=== PATIENT | female | born 1950 | race Caucasian/White ===

== ENCOUNTER 2019-01-22 22:19 | Observation (INO) ==
--- NOTE | 2019-01-22 22:23 | Emergency Department Note ---
Disposition Clinical Impression: CVA (cerebral vascular accident) Qualifiers: CVA mechanism: other Qualified Code(s): I63.89 - Other cerebral infarction Disposition: Admitted As Inpatient Condition: Fair [facility]Primary Care Provider[facility] - Forms: ED Satisfaction Letter Time of Disposition: 23:17 Neuro HPI - General Stated Complaint: CVA Time Seen by Provider: 01/22/19 22:22 Source: patient Mode of arrival: EMS Limitations: no limitations Nursing Notes Reviewed: Yes Vital Signs Reviewed: Yes - History of Present Illness HPI Narrative: Patient is a 68-year-old female who is presenting via EMS from [facility] for abdominal concern and neurological changes. Patient with history of type 2 diabetes, COPD, TIA 1 year ago. Per [facility] as well as the patient, approximately one week ago, she had a headache with subsequent right hand numbness tingling and weakness, as well as some drooping to the right side of her face. She states this is gone unchanged for the past week. She denies any trauma or fall, she is on any anticoagulation medication. She denies any lower extremity weakness or sensation changes. She also states that she has been having difficulty with ambulation and feeling unsteady on her feet. She denies any falls. Patient denies any history of neurological deficits following her TIA. Per patient presently 2 months ago she had been admitted to the [facility], following this incident she had a scab to her right mid abdomen following heparin injections. About one month ago she noticed that there was a drainage from the site she described it is yellow, she states this is been very tender to touch is noticed some slight redness. She has not had any drainage for the past few weeks, she has had slight scant blood from the area. She denies any fevers or chills. - Related Data Home Medications: Home Medications Medication Instructions Recorded Confirmed Aspirin [Lo-Dose Aspirin EC] 81 mg PO DAILY 06/15/17 06/30/17 Cetirizine HCl [Zyrtec] 10 mg PO DAILY 06/15/17 06/30/17 Cholecalciferol (Vitamin D3) 2,000 unit PO DAILY 06/15/17 06/30/17 [Vitamin D3] Ferrous Sulfate [Slow Release Iron] 47.5 mg PO BID 06/15/17 06/30/17 Guaifenesin [Mucus Relief] 400 mg PO DAILY 06/15/17 06/30/17 Insulin Glargine [Lantus] 36 unit SQ BID 06/15/17 06/30/17 Insulin LISPRO [HumaLOG] 0 units SQ TIDWM 06/15/17 06/30/17 Losartan Potassium [Cozaar] 100 mg PO DAILY 06/15/17 06/30/17 Omeprazole [PriLOSEC] 20 mg PO DAILY 06/15/17 06/30/17 Potassium Chloride [Klor-Con 10] 10 meq PO DAILY 06/15/17 06/30/17 Pregabalin [Lyrica] 100 mg PO TID 06/15/17 06/30/17 Rosuvastatin Calcium [Crestor] 20 mg PO DAILY 06/15/17 06/30/17 Topiramate [Trokendi Xr] 50 mg PO DAILY 06/15/17 06/30/17 Calcium Carbonate [Calcium] 500 mg PO DAILY 06/30/17 06/30/17 Metoprolol [Lopressor] 5 mg PO DAILY 06/30/17 06/30/17 Multivitamin,Stress Formula 1 each PO DAILY 06/30/17 06/30/17 [Stress Formula] [place]-3 Fatty Acids/Fish Oil [[facility] 1 tab PO DAILY 06/30/17 06/30/17 Fish Oil 1,000 mg Softgel] Allergies/Adverse Reactions: Allergies Allergy/AdvReac Type Severity Reaction Status Date / Time atorvastatin Allergy Agitated Verified 06/30/17 15:20 All systems ED: reviewed and negative except as stated. Review of Systems: As Per HPI Constitutional: Denies: fever, chills ENT ED: Denies: congestion Cardiovascular: Denies: chest pain, palpitations, edema Respiratory: Denies: cough, dyspnea, wheezes, sputum production Gastrointestinal: Reports: abdominal pain. Denies: nausea, vomiting Genitourinary: Denies: urgency Musculoskeletal: Denies: back pain Integumentary: Denies: rash Neurological: Reports: weakness, numbness, paresthesias. 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 - Social History Smoking Status: Current every day smoker Smokeless Tobacco Status: No Alcohol use: Reports: none Drug use: Reports: none Physical Exam - General Limitations: no limitations General appearance: alert, in no apparent distress - Head Head exam: atraumatic, normocephalic, normal inspection - Eye Eye exam: Present: normal appearance, PERRL, EOMI - ENT ENT exam: normal exam, normal oropharynx, mucous membranes moist - Neck Neck exam: Present: normal inspection, full ROM, trachea midline - Chest Chest inspection: Present: normal inspection, symmetric chest wall rise - Respiratory Respiratory exam: Present: normal lung sounds bilaterally - Cardiovascular Cardiovascular exam: Present: regular rate, normal rhythm, normal heart sounds - Abdominal Exam Abdominal exam: Present: soft, Non-Tender, other (Patient with a 0.5 cm x 0.5 cm scab to the right mid abdomen, without fluctuance, induration or surrounding erythema. No cellulitic changes noted to the skin. No bleeding noted.). Absent: distention, guarding, rebound - Extremities Exam Extremities exam: Present: normal inspection, full ROM. Absent: tenderness, pedal edema - Neurological Exam Neurological exam: Present: alert, oriented X3 - Expanded Neurological Exam Patient oriented to: Present: person, place, time Speech: Present: fluid speech Cranial nerves: EOM function (II, III, IV, ): Normal, facial sensation (V): Normal, facial palsy (VII): Abnormal Right, gag reflex (IX): Normal, spinal accessory function (XI): Normal, tongue deviation (XII): Normal Cerebellar function: finger to nose: Normal Motor strength - LUE: 4/5 Motor strength - RUE: 5/5 Motor strength - LLE: 5/5 Motor strength - RLE: 5/5 Upper motor neuron exam: michelle neglect: Absent bilaterally, pronator drift: Absent bilaterally Sensory exam upper extremity: light touch: Normal Sensory exam lower extremity: light touch: Normal Coma Scale Eye Opening: Spontaneous Coma Scale Motor Response: Obeys Commands Coma Scale Verbal Response: Oriented Coma Scale Total: 15 - Psychiatric Psychiatric exam: Present: normal affect, normal mood - Skin Skin exam: Present: warm, dry, intact, normal color Course Vital Signs Temperature 98.4 F 01/22/19 22:35 Pulse Rate 86 01/22/19 22:35 Respiratory Rate 16 01/22/19 22:35 Blood Pressure 147/81 01/22/19 22:35 O2 Sat by Pulse Oximetry 97 01/22/19 22:35 Temperature 98.4 F 01/22/19 22:35 Pulse Rate 86 01/22/19 22:35 Respiratory Rate 16 01/22/19 22:35 Blood Pressure 147/81 01/22/19 22:35 O2 Sat by Pulse Oximetry 97 01/22/19 22:35 Oxygen Delivery Oxygen Delivery Room Air Neuro Symptoms/Deficit - MDM Narrative Medical decision making narrative: Patient is a 68-year-old female who is presenting with multiple complaints. Patient was sent [facility] the [facility] via [facility] for new neurological deficit. Patient states that approximate one week ago she began to have right-sided facial drooping as well as right hand weakness. This has been unchanged for the past week with no new neurological changes. On examination, patient is alert and oriented 3, GCS of 15, NIH of 1, patient is outside the TPA candidate window is been going on for 1 week. No new neuro neurological findings within the past 24 hours. Patient was sent from the [facility] with lab work performed, CBC is unremarkable, BMP shows normal electrolytes with a serum creatinine of 2.15. Patient also had a CT of the head performed which showed no acute intracranial changes. There is redemonstration of findings suggestive of age-related atrophy and minimal chronicle microvascular ischemic changes. Chronic lacunar infarct versus prominent perivascular space involving the right inferior putamen. This is similar to prior examination. At this point in time, patient will be admitted further neurological evalu ations. Do not feel as though acute management is necessary. Stroke alert was not called this is been ongoing for the past week and unchanged. No further imaging is needed at this point in time, as the [facility] has already performed this. Further blood work was artery performed by the [facility]. No further abdominal workup is necessary, this appears to be a cutaneous scab without fluctuance or induration. No further imaging is necessary. Patient admitted by Dr. Cuadra at 2340. - Medical Records Medical records reviewed: Yes I reviewed the patient's medical records. - Lab Data Lab results reviewed: Yes I reviewed the patient's lab results. - Radiology Data Radiology results reviewed: Yes I reviewed the patient's radiology results. NIH Stroke Scale - Level of Consciousness LOC: Alert - LOC Questions LOC Questions: Answers both correctly - LOC Commands LOC Commands: Performs both correctly - Best Gaze Best Gaze: Normal - Visual Visual: No visual loss - Facial Palsy Facial Palsy: Minor asymmetry on smiling, flattened nasolabial fold - Motor Arms Motor Arm-Left: No drift for 10 seconds Motor Arm-Right: No drift for 10 seconds - Motor Legs Motor Leg-Left: No drift for 5 seconds Motor Leg-Right: No drift for 5 seconds - Limb Ataxia Limb Ataxia: Absent of affected limb too weak to perform exam - Sensory Sensory: Normal - Best Language Best Language: No aphasia - Dysarthria Dysarthria: Normal - Extinction and Inattention Extinction and Inattention: Normal - NIHSS Total Score NIHSS Total Score: 1 TPA Checklist - LKW: 3-4.5 hrs Add. Warnings/Precautions Patient/family understanding: The patient/family members have been counseled and understood the risk, benefit, and alternatives of treatment.
--- NOTE | 2019-01-22 22:38 | Emergency Department Note ---
Disposition Clinical Impression: CVA (cerebral vascular accident) Qualifiers: CVA mechanism: unspecified Qualified Code(s): I63.9 - Cerebral infarction, unspecified Disposition: Admitted As Inpatient Condition: Good Time of Disposition: 23:17 General Adult HPI - General Stated complaint: CVA Time Seen by Provider: 01/22/19 22:22 - Related Data Home Medications Medication Instructions Recorded Confirmed Aspirin [Lo-Dose Aspirin EC] 81 mg PO DAILY 06/15/17 01/22/19 Cetirizine HCl [Zyrtec] 10 mg PO DAILY 06/15/17 01/22/19 Cholecalciferol (Vitamin D3) 2,000 unit PO DAILY 06/15/17 01/22/19 [Vitamin D3] Ferrous Sulfate [Slow Release Iron] 65 mg PO BID 06/15/17 01/22/19 Guaifenesin [Mucus Relief] 400 mg PO DAILY 06/15/17 01/22/19 Insulin Glargine [Lantus] 66 unit SQ BID 06/15/17 01/22/19 Insulin LISPRO [HumaLOG] 45 units SQ TIDWM 06/15/17 01/22/19 Losartan Potassium [Cozaar] 100 mg PO DAILY 06/15/17 01/22/19 Omeprazole [PriLOSEC] 20 mg PO DAILY 06/15/17 01/22/19 Potassium Chloride [Klor-Con 10] 10 meq PO DAILY 06/15/17 01/22/19 Pregabalin [Lyrica] 75 mg PO BID 06/15/17 01/22/19 Rosuvastatin Calcium [Crestor] 20 mg PO DAILY 06/15/17 01/22/19 Topiramate [Trokendi Xr] 50 mg PO DAILY 06/15/17 01/22/19 Calcium Carbonate [Calcium] 500 mg PO DAILY 06/30/17 01/22/19 Metoprolol [Lopressor] 5 mg PO DAILY 06/30/17 01/22/19 Multivitamin,Stress Formula 1 each PO DAILY 06/30/17 01/22/19 [Stress Formula] [place]-3 Fatty Acids/Fish Oil [[facility] 1 tab PO DAILY 06/30/17 01/22/19 Fish Oil 1,000 mg Softgel] Allergies Allergy/AdvReac Type Severity Reaction Status Date / Time atorvastatin Allergy Agitated Verified 01/11/18 15:20 metformin Allergy See Verified 01/23/19 01:36 Comments Past Medical History - Past Medical History Medical history: Reports: COPD, diabetes, hyperlipidemia, hypertension, liver disease, migraine, renal disease, other Psychiatric history: Reports: anxiety 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 - Social History Smoking Status: Current every day smoker Smokeless Tobacco Status: No Alcohol use: Reports: none Drug use: Reports: none Course Vital Signs Temperature 98.4 F 01/22/19 22:35 Pulse Rate 86 01/22/19 22:35 Respiratory Rate 16 01/22/19 22:35 Blood Pressure 147/81 01/22/19 22:35 O2 Sat by Pulse Oximetry 97 01/22/19 22:35 Temperature 98.1 F 01/23/19 11:57 Pulse Rate 72 01/23/19 11:57 Respiratory Rate 15 01/23/19 11:57 Blood Pressure 138/65 01/23/19 11:57 O2 Sat by Pulse Oximetry 96 01/23/19 11:57 Oxygen Delivery Oxygen Delivery Room Air Medical Decision Making - Lab Data Result diagrams: 01/23/19 04:34 01/23/19 04:34 Attestation Statement - Attestation Attestation: I examined this patient and my medical decision-making was reviewed with the Resident Physician. I agree with the documented findings, disposition and treatment plan as described except to the extent set forth below. Patient 68-year-old female that presents to emergency department with chief complaint of right-sided weakness. Patient states that for the last week she has noticed that she had a right-sided facial droop and no she has had decreased strength in her right upper extremity. Patient reports [facility] where she had a CT head and labs done and the patient was transferred to our facility for a neurological evaluation. Physical exam patient is awake alert and in no acute distress patient has a right-sided facial droop and decreased strength in her right upper extremity. Medical decision management the test for review from the [facility] and the case will be discussed with the hospitalist and the plan is to admit the patient for a CVA workup.
--- NOTE | 2019-01-22 23:00 | Emergency Department Note ---
Disposition Clinical Impression: CVA (cerebral vascular accident) Qualifiers: CVA mechanism: unspecified Qualified Code(s): I63.9 - Cerebral infarction, unspecified Disposition: Admitted As Inpatient Condition: Fair Time of Disposition: 23:30 General Adult HPI - General Chief complaint: ED Neuro Symptoms/Deficit Stated complaint: CVA Time Seen by Provider: 01/22/19 22:22 Source: patient - History of Present Illness HPI Narrative: 68 yo female with PMH of stroke, HTN, HLD, renal disease, migraines, diabetes, and COPD. Pt reports she had a headache that was abnormal from the regular migraines. Pt describes the acute onset of headache located in the temples and back of the head, describes the pain as a constant, throbbing/pressure-type. Going to sleep relieves the pain. Pt denies worsening factors. 3-4/10 in severity. Pt reports she experienced a right sided facial weakness, slurring of her speech, and numbness and tingling in her hands and fingers shortly after onset of headache. Pt reports no changes in vision or hearing, no changes in SOB, no N/V, no changes in urination. [facility] rec[facility]ved a work-up for stroke and was transferred to [facility] for admittance to the floor. [facility] the [facility] to [facility]o stroke. CT of head and blood work was taken. Pt reports having headaches. BALLESTEROS tightening around her head. Pain around the temples and back of head worse on the right. Acute onset. Constant pain. Throbbing / pressure-type pain. Going to sleep relieves. No worsening factors. 3-4/10 now. Usually gets headaches but this was abnormal. Nausea. Pain Scale: 5 - Related Data Home Medications Medication Instructions Recorded Confirmed Aspirin [Lo-Dose Aspirin EC] 81 mg PO DAILY 06/15/17 01/22/19 Cetirizine HCl [Zyrtec] 10 mg PO DAILY 06/15/17 01/22/19 Cholecalciferol (Vitamin D3) 2,000 unit PO DAILY 06/15/17 01/22/19 [Vitamin D3] Ferrous Sulfate [Slow Release Iron] 65 mg PO BID 06/15/17 01/22/19 Guaifenesin [Mucus Relief] 400 mg PO DAILY 06/15/17 01/22/19 Insulin Glargine [Lantus] 66 unit SQ BID 06/15/17 01/22/19 Insulin LISPRO [HumaLOG] 45 units SQ TIDWM 06/15/17 01/22/19 Losartan Potassium [Cozaar] 100 mg PO DAILY 06/15/17 01/22/19 Omeprazole [PriLOSEC] 20 mg PO DAILY 06/15/17 01/22/19 Potassium Chloride [Klor-Con 10] 10 meq PO DAILY 06/15/17 01/22/19 Pregabalin [Lyrica] 75 mg PO BID 06/15/17 01/22/19 Rosuvastatin Calcium [Crestor] 20 mg PO DAILY 06/15/17 01/22/19 Topiramate [Trokendi Xr] 50 mg PO DAILY 06/15/17 01/22/19 Calcium Carbonate [Calcium] 500 mg PO DAILY 06/30/17 01/22/19 Metoprolol [Lopressor] 5 mg PO DAILY 06/30/17 01/22/19 Multivitamin,Stress Formula 1 each PO DAILY 06/30/17 01/22/19 [Stress Formula] [place]-3 Fatty Acids/Fish Oil [[facility] 1 tab PO DAILY 06/30/17 01/22/19 Fish Oil 1,000 mg Softgel] Allergies Allergy/AdvReac Type Severity Reaction Status Date / Time atorvastatin Allergy Agitated Verified 06/30/17 15:20 metformin Allergy See Verified 01/23/19 01:36 Comments Constitutional: Reports: weakness (New onset ) Eyes: Denies: vision change Cardiovascular: Denies: chest pain, palpitations, dyspnea on exertion, edema, syncope Respiratory: Denies: cough, dyspnea, wheezes, hemoptysis, stridor Gastrointestinal: Reports: diarrhea. Denies: abdominal pain, vomiting Neurological: Reports: headache, numbness (hand and fingers more on the right ), paresthesias, other (Slurring of speech out of the normal ). 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 - Social History Smoking Status: Current every day smoker Smokeless Tobacco Status: No Alcohol use: Reports: none Drug use: Reports: none Physical Exam - General General appearance: alert Course Vital Signs Temperature 98.4 F 01/22/19 22:35 Pulse Rate 86 01/22/19 22:35 Respiratory Rate 16 01/22/19 22:35 Blood Pressure 147/81 01/22/19 22:35 O2 Sat by Pulse Oximetry 97 01/22/19 22:35 Temperature 98.0 F 01/23/19 01:15 Pulse Rate 81 01/23/19 01:15 Respiratory Rate 17 01/23/19 01:15 Blood Pressure 117/67 01/23/19 01:15 O2 Sat by Pulse Oximetry 94 01/23/19 01:15 Oxygen Delivery Oxygen Delivery Room Air
[2019-01-22] MEDS ORDERED: 0.9 % Sodium Chloride 1,000 ML IVC ONE (23:31)
[2019-01-23] MEDS ORDERED: *HR* Dextrose 50 % in Water (Syg) 50 ML SYRINGE IVP PRN (01:00)
[2019-01-23] MEDS ORDERED: Dextrose Gel 15 GM/37.5 ML TUBE PO PRN ×2 (01:00)
[2019-01-23] MEDS ORDERED: D5% in Water 1,000 ML IVC PRN (01:00)
[2019-01-23] MEDS ORDERED: Insulin DETEMIR 100 UNIT/ML X5UNITS SQ SCH (01:15)
[2019-01-23] MEDS: Insulin LISPRO 300 UNITS/3 ML VIAL SQ SCH ×3 (01:47→12:23)
[2019-01-23 05:53] LABS: Bilirubin,Urine Negative (Negative); Blood,Urine Negative (Negative); Clarity,Urine Cloudy (Clear); Color,Urine Yellow (Yellow); Glucose,Urine (UA) >=1000 mg/dL (Normal); Ketones,Urine Negative (Negative); Leukocyte Esterase,Urine Negative (Negative); Nitrite,Urine Negative (Negative); Protein,Urine Negative (Neg-Trace); Urobilinogen,Urine Normal (Normal)
[2019-01-23 05:55] LABS: Bacteria,Urine None Seen per hpf (None-Few); Hyaline Casts,Urine None Seen per lpf (None-Few); RBC,Urine 0-3 per hpf (0-3); Squamous Epithelial Cell,Urine Many per lpf (None-Few); WBC,Urine 0-3 per hpf (0-3)
--- NOTE | 2019-01-23 05:56 | Internal Med History&Physical ---
Date of Encounter: 01/23/19 Time of Encounter: 05:48 Internal Medicine - H&P: HPI Chief complaint: Right hand weakness History of present illness: Ms. Simeon is a 68 year old female with a past medical history of type 2 diabetes, diabetes gastroparesis, chronic low back pain, chronic kidney disease, anxiety disorder, hypertension who presented to the ED from the [place] due to concern for neurologic changes. [facility] as well as the patient, approximately one week ago, she had a headache with subsequent right hand numbness tingling and weakness, as well as some drooping to the right side of her face. She states this is unchanged for the past week. She denies any trauma or fall, she is on any anticoagulation medication. She denies any lower extremity weakness or sensation changes. She also states that she has been having difficulty with ambulation and feeling unsteady on her feet. Patient does have a history of diabetic neuropathy. Patient does report a previous history of a "mini stroke". Patient does currently smoke half pack a day and has a chronic smoking history. She reports difficult to control diabetes with a elevated hemoglobin A1c in the double digits. No family history of stroke. On initial assessment patient was afebrile, hemodynamically stable. Initial NIH of 1. [facility], CBC is unremarkable, BMP shows normal electrolytes with a serum creatinine of 2.15. Patient also had a CT of the head performed which showed no acute intracranial changes. There is redemonstration of findings suggestive of age-related atrophy and minimal chronicle microvascular ischemic changes. Chronic lacunar infarct versus prominent perivascular space involving the right inferior putamen. This is sim ilar to prior examination. Patient will be admitted for further CVA/TIA workup. Past Med Surg Social Fam HX - Past Medical History Medical history: COPD, diabetes, hyperlipidemia, hypertension, liver disease, migraine, renal disease, other Additional medical history: Enlarged nodes, neuropathy, vascular dementia, hernia, anemia Psychiatric history: anxiety - Past Surgical History Surgical History: appendectomy, cholecystectomy Additional surgical history: thyroid biopsy, hemicolectomy - Social History Smoking Status: Current every day smoker Packs per day: 0.5 Smokeless Tobacco Status: No Alcohol use: none Drug use: none - Family History Grandfather Hx Family Cancer: Yes (lung) Internal Medicine - H&P: Meds Aspirin [Lo-Dose Aspirin EC] 81 mg PO DAILY 06/15/17 [History] Cetirizine HCl [Zyrtec] 10 mg PO DAILY 06/15/17 [History] Cholecalciferol (Vitamin D3) [Vitamin D3] 2,000 unit PO DAILY 06/15/17 [History] Ferrous Sulfate [Slow Release Iron] 65 mg PO BID 06/15/17 [History] Guaifenesin [Mucus Relief] 400 mg PO DAILY 06/15/17 [History] Insulin Glargine [Lantus] 66 unit SQ BID 06/15/17 [History] Insulin LISPRO [HumaLOG] 45 units SQ TIDWM 06/15/17 [History] Losartan Potassium [Cozaar] 100 mg PO DAILY 06/15/17 [History] Omeprazole [PriLOSEC] 20 mg PO DAILY 06/15/17 [History] Potassium Chloride [Klor-Con 10] 10 meq PO DAILY 06/15/17 [History] Pregabalin [Lyrica] 75 mg PO BID 06/15/17 [History] Rosuvastatin Calcium [Crestor] 20 mg PO DAILY 06/15/17 [History] Topiramate [Trokendi Xr] 50 mg PO DAILY 06/15/17 [History] Calcium Carbonate [Calcium] 500 mg PO DAILY 06/30/17 [History] Metoprolol [Lopressor] 5 mg PO DAILY 06/30/17 [History] Multivitamin,Stress Formula [Stress Formula] 1 each PO DAILY 06/30/17 [History] [place]-3 Fatty Acids/Fish Oil [Cvs Fish Oil 1,000 mg Softgel] 1 tab PO DAILY 06/30/17 [History] Allergy/AdvReac Type Severity Reaction Status Date / Time atorvastatin Allergy Agitated Verified 06/30/17 15:20 metformin Allergy See Verified 01/23/19 01:36 Comments All Systems PM: A 10-system review of systems was performed and is negative for pertinent findings except as documented above in the HPI. - Constitutional Constitutional: no chills, no fever(s), no night sweats - EENT Eyes: no change in vision, no discharge, no pain, no photophobia Ears: no ear discharge, no ear pain, no tinnitus Nose, mouth and throat: no dysphagia, no nasal discharge, no neck pain, no sore throat - Cardiovascular Cardiovascular ROS IM: no chest pain, no diaphoresis, no dyspnea, no lightheadedness, no palpitations, no syncope - Respiratory Respiratory: no cough, no dyspnea, no wheezing, no excessive phlegm production - Gastrointestinal Gastrointestinal: no abdominal pain, no diarrhea, no hematemesis, no hematochezia, no melena, no nausea, no vomiting - Genitourinary Genitourinary: no change in urinary stream, no dysuria, no flank pain, no hematuria - Musculoskeletal Musculoskeletal ROS IM: no numbness, no tingling - Integumentary Integumentary IM: no rash, no unusual bruising - Neurological Neurological ROS: no confusion, no convulsions, no focal weakness, no numbness, no tingling, no tremor(s) - Hematologic/Lymphatic Hematologic/Lymphatic: no easy bruising - Constitutional Vitals: Temp Pulse Resp BP Pulse Ox 98.0 F 81 17 117/67 94 01/23/19 01:15 01/23/19 01:15 01/23/19 01:15 01/23/19 01:15 01/23/19 01:15 Exam: General: Alert and oriented 3 Skin:Normal color, no rash, no lesions. HEENT:EOM, pupils equal, round and reactive. Cardiovascular:Normal S1 & S2, no rubs, murmurs or gallops. No JVD. Pulse regular. Lungs:Normal breath sounds, no wheezes or crackles. Abdomen:Soft, non-tender, no rigidity. Extremities:No deformity, no edema or tenderness, no joint swelling or clubbing. Neurological:Normal cognition ; cranial nerves II through XII intact; no evidence of pronator drift; sensation intact; no dysmetria; muscle strength in the upper and lower extremities 5 out of 5 bilaterally Pulses:Carotid and radial pulses normal +2. Rest of the physical exam is non contributory Internal Med - H&P Results - Labs CBC & Chem 7: 01/23/19 04:34 01/23/19 04:34 - Assessment and Plan (1) Stroke-like symptoms Current Visit: Yes Status: Acute Assessment and plan: Patient presenting with 1 week history of reported right-sided facial droop, numbness and tingling and right hand weakness. Given duration of symptoms stroke alert was not called. CT of the head performed at the [facility] reportedly was unremarkable. Patient has a past medical history significant for hypertension, smoking history and poorly controlled diabetes. Reports episode of a TIA in the past. On my assessment there was no evidence of any facial droop. Sensation was intact. I did not note any diminished strength in the right extremity. Otherwise neurologically intact. -Telemetry -Neurochecks -Lipid panel; A1c -Echocardiogram; bilateral carotid Doppler -MRI in the morning (2) [id number] kidney injury Current Visit: Yes Status: Acute Assessment and plan: Patient has a history of chronic kidney disease likely secondary to poorly controlled diabetes. Initial creatinine of 2.15. Previous creatinine in October of this year was 1.28. Previous to that patient appeared to have a baseline creatinine around 1. -Patient received fluid bolus in the ED -Reassess kidney function in the morning Qualifiers: Acute renal failure type: unspecified Chronic kidney disease stage: unspecified stage Qualified Code(s): N17.9 - Acute kidney failure, unspecified; N18.9 - Chronic kidney disease, unspecified (3) Type 2 diabetes mellitus Current Visit: Yes Status: Acute Assessment and plan: Patient reports history of poorly controlled diabetes. Has a history of diabetic gastroparesis and neuropathy. On arrival patient was hyperglycemic with a serum glucose over 300. -We will start patient on sliding scale plus basal insulin -ADA diet Qualifiers: Diabetes mellitus residential insulin use: unspecified residential insulin use status Diabetes mellitus complication detail: with chronic kidney disease Chronic kidney disease stage: unspecified stage Qualified Code(s): E11.22 - Type 2 diabetes mellitus with diabetic chronic kidney disease (4) Hypertension Current Visit: Yes Status: Acute Assessment and plan: History of hypertension. Resume home antihypertensives. Qualifiers: Hypertension type: essential hypertension Qualified Code(s): I10 - Essential (primary) hypertension (5) DVT prophylaxis Current Visit: Yes Status: Acute Assessment and plan: Subcutaneous heparin - Time Spent With Patient Total time spent is greater than 50% in coordination of care (as documented) at patient's floor/unit and/or counseling patient:
[2019-01-23 06:01] LABS: Amphetamine Screen,Urine Negative ng/mL (Cutoff=1000); Barbiturate Screen,Urine Negative ng/mL (Cutoff=200)
[2019-01-23 06:02] LABS: Benzodiazepines Screen,Urine Negative ng/mL (Cutoff=300); Cannabinoid Screen,Urine Negative ng/mL (Cutoff = 50); Cocaine Screen,Urine Negative ng/mL (Cutoff= 300); Opiate Screen,Urine Negative ng/mL (Cutoff=300); Phencyclidine Screen,Urine Negative ng/mL (Cutoff=25)
[2019-01-23 06:19] LABS: INR 1.1; Prothrombin Time 12.1 Seconds (9.4-12.1)
[2019-01-23 06:21] LABS: Basophils % 0.7 %; Eosinophils # 0.2 K/mcL (0.0-0.6); Eosinophils % 2.9 %; Hematocrit 35.1 % (35.3-44.9); Hemoglobin 10.8 g/dL (11.5-15.4); Immature Granulocytes % 0.5 % (0-4); Lymphocytes # 2.1 K/mcL (0.6-4.6); Mean Corpuscular HGB Conc 30.8 g/dL (31.6-35.5); Mean Corpuscular Hemoglobin 29.5 pg (28.0-33.3); Mean Corpuscular Volume 95.9 fL (83.0-100.0); Mean Platelet Volume 12.6 fL (9.4-12.4); Monocytes # 0.4 K/mcL (0.0-1.3); Monocytes % 6.7 %; Neutrophils # 3.2 K/mcL (1.6-8.9); Platelet Count 123 K/mcL (140-400); Red Blood Count 3.66 M/mcL (3.82-4.97); Red Cell Distribution Width 13.1 % (11.5-14.5); Segmented Neutrophils % 53.2 %; White Blood Count 5.9 K/mcL (4.3-11.1)
[2019-01-23 06:22] LABS: Activated Partial Thrombo Time 32.7 Seconds (26.0-36.0)
[2019-01-23] MEDS: *HR* Heparin 5,000 UNIT/ML VIAL SQ SCH ×2 (06:32→14:26)
[2019-01-23 06:36] LABS: Alanine Aminotransferase 41 Units/L (7-52); Albumin 3.4 g/dL (3.5-5.7); Albumin/Globulin Ratio 1.1 (1.1-2.2); Alkaline Phosphatase 61 Units/L (34-104); Aspartate Amino Transferase 25 Units/L (13-39); BUN/Creatinine Ratio 19 (6-26); Bilirubin,Total 0.2 mg/dL (0.3-1.0); Blood Urea Nitrogen 32 mg/dL (8-23); Calcium 8.7 mg/dL (8.6-10.3); Carbon Dioxide 21 mEq/L (23-29); Chloride 106 mEq/L (98-107); Chol/HDL Ratio 7.9 (0-4.9); Cholesterol 174 mg/dL (< 200); Glucose 303 mg/dL (70-105); HDL Cholesterol 22 mg/dL (40-59); LDL Cholesterol,Direct 66 mg/dL (75-193); Osmolality,Calculated 298 (280-300); Potassium 3.9 mEq/L (3.5-5.1); Sodium 135 mEq/L (136-145); Total Protein 6.4 g/dL (6.4-8.9); Triglycerides 622 mg/dL (< 150); Troponin I 0.05 ng/mL (< 0.04); eGFR For African Americans 38 (> 60); eGFR For Non-African Americans 31 (> 60)
[2019-01-23] MEDS ORDERED: CVS FISH OIL PO SCH (09:00)
[2019-01-23] MEDS ORDERED: Loratadine 10 MG TABLET PO SCH (09:00)
[2019-01-23] MEDS ORDERED: GuaiFENesin Liq 200 MG/10 ML UDC PO SCH (09:00)
[2019-01-23] MEDS ORDERED: Metoprolol XL (24 HR) Succ 25 MG TAB.ER.24H PO SCH (09:00)
[2019-01-23] MEDS ORDERED: Pregabalin 75 MG CAPSULE PO SCH (09:00)
[2019-01-23] MEDS ORDERED: Topiramate 25 MG TABLET PO SCH (09:00)
[2019-01-23] MEDS ORDERED: Vitamin B Complex/Vit C/Vit E 1 EACH TABLET PO SCH (09:00)
[2019-01-23 10:22] LABS: Estimated Average Glucose 252 mg/dl
[2019-01-23] MEDS ORDERED: Cholecalciferol (D-3) 1,000 UNIT (25MCG) TABLET PO SCH (12:00)
[2019-01-23 12:08] VITALS: BP 138/65
--- NOTE | 2019-01-23 14:24 | Electrocardiograph Report ---
[place] [id number] Test Date: 2019-01-23 Pat Name: Casie Simeon Department: 113 Room: 3B Gender: F [employer]: : [id number] Requested By: Donald Cuadra Order Number: [id number] Reading MD: Karla Gracia Measurements Intervals [place] Rate: 81 P: 64 HI: 155 QRS: -4 QRSD: 95 T: 63 QT: 404 QTc: 441 Interpretive Statements SINUS RHYTHM Electronically Signed On 01-23-2019 14:22:49 EDT by Karla Gracia
--- NOTE | 2019-01-23 15:11 | Discharge Summary ---
- NOTES TO OUTPATIENT PROVIDER Notes to Outpatient Provider: f/u with PCP in one week. Please take your inuslin as directed by your PCP.. Your blood sugars are so uncontrolled with your HbA1C @ 10.4. Please quit smoking. Date of Encounter: 01/23/19 Time of Encounter: 15:08 - Discharge Diagnosis (1) Right upper extremity numbness Priority: Primary Status: Acute (2) Bhpqy-[id number]-[id number] kidney injury Priority: Secondary Status: Acute Qualifiers: Acute renal failure type: unspecified Chronic kidney disease stage: unspecified stage Qualified Code(s): N17.9 - Acute kidney failure, unspecified; N18.9 - Chronic kidney disease, unspecified (3) Elevated troponin Priority: Primary Status: Acute (4) Type 2 diabetes mellitus Priority: Secondary Status: Chronic Qualifiers: Diabetes mellitus rn cardiology insulin use: unspecified fci insulin use status Diabetes mellitus complication detail: with chronic kidney disease Chronic kidney disease stage: unspecified stage Qualified Code(s): E11.22 - Ty pe 2 diabetes mellitus with diabetic chronic kidney disease (5) Hypertension Priority: Secondary Status: Acute Qualifiers: Hypertension type: essential hypertension Qualified Code(s): I10 - Essential (primary) hypertension (6) DVT prophylaxis Priority: Secondary Status: Acute Hospital course: Ms. Simeon is a 68 year old female with a past medical history of uncontrolled type 2 diabetes, diabetes gastroparesis, chronic low back pain, chronic kidney disease, anxiety disorder, hypertension who presented to the ED from the [place] due to concern for neurologic changes. [facility] as well as the patient, approximately one week ago, she had a headache with subsequent right hand numbness tingling and weakness, as well as some drooping to the right side of her face. Patient does have a history of diabetic neuropathy. Patient does currently smoke half pack a day and has a chronic smoking history. She reports difficult to control diabetes with a elevated hemoglobin A1c in the double digits. At the [place] hospital patient also had a CT of the head performed which showed no acute intracranial changes. There is redemonstration of findings suggestive of age-related atrophy and minimal chronicle microvascular ischemic changes. She was admitted in the hospital and placed on threat monitoring analyst. She does have slightly elevated troponin @ 0.05, adynamic and flat. Her elevated troponin most likely due to CKD. She denied any CP. Her EKG showed NSR, No acute ST T changes noticed. Her 2 D Echo showed preserved LVEF and mild left ventricular diastolic dysfunction. She did have MRI of Brain does which did not show any acute infarction. Her Rt arm numbness seems to be due to hyperglycemia and peripheral neuro bran.. I did recommend her to f/u with Neuro as an out pt. - Time Spent with Patient Total time spent providing and/or coordinating discharge services: - Discharge Medications Prescriptions: Continued Omeprazole [PriLOSEC] 20 mg PO DAILY Insulin LISPRO [HumaLOG] 45 units SQ TIDWM Losartan Potassium [Cozaar] 100 mg PO DAILY Topiramate [Trokendi Xr] 50 mg PO DAILY Rosuvastatin Calcium [Crestor] 20 mg PO DAILY Pregabalin [Lyrica] 75 mg PO BID Potassium Chloride [Klor-Con 10] 10 meq PO DAILY Insulin Glargine [Lantus] 66 unit SQ BID Guaifenesin [Mucus Relief] 400 mg PO DAILY Ferrous Sulfate [Slow Release Iron] 65 mg PO BID Cholecalciferol (Vitamin D3) [Vitamin D3] 2,000 unit PO DAILY Cetirizine HCl [Zyrtec] 10 mg PO DAILY Aspirin [Lo-Dose Aspirin EC] 81 mg PO DAILY Metoprolol [Lopressor] 5 mg PO DAILY [place]-3 Fatty Acids/Fish Oil [Cvs Fish Oil 1,000 mg Softgel] 1 tab PO DAILY Multivitamin,Stress Formula [Stress Formula] 1 each PO DAILY Calcium Carbonate [Calcium] 500 mg PO DAILY Home Medications: Aspirin [Lo-Dose Aspirin EC] 81 mg PO DAILY 06/15/17 [History] Cetirizine HCl [Zyrtec] 10 mg PO DAILY 06/15/17 [History] Cholecalciferol (Vitamin D3) [Vitamin D3] 2,000 unit PO DAILY 06/15/17 [History] Ferrous Sulfate [Slow Release Iron] 65 mg PO BID 06/15/17 [History] Guaifenesin [Mucus Relief] 400 mg PO DAILY 06/15/17 [History] Insulin Glargine [Lantus] 66 unit SQ BID 06/15/17 [History] Insulin LISPRO [HumaLOG] 45 units SQ TIDWM 06/15/17 [History] Losartan Potassium [Cozaar] 100 mg PO DAILY 12/27/17 [History] Omeprazole [PriLOSEC] 20 mg PO DAILY 06/15/17 [History] Potassium Chloride [Klor-Con 10] 10 meq PO DAILY 06/15/17 [History] Pregabalin [Lyrica] 75 mg PO BID 06/15/17 [History] Rosuvastatin Calcium [Crestor] 20 mg PO DAILY 06/15/17 [History] Topiramate [Trokendi Xr] 50 mg PO DAILY 06/15/17 [History] Calcium Carbonate [Calcium] 500 mg PO DAILY 06/30/17 [History] Metoprolol [Lopressor] 5 mg PO DAILY 06/30/17 [History] Multivitamin,Stress Formula [Stress Formula] 1 each PO DAILY 06/30/17 [History] [place]-3 Fatty Acids/Fish Oil [Cvs Fish Oil 1,000 mg Softgel] 1 tab PO DAILY 06/30/17 [History] Allergies/Adverse Reactions: Allergy/AdvReac Type Severity Reaction Status Date / Time atorvastatin Allergy Agitated Verified 06/30/17 15:20 metformin Allergy See Verified 01/23/19 01:36 Comments Date of admission: 01/23/19 00:09 Primary care physician: PCP [place] - Constitutional Vitals: Temp Pulse Resp BP Pulse Ox 98.1 F 72 15 138/65 96 01/23/19 11:57 01/23/19 11:57 01/23/19 11:57 01/23/19 11:57 01/23/19 11:57 General appearance: Present: cooperative, A&O X 3, no acute distress, answers questions appropriately Exam: Gen: Alert, awake, Oriented to time,place and person Chest: Diminished breath sounds B/L, No wheezing, No crackles, No rales Heart: S1S2+ RRR No murmurs Abd: Soft, NT, BS +, No organomegaly Ext: No edema, pulses are palpable, No calf tenderness Neuro : Rt Arm numbness..Normal motor strength in both upper and lower extremities Skin: No rash. - Patient Status Disposition: Home, Self-Care Condition: Good Overall status at discharge: patient is back to baseline - Discharge Instructions [facility]: [facility] Care Provider[facility] - Fredy Crump [Non-Partnered Physician] - - Diet and Activity Activity: increase activity as tolerated Diet: low salt diet
[2019-01-23] MEDS ORDERED: Aspirin Enteric Coated 81 MG Tablet PO SCH (21:00)
== END 2019-01-23 15:50 | disposition home or self-care (01) ==
LOC: 3BNU 22:19 → EMEROOARM 22:19 → 3BNU 01-23 00:41
PROVIDERS: ADMIT Internal Medicine; ATTEND Internal Medicine

== ENCOUNTER 2020-04-20 21:19 | Inpatient (IN) ==
[2020-04-20] MEDS ORDERED: Famotidine 20 MG/2 ML VIAL IVP ONE (21:51)
[2020-04-20] MEDS ORDERED: Ondansetron 4 MG/2 ML VIAL IVP ONE (21:52)
[2020-04-20] MEDS ORDERED: 0.9 % Sodium Chloride 1,000 ML IVC ONE (21:52)
[2020-04-20] MEDS ORDERED: Isovue-370 500 ML BOTTLE PO ONE (22:22)
[2020-04-20 22:37] LABS: Basophils % 0.9 %; Eosinophils # 0.1 K/mcL (0.0-0.6); Eosinophils % 2.4 %; Hematocrit 29.6 % (35.3-44.9); Hemoglobin 8.8 g/dL (11.5-15.4); Immature Granulocytes % 0.4 % (0-4); Immature Platelets 2.9 % (1.1-6.1); Lymphocytes # 1.2 K/mcL (0.6-4.6); Lymphocytes % 26.4 %; Mean Corpuscular HGB Conc 29.7 g/dL (31.6-35.5); Mean Corpuscular Hemoglobin 31.8 pg (28.0-33.3); Mean Corpuscular Volume 106.9 fL (83.0-100.0); Mean Platelet Volume 11.2 fL (9.4-12.4); Monocytes # 0.4 K/mcL (0.0-1.3); Monocytes % 7.7 %; Neutrophils # 2.8 K/mcL (1.6-8.9); Platelet Count 104 K/mcL (140-400); Red Blood Count 2.77 M/mcL (3.82-4.97); Red Cell Distribution Width 16.5 % (11.5-14.5); Segmented Neutrophils % 62.2 %; White Blood Count 4.5 K/mcL (4.3-11.1)
[2020-04-20 22:43] LABS: INR 1.2; Prothrombin Time 13.9 Seconds (9.4-12.1)
[2020-04-20 22:58] LABS: Albumin 3.7 g/dL (3.5-5.7); Albumin/Globulin Ratio 1.1 (1.1-2.2); Bilirubin,Direct 0.1 mg/dL (0.0-0.2); Bilirubin,Indirect 0.2 mg/dL (0.0-1.0); Bilirubin,Total 0.3 mg/dL (0.3-1.0); Calcium 8.4 mg/dL (8.6-10.3); Globulin 3.4 g/dL (2.4-3.5); Potassium 3.5 mEq/L (3.5-5.1); Total Protein 7.1 g/dL (6.4-8.9)
[2020-04-20 23:04] LABS: Bilirubin,Urine Negative (Negative); Blood,Urine Negative (Negative); Clarity,Urine Clear (Clear); Color,Urine Light-Yellow (Yellow); Glucose,Urine (UA) 500 mg/dL (Normal); Ketones,Urine Negative (Negative); Leukocyte Esterase,Urine Negative (Negative); Mucus,Urine Few per lpf (None-Few); Nitrite,Urine Negative (Negative); Protein,Urine Trace mg/dL (Neg-Trace); RBC,Urine 0-3 per hpf (0-3); Specific Gravity,Urine 1.018 (1.010-1.025); Squamous Epithelial Cell,Urine Few per hpf (None-Few); Urobilinogen,Urine Normal (Normal); WBC,Urine 0-3 per hpf (0-3)
[2020-04-21] MEDS ORDERED: cefTRIAXone 1,000 MG in 0.9 % Sodium Chloride Mini Bag 100 ML IVPB ONE (03:30)
[2020-04-21] MEDS ORDERED: Aspirin 81 MG TAB.CHEW PO ONE (03:31)
[2020-04-21 03:48] LABS: Potassium 3.6 mEq/L (3.5-5.1)
[2020-04-21] MEDS ORDERED: Simethicone 80 MG TAB.CHEW PO PRN (04:43)
[2020-04-21] MEDS ORDERED: *HR* Dextrose 50 % in Water (Vial) 50 ML VIAL IVP PRN (04:49)
[2020-04-21] MEDS ORDERED: Ondansetron ODT 4 MG TAB.RAPDIS SL PRN (04:49)
[2020-04-21] MEDS ORDERED: D5% in Water 1,000 ML IVC PRN (04:49)
[2020-04-21] MEDS ORDERED: Dextrose Gel 15 GM/37.5 ML TUBE PO PRN ×2 (04:49)
[2020-04-21] MEDS: *HR* Heparin 5,000 UNIT/ML VIAL SQ SCH ×3 (05:55→21:50)
[2020-04-21] MEDS: Insulin LISPRO 300 UNITS/3 ML VIAL SQ SCH ×4 (08:17→21:39)
[2020-04-21] MEDS: Sodium Bicarbonate 75 MEQ in 0.45 % Sodium Chloride 1,000 ML IVC SCH (10:36)
[2020-04-21] MEDS: Nicotine 14 MG PATCH.TD24 TD SCH (10:40)
[2020-04-21] MEDS: Insulin DETEMIR 100 UNIT/ML X5UNITS SQ SCH ×2 (10:42→21:39)
[2020-04-21] MEDS: Metoprolol XL (24 HR) Succ 25 MG TAB.ER.24H PO SCH (10:45)
[2020-04-21] MEDS: Loratadine 10 MG TABLET PO SCH (10:45)
[2020-04-21] MEDS: Pregabalin 75 MG CAPSULE PO SCH ×2 (10:45→21:39)
[2020-04-21] MEDS: TOPIRAMATE 100 MG PO SCH (10:54)
[2020-04-21] MEDS: *HR* OxyCODONE Immed Rel 5 MG TABLET PO PRN (17:04)
[2020-04-21] MEDS: cefTRIAXone 2,000 MG in Water for inj. (sterile) 20 ML IVP SCH (17:05)
[2020-04-22 00:48] LABS: Hematocrit 27.8 % (35.3-44.9); Hemoglobin 8.5 g/dL (11.5-15.4); Mean Corpuscular HGB Conc 30.6 g/dL (31.6-35.5); Mean Corpuscular Hemoglobin 31.3 pg (28.0-33.3); Mean Corpuscular Volume 102.2 fL (83.0-100.0); Mean Platelet Volume 11.1 fL (9.4-12.4); Platelet Count 103 K/mcL (140-400); Red Blood Count 2.72 M/mcL (3.82-4.97); White Blood Count 4.5 K/mcL (4.3-11.1)
[2020-04-22 01:07] LABS: Calcium 8.1 mg/dL (8.6-10.3); Magnesium 1.6 mg/dL (1.6-2.6); Phosphorous 1.6 mg/dL (2.7-4.5); Potassium 3.9 mEq/L (3.5-5.1)
[2020-04-22] MEDS: Sodium Bicarbonate 75 MEQ in 0.45 % Sodium Chloride 1,000 ML IVC SCH (01:16)
[2020-04-22] MEDS: *HR* OxyCODONE Immed Rel 5 MG TABLET PO PRN (01:21)
[2020-04-22 04:33] LABS: Acinetobacter baumannii by PCR Not Detected (Not Detect); Candida albicans by PCR Not Detected (Not Detect); Candida glabrata by PCR Not Detected (Not Detect); Candida krusei by PCR Not Detected (Not Detect); Candida parapsilosis by PCR Not Detected (Not Detect); Candida tropicalis by PCR Not Detected (Not Detect); Enterobacter cloacae Cmplx PCR Not Detected (Not Detect); Enterobacteriaceae by PCR Not Detected (Not Detect); Enterococcus by PCR Not Detected (Not Detect); Escherichia coli by PCR Not Detected (Not Detect); Klebsiella oxytoca by PCR Not Detected (Not Detect); Klebsiella pneumoniae by PCR Not Detected (Not Detect); Proteus by PCR Not Detected (Not Detect); Pseudomonas aeruginosa by PCR Not Detected (Not Detect); Serratia marcescens by PCR Not Detected (Not Detect); Staphylococcus aureus by PCR Not Detected (Not Detect); Staphylococcus by PCR DETECTED (Not Detect); Streptococcus agalactiae(B)PCR Not Detected (Not Detect); Streptococcus by PCR Not Detected (Not Detect); Streptococcus pneumoniae PCR Not Detected (Not Detect); Streptococcus pyogenes (A) PCR Not Detected (Not Detect); mecA Methicillin-Resist Gene Not Detected (Not Detect)
[2020-04-22] MEDS: *HR* Heparin 5,000 UNIT/ML VIAL SQ SCH ×3 (06:32→18:59)
[2020-04-22] MEDS ORDERED: *HR* Insulin Regular U-500 500 UNIT/ML SQ SCH (09:00)
[2020-04-22] MEDS: Nicotine 14 MG PATCH.TD24 TD SCH (09:03)
[2020-04-22] MEDS: Insulin LISPRO 300 UNITS/3 ML VIAL SQ SCH ×4 (09:04→20:22)
[2020-04-22] MEDS: Metoprolol XL (24 HR) Succ 25 MG TAB.ER.24H PO SCH (09:05)
[2020-04-22] MEDS: Pregabalin 75 MG CAPSULE PO SCH ×2 (09:05→20:23)
[2020-04-22] MEDS: Aspirin Enteric Coated 81 MG Tablet PO SCH (09:05)
[2020-04-22] MEDS: Loratadine 10 MG TABLET PO SCH (09:05)
[2020-04-22] MEDS: Insulin DETEMIR 100 UNIT/ML X5UNITS SQ SCH ×2 (09:13→20:22)
[2020-04-22] MEDS: TOPIRAMATE 100 MG PO SCH (09:14)
[2020-04-22] MEDS ORDERED: Vancomycin 1,250 MG/262.5 ML IV.SOLN IVPB SCH (11:00)
[2020-04-22] MEDS: Tiotropium 18 MCG inhalation IH SCH (11:20)
[2020-04-22] MEDS: Magnesium Oxide 400 MG TABLET PO SCH (11:29)
[2020-04-22] MEDS: *HR* Insulin Regular U-500 500 UNIT/ML SQ SCH ×3 (11:30→20:22)
[2020-04-22] MEDS: Topiramate 25 MG TABLET PO SCH ×2 (11:30→20:23)
[2020-04-22] MEDS: Fluticasone Propionate Nasal 50 MCG/SPRAY BOTTLE NS SCH ×2 (11:31→20:22)
[2020-04-22] MEDS: Artificial Tears SOLN 15 ML BOTTLE BOTH EYES SCH ×3 (11:31→20:22)
[2020-04-22] MEDS: cefTRIAXone 2,000 MG in Water for inj. (sterile) 20 ML IVP SCH (18:09)
[2020-04-22] MEDS ORDERED: PROGESTERONE MICRONIZED 200 MG PO SCH (21:00)
[2020-04-23 03:43] LABS: Basophils # 0.1 K/mcL (0.0-0.2); Basophils % 0.8 %; Eosinophils # 0.1 K/mcL (0.0-0.6); Eosinophils % 2.1 %; Hematocrit 28.1 % (35.3-44.9); Hemoglobin 8.6 g/dL (11.5-15.4); Immature Granulocytes % 0.3 % (0-4); Lymphocytes % 33.3 %; Mean Corpuscular HGB Conc 30.6 g/dL (31.6-35.5); Mean Corpuscular Volume 101.4 fL (83.0-100.0); Mean Platelet Volume 11.6 fL (9.4-12.4); Monocytes # 0.4 K/mcL (0.0-1.3); Neutrophils # 3.5 K/mcL (1.6-8.9); Platelet Count 120 K/mcL (140-400); Red Blood Count 2.77 M/mcL (3.82-4.97); Red Cell Distribution Width 15.9 % (11.5-14.5); Segmented Neutrophils % 56.5 %; White Blood Count 6.1 K/mcL (4.3-11.1)
[2020-04-23 04:02] LABS: Calcium 8.5 mg/dL (8.6-10.3); Potassium 3.6 mEq/L (3.5-5.1)
[2020-04-23] MEDS: *HR* Heparin 5,000 UNIT/ML VIAL SQ SCH (05:09)
[2020-04-23 07:25] VITALS: BP 121/64
[2020-04-23] MEDS: Tiotropium 18 MCG inhalation IH SCH (08:06)
[2020-04-23] MEDS: Fluticasone Propionate Nasal 50 MCG/SPRAY BOTTLE NS SCH (08:24)
[2020-04-23] MEDS: Loratadine 10 MG TABLET PO SCH (08:25)
[2020-04-23] MEDS: Aspirin Enteric Coated 81 MG Tablet PO SCH (08:25)
[2020-04-23] MEDS: Metoprolol XL (24 HR) Succ 25 MG TAB.ER.24H PO SCH (08:25)
[2020-04-23] MEDS: Pregabalin 75 MG CAPSULE PO SCH (08:25)
[2020-04-23] MEDS: Topiramate 25 MG TABLET PO SCH (08:25)
[2020-04-23] MEDS: Insulin LISPRO 300 UNITS/3 ML VIAL SQ SCH (08:26)
[2020-04-23] MEDS: Magnesium Oxide 400 MG TABLET PO SCH (08:26)
[2020-04-23] MEDS: Insulin DETEMIR 100 UNIT/ML X5UNITS SQ SCH (08:26)
[2020-04-23] MEDS: TOPIRAMATE 100 MG PO SCH (08:28)
[2020-04-23] MEDS: Artificial Tears SOLN 15 ML BOTTLE BOTH EYES SCH (08:28)
[2020-04-23] MEDS: Nicotine 14 MG PATCH.TD24 TD SCH (08:29)
[2020-04-23] MEDS: *HR* Insulin Regular U-500 500 UNIT/ML SQ SCH (08:39)
[2020-04-23] MEDS ORDERED: Vancomycin 1,250 MG/262.5 ML IV.SOLN IVPB ONE (10:00)
== END 2020-04-23 12:45 | disposition home or self-care (01) | DRG 391 ==
LOC: 3BNU 21:19 → EMEROOARM 21:19 → SUATTDRO 04-21 04:28 → 3BNU 04-21 04:54
PROVIDERS: ADMIT Family Medicine; ATTEND Internal Medicine

== ENCOUNTER 2020-10-09 17:37 | Inpatient (IN) ==
[2020-10-09 18:41] LABS: Basophils % 0.5 %; Immature Granulocytes % 0.8 % (0-4); Mean Corpuscular Hemoglobin 24.7 pg (28.0-33.3); Mean Platelet Volume 11.5 fL (9.4-12.4); Red Blood Count 1.86 M/mcL (3.82-4.97)
[2020-10-09 18:42] LABS: Eosinophils # 0.1 K/mcL (0.0-0.6); Hematocrit 15.8 % (35.3-44.9); Lymphocytes # 1.2 K/mcL (0.6-4.6); Lymphocytes % 18.7 %; Mean Corpuscular HGB Conc 29.1 g/dL (31.6-35.5); Mean Corpuscular Volume 84.9 fL (83.0-100.0); Monocytes # 0.4 K/mcL (0.0-1.3); Platelet Count 118 K/mcL (140-400); Red Cell Distribution Width 18.9 % (11.5-14.5); White Blood Count 6.2 K/mcL (4.3-11.1)
[2020-10-09 19:10] LABS: Neutrophils # 4.5 K/mcL (1.6-8.9)
[2020-10-09 19:11] LABS: Alanine Aminotransferase 23 Units/L (7-52); Albumin 3.3 g/dL (3.5-5.7); Albumin/Globulin Ratio 1.1 (1.1-2.2); Alkaline Phosphatase 107 Units/L (34-104); Aspartate Amino Transferase 24 Units/L (13-39); BUN/Creatinine Ratio 13 (6-26); Bilirubin,Indirect 0.3 mg/dL (0.0-1.0); Bilirubin,Total 0.3 mg/dL (0.3-1.0); Blood Urea Nitrogen 19 mg/dL (8-23); Calcium 8.3 mg/dL (8.6-10.3); Carbon Dioxide 19 mEq/L (23-29); Chloride 108 mEq/L (98-107); Globulin 3.1 g/dL (2.4-3.5); Glucose 295 mg/dL (70-105); Hemoglobin 4.6 g/dL (11.5-15.4); Osmolality,Calculated 293 (280-300); Sodium 135 mEq/L (136-145); Total Protein 6.4 g/dL (6.4-8.9); Troponin I 0.05 ng/mL (< 0.04); eGFR For African Americans 44 (> 60); eGFR For Non-African Americans 36 (> 60)
[2020-10-09] MEDS ORDERED: 0.9 % Sodium Chloride 250 ML ONE ×2 (19:28→21:42)
[2020-10-09 19:30] LABS: Anisocytosis 1+ (Not Present); Hypochromasia Present (Not Present); Microcytosis Present (Not Present); Platelet Estimate Decreased (Normal)
[2020-10-09] MEDS ORDERED: Naloxone 0.4 MG/ML INJ IVP PRN (19:46)
[2020-10-09] MEDS ORDERED: Ondansetron 4 MG/2 ML VIAL IVP PRN (19:46)
[2020-10-09 20:21] LABS: Retculocyte # 0.12 M/mcL (0.05-0.10); Reticulocyte % 6.6 % (1.6-2.8)
[2020-10-09 20:46] LABS: % Iron Saturation 6 % (15-50); Iron 27 mcg/dL (50-170); Transferrin 333 mg/dL (203-362)
[2020-10-09 20:55] LABS: Ferritin < 8 ng/mL (10-120)
[2020-10-09 21:02] LABS: Folate 5.9 ng/mL (3.0-16.0)
[2020-10-10] MEDS ORDERED: D5% in Water 1,000 ML IVC PRN (01:09)
[2020-10-10] MEDS ORDERED: *HR* Dextrose 50 % in Water (Vial) 50 ML VIAL IVP PRN (01:09)
[2020-10-10] MEDS ORDERED: Dextrose Gel 15 GM/37.5 ML TUBE PO PRN ×2 (01:09)
[2020-10-10] MEDS ORDERED: Perflutren Lipid Microsphere 1.3 ML in 0.9 % Sodium Chloride 8.7 ML IVP PRN (01:20)
[2020-10-10] MEDS ORDERED: 0.9 % Sodium Chloride 250 ML ONE ×2 (02:07→05:50)
[2020-10-10 02:14] LABS: Hematocrit 20.5 % (35.3-44.9)
[2020-10-10 02:16] LABS: Basophils % 0.5 %; Eosinophils # 0.1 K/mcL (0.0-0.6); Eosinophils % 2.3 %; Immature Granulocytes % 0.9 % (0-4); Immature Platelets 5.7 % (1.1-6.1); Lymphocytes # 1.3 K/mcL (0.6-4.6); Lymphocytes % 22.5 %; Mean Corpuscular HGB Conc 28.8 g/dL (31.6-35.5); Mean Corpuscular Volume 86.9 fL (83.0-100.0); Mean Platelet Volume 11.8 fL (9.4-12.4); Monocytes # 0.4 K/mcL (0.0-1.3); Monocytes % 6.7 %; Nucleated Red Blood Cells 1.6 /100 WBC (0); Red Blood Count 2.36 M/mcL (3.82-4.97); Red Cell Distribution Width 18.3 % (11.5-14.5); Segmented Neutrophils % 67.1 %; White Blood Count 5.6 K/mcL (4.3-11.1)
[2020-10-10 02:20] LABS: Neutrophils # 3.8 K/mcL (1.6-8.9); Platelet Count 98 K/mcL (140-400)
[2020-10-10 02:23] LABS: Anisocytosis 1+ (Not Present); Hemoglobin 5.9 g/dL (11.5-15.4); Hypochromasia Present (Not Present); Platelet Estimate Decreased (Normal)
[2020-10-10 02:32] LABS: Calcium 7.9 mg/dL (8.6-10.3); Potassium 4.2 mEq/L (3.5-5.1)
[2020-10-10] MEDS: Pantoprazole 40 MG VIAL IVP SCH ×2 (05:35→18:27)
[2020-10-10] MEDS ORDERED: Insulin LISPRO 300 UNITS/3 ML VIAL SUBQ SCH ×2 (06:00→12:00)
[2020-10-10] MEDS ORDERED: Iron Sucrose Complex 400 MG in 0.9 % Sodium Chloride 250 ML IVPB ONE (13:37)
[2020-10-10 15:00] LABS: INR 1.2; Prothrombin Time 14.2 Seconds (9.4-12.1)
[2020-10-10] MEDS ORDERED: SODIUM CHLORIDE/NAHCO3/KCL/PEG 4,000 ML SOLN.RECON PO ONE (17:00)
[2020-10-10 18:10] LABS: Hematocrit 28.8 % (35.3-44.9); Hemoglobin 8.8 g/dL (11.5-15.4)
[2020-10-10] MEDS: Pregabalin 75 MG CAPSULE PO SCH (20:47)
[2020-10-10] MEDS: Insulin LISPRO 300 UNITS/3 ML VIAL SUBQ SCH (20:49)
[2020-10-10] MEDS: Fluticasone Propionate Nasal 50 MCG/SPRAY BOTTLE NS SCH (20:55)
[2020-10-11] MEDS: Pantoprazole 40 MG VIAL IVP SCH ×2 (05:02→17:16)
[2020-10-11 07:48] LABS: Hematocrit 33.9 % (35.3-44.9); Hemoglobin 10.1 g/dL (11.5-15.4); Mean Corpuscular HGB Conc 29.8 g/dL (31.6-35.5); Mean Corpuscular Hemoglobin 26.7 pg (28.0-33.3); Mean Corpuscular Volume 89.7 fL (83.0-100.0); Mean Platelet Volume 12.5 fL (9.4-12.4); Platelet Count 126 K/mcL (140-400); Red Blood Count 3.78 M/mcL (3.82-4.97); Red Cell Distribution Width 17.7 % (11.5-14.5); White Blood Count 6.8 K/mcL (4.3-11.1)
[2020-10-11 08:08] LABS: Calcium 8.7 mg/dL (8.6-10.3); Magnesium 1.8 mg/dL (1.6-2.6); Potassium 3.5 mEq/L (3.5-5.1)
[2020-10-11] MEDS: Pregabalin 75 MG CAPSULE PO SCH ×2 (08:38→20:59)
[2020-10-11] MEDS: Loratadine 10 MG TABLET PO SCH (08:39)
[2020-10-11] MEDS: Insulin LISPRO 300 UNITS/3 ML VIAL SUBQ SCH ×6 (08:39→17:15)
[2020-10-11] MEDS: Fluticasone Propionate Nasal 50 MCG/SPRAY BOTTLE NS SCH ×2 (08:40→21:00)
[2020-10-11] MEDS ORDERED: Lidocaine -MPF 2% 2 ML VIAL ONE (08:46)
[2020-10-11] MEDS ORDERED: *HR* Propofol 200 MG/20 ML VIAL IVP ONE ×2 (12:08→12:29)
[2020-10-11] MEDS ORDERED: Lidocaine -MPF 2% 5 ML VIAL SQ ONE (12:29)
[2020-10-12] MEDS: Insulin LISPRO 300 UNITS/3 ML VIAL SUBQ SCH ×3 (00:56→08:15)
[2020-10-12 03:11] LABS: Mean Corpuscular Volume 88.4 fL (83.0-100.0)
[2020-10-12 03:12] LABS: Hematocrit 26.7 % (35.3-44.9); Immature Platelets 6.2 % (1.1-6.1); Mean Corpuscular Hemoglobin 26.5 pg (28.0-33.3); Mean Platelet Volume 11.9 fL (9.4-12.4); Red Blood Count 3.02 M/mcL (3.82-4.97); Red Cell Distribution Width 18.3 % (11.5-14.5); White Blood Count 6.8 K/mcL (4.3-11.1)
[2020-10-12 03:26] LABS: Calcium 7.9 mg/dL (8.6-10.3); Magnesium 1.7 mg/dL (1.6-2.6); Potassium 3.8 mEq/L (3.5-5.1)
[2020-10-12] MEDS: Pantoprazole 40 MG VIAL IVP SCH (05:35)
[2020-10-12 07:04] VITALS: BP 163/82
[2020-10-12] MEDS ORDERED: Iron Sucrose Complex 200 MG in 0.9 % Sodium Chloride 100 ML IVPB ONE (07:40)
[2020-10-12] MEDS: Fluticasone Propionate Nasal 50 MCG/SPRAY BOTTLE NS SCH (08:13)
[2020-10-12] MEDS: Pregabalin 75 MG CAPSULE PO SCH (08:17)
[2020-10-12] MEDS: Loratadine 10 MG TABLET PO SCH (08:18)
[2020-10-12 09:34] LABS: Hematocrit 28.6 % (35.3-44.9); Hemoglobin 8.5 g/dL (11.5-15.4)
== END 2020-10-12 12:30 | disposition home or self-care (01) | DRG 811 ==
LOC: EMEROOARM 17:37 → 2ANU 17:37 → SUATTDRO 20:02 → 2ANU 20:43
PROVIDERS: ADMIT Student in an Organized Health Care Education/Training Program; ATTEND Internal Medicine

== ENCOUNTER 2021-04-20 21:00 | Inpatient (IN) ==
[2021-04-20 21:54] LABS: Immature Granulocytes % 0.4 % (0-4); Mean Platelet Volume 11.3 fL (9.4-12.4)
[2021-04-20 21:55] LABS: Basophils # 0.1 K/mcL (0.0-0.2); Eosinophils # 0.2 K/mcL (0.0-0.6); Hematocrit 21.3 % (35.3-44.9); Lymphocytes # 1.1 K/mcL (0.6-4.6); Lymphocytes % 21.6 %; Mean Corpuscular HGB Conc 27.7 g/dL (31.6-35.5); Mean Corpuscular Hemoglobin 26.9 pg (28.0-33.3); Mean Corpuscular Volume 97.3 fL (83.0-100.0); Monocytes # 0.4 K/mcL (0.0-1.3); Monocytes % 7.5 %; Neutrophils # 3.4 K/mcL (1.6-8.9); Platelet Count 112 K/mcL (140-400); Red Blood Count 2.19 M/mcL (3.82-4.97); Red Cell Distribution Width 17.2 % (11.5-14.5); Segmented Neutrophils % 66.5 %; White Blood Count 5.1 K/mcL (4.3-11.1)
[2021-04-20 21:57] LABS: INR 1.2; Prothrombin Time 12.9 Seconds (9.4-12.1)
[2021-04-20 21:59] LABS: Activated Partial Thrombo Time 31.3 Seconds (26.0-36.0); Hemoglobin 5.9 g/dL (11.5-15.4)
[2021-04-20 22:30] LABS: Anisocytosis 1+ (Not Present); Hypochromasia Present (Not Present); Microcytosis Present (Not Present); Polychromasia 1+ (Not Present)
[2021-04-20 22:31] LABS: Platelet Estimate Slight Decrease (Normal)
[2021-04-20 22:34] LABS: Alanine Aminotransferase 26 Units/L (7-52); Albumin 3.4 g/dL (3.5-5.7); Albumin/Globulin Ratio 1.2 (1.1-2.2); Alkaline Phosphatase 141 Units/L (34-104); Aspartate Amino Transferase 21 Units/L (13-39); BUN/Creatinine Ratio 19 (6-26); Bilirubin,Indirect 0.3 mg/dL (0.0-1.0); Bilirubin,Total 0.3 mg/dL (0.3-1.0); Blood Urea Nitrogen 31 mg/dL (8-23); Calcium 8.2 mg/dL (8.6-10.3); Carbon Dioxide 21 mEq/L (23-29); Chloride 108 mEq/L (98-107); Globulin 2.9 g/dL (2.4-3.5); Glucose 331 mg/dL (70-105); Magnesium 1.9 mg/dL (1.6-2.6); Osmolality,Calculated 297 (280-300); Sodium 134 mEq/L (136-145); Total Protein 6.3 g/dL (6.4-8.9); Troponin I < 0.03 ng/mL (< 0.04); eGFR For African Americans 38 (> 60); eGFR For Non-African Americans 32 (> 60)
[2021-04-20] MEDS ORDERED: 0.9 % Sodium Chloride 1,000 ML IVC ONE (22:37)
[2021-04-20] MEDS ORDERED: cefTRIAXone 1,000 MG in Water for inj. (sterile) 10 ML IVP ONE (22:40)
[2021-04-20] MEDS ORDERED: Pantoprazole 40 MG VIAL IVP STA (22:40)
[2021-04-20] MEDS ORDERED: Octreotide 50 MCG/ML INJ IVP ONE (22:40)
[2021-04-20] MEDS: Octreotide 400 MCG in 0.9 % Sodium Chloride 100 ML IVC SCH (23:23)
[2021-04-20] MEDS ORDERED: 0.9 % Sodium Chloride 250 ML ONE (23:27)
[2021-04-21] MEDS ORDERED: Naloxone 0.4 MG/ML INJ IVP PRN (02:02)
[2021-04-21] MEDS ORDERED: Ondansetron 4 MG/2 ML VIAL IVP PRN (02:02)
[2021-04-21] MEDS ORDERED: Dextrose Gel 15 GM/37.5 ML TUBE PO PRN ×3 (02:09→18:17)
[2021-04-21] MEDS ORDERED: D5% in Water 1,000 ML IVC PRN ×2 (02:09→18:17)
[2021-04-21] MEDS ORDERED: *HR* Dextrose 50 % in Water (Syg) 50 ML SYRINGE IVP PRN ×2 (02:09→18:17)
[2021-04-21] MEDS: Pantoprazole 40 MG VIAL IVP SCH ×2 (05:37→18:45)
[2021-04-21 05:51] LABS: Hemoglobin 7.2 g/dL (11.5-15.4); Mean Corpuscular Hemoglobin 28.2 pg (28.0-33.3); Mean Corpuscular Volume 94.1 fL (83.0-100.0); Mean Platelet Volume 11.4 fL (9.4-12.4); Platelet Count 101 K/mcL (140-400); Red Blood Count 2.55 M/mcL (3.82-4.97); Red Cell Distribution Width 16.3 % (11.5-14.5); White Blood Count 4.3 K/mcL (4.3-11.1)
[2021-04-21 05:56] LABS: INR 1.2; Prothrombin Time 13.1 Seconds (9.4-12.1)
[2021-04-21 06:15] LABS: % Iron Saturation 6 % (15-50); Alanine Aminotransferase 24 Units/L (7-52); Albumin 3.3 g/dL (3.5-5.7); Albumin/Globulin Ratio 1.1 (1.1-2.2); Alkaline Phosphatase 139 Units/L (34-104); Aspartate Amino Transferase 20 Units/L (13-39); BUN/Creatinine Ratio 20 (6-26); Bilirubin,Total 0.4 mg/dL (0.3-1.0); Blood Urea Nitrogen 27 mg/dL (8-23); Calcium 8.2 mg/dL (8.6-10.3); Carbon Dioxide 19 mEq/L (23-29); Chloride 113 mEq/L (98-107); Globulin 2.9 g/dL (2.4-3.5); Glucose 74 mg/dL (70-105); Iron 26 mcg/dL (50-170); Osmolality,Calculated 292 (280-300); Phosphorous 2.6 mg/dL (2.7-4.5); Potassium 4.1 mEq/L (3.5-5.1); Sodium 139 mEq/L (136-145); Total Protein 6.2 g/dL (6.4-8.9); Transferrin 297 mg/dL (203-362); Troponin I < 0.03 ng/mL (< 0.04); eGFR For African Americans 46 (> 60); eGFR For Non-African Americans 38 (> 60)
[2021-04-21] MEDS: Insulin LISPRO 300 UNITS/3 ML VIAL SUBQ SCH ×4 (06:19→18:58)
[2021-04-21 06:22] LABS: Ferritin 24 ng/mL (10-120)
[2021-04-21] MEDS: Octreotide 400 MCG in 0.9 % Sodium Chloride 100 ML IVC SCH ×2 (08:07→18:46)
[2021-04-21 12:05] LABS: Hematocrit 24.4 % (35.3-44.9); Hemoglobin 7.1 g/dL (11.5-15.4); Mean Corpuscular HGB Conc 29.1 g/dL (31.6-35.5); Mean Corpuscular Hemoglobin 27.7 pg (28.0-33.3); Mean Corpuscular Volume 95.3 fL (83.0-100.0); Red Blood Count 2.56 M/mcL (3.82-4.97)
[2021-04-21 12:06] LABS: Immature Platelets 4.3 % (1.1-6.1); Mean Platelet Volume 11.8 fL (9.4-12.4); Red Cell Distribution Width 16.5 % (11.5-14.5); White Blood Count 4.4 K/mcL (4.3-11.1)
[2021-04-21] MEDS ORDERED: Cyanocobalamin (B-12) 1,000 MCG/ML VIAL SQ SCH (13:00)
[2021-04-21] MEDS ORDERED: Insulin LISPRO 300 UNITS/3 ML VIAL SUBQ SCH (18:30)
[2021-04-21 18:32] LABS: Hematocrit 28.8 % (35.3-44.9); Mean Corpuscular HGB Conc 27.8 g/dL (31.6-35.5); Mean Corpuscular Hemoglobin 27.7 pg (28.0-33.3); Mean Corpuscular Volume 99.7 fL (83.0-100.0); Mean Platelet Volume 12.1 fL (9.4-12.4); Red Blood Count 2.89 M/mcL (3.82-4.97); Red Cell Distribution Width 16.8 % (11.5-14.5); White Blood Count 4.5 K/mcL (4.3-11.1)
[2021-04-21 18:33] LABS: Platelet Count 99 K/mcL (140-400)
[2021-04-22] MEDS: Octreotide 400 MCG in 0.9 % Sodium Chloride 100 ML IVC SCH ×2 (03:01→14:12)
[2021-04-22 05:06] LABS: Hematocrit 25.7 % (35.3-44.9); Hemoglobin 7.6 g/dL (11.5-15.4); Mean Corpuscular HGB Conc 29.6 g/dL (31.6-35.5); Mean Corpuscular Hemoglobin 27.3 pg (28.0-33.3); Platelet Count 101 K/mcL (140-400); Red Blood Count 2.78 M/mcL (3.82-4.97); Red Cell Distribution Width 16.4 % (11.5-14.5); White Blood Count 3.7 K/mcL (4.3-11.1)
[2021-04-22 05:09] LABS: Mean Corpuscular Volume 92.4 fL (83.0-100.0)
[2021-04-22] MEDS: Pantoprazole 40 MG VIAL IVP SCH ×2 (05:27→18:13)
[2021-04-22] MEDS ORDERED: Lactulose Oral Soln 20 GM/30 ML UDC PO PRN (09:07)
[2021-04-22] MEDS: Insulin LISPRO 300 UNITS/3 ML VIAL SUBQ SCH ×3 (09:27→18:12)
[2021-04-22] MEDS ORDERED: Albuterol 2.5 MG/3 ML NEBULIZER IH PRN (09:27)
[2021-04-22] MEDS ORDERED: Lidocaine -MPF 2% 5 ML VIAL ONE (09:52)
[2021-04-22] MEDS ORDERED: *HR* Propofol 200 MG/20 ML VIAL IVP ONE (10:32)
[2021-04-22] MEDS: Tiotropium 10 INH DOSE IH SCH (11:32)
[2021-04-22] MEDS: Pregabalin 75 MG CAPSULE PO SCH (20:21)
[2021-04-22] MEDS: Topiramate 25 MG TABLET PO SCH (20:21)
[2021-04-22] MEDS ORDERED: Insulin DETEMIR 100 UNIT/ML X5UNITS SUBQ SCH (21:00)
[2021-04-23 05:12] LABS: Basophils % 0.8 %; Eosinophils # 0.1 K/mcL (0.0-0.6); Eosinophils % 3.7 %; Hemoglobin 7.3 g/dL (11.5-15.4); Immature Granulocytes % 0.5 % (0-4); Lymphocytes % 27.7 %; Mean Corpuscular HGB Conc 29.2 g/dL (31.6-35.5); Mean Corpuscular Hemoglobin 27.1 pg (28.0-33.3); Mean Corpuscular Volume 92.9 fL (83.0-100.0); Mean Platelet Volume 11.1 fL (9.4-12.4); Monocytes # 0.3 K/mcL (0.0-1.3); Monocytes % 7.4 %; Neutrophils # 2.3 K/mcL (1.6-8.9); Platelet Count 101 K/mcL (140-400); Red Blood Count 2.69 M/mcL (3.82-4.97); Red Cell Distribution Width 16.7 % (11.5-14.5); Segmented Neutrophils % 59.9 %; White Blood Count 3.8 K/mcL (4.3-11.1)
[2021-04-23] MEDS: Pantoprazole 40 MG VIAL IVP SCH (05:32)
[2021-04-23 05:33] LABS: Calcium 8.2 mg/dL (8.6-10.3); Magnesium 1.7 mg/dL (1.6-2.6); Phosphorous 1.7 mg/dL (2.7-4.5); Potassium 3.9 mEq/L (3.5-5.1)
[2021-04-23 06:54] VITALS: BP 134/61; PULSE 76; TEMP 98; O2SAT 98
[2021-04-23] MEDS: Tiotropium 10 INH DOSE IH SCH (08:08)
[2021-04-23] MEDS: Insulin LISPRO 300 UNITS/3 ML VIAL SUBQ SCH (08:50)
[2021-04-23] MEDS: Topiramate 25 MG TABLET PO SCH (08:51)
[2021-04-23] MEDS: Pregabalin 75 MG CAPSULE PO SCH (08:51)
[2021-04-23] MEDS ORDERED: Cyanocobalamin (B-12) 1,000 MCG TABLET PO SCH (09:00)
[2021-04-23] MEDS ORDERED: Cholecalciferol (D-3) 1,000 UNIT (25MCG) TABLET PO SCH (09:00)
[2021-04-23] MEDS ORDERED: NON-FORMULARY MEDICATION 1 EACH EACH (Biotin 1 MG Tablet) PO SCH (09:00)
[2021-04-23] MEDS ORDERED: Metoprolol XL (24 HR) Succ 25 MG TAB.ER.24H PO SCH (09:00)
[2021-04-23] MEDS ORDERED: Folic Acid 1 MG TABLET PO SCH (09:00)
[2021-04-23] MEDS ORDERED: GuaiFENesin Liq 200 MG/10 ML UDC PO SCH (09:00)
== END 2021-04-23 11:55 | disposition home health service (06) | DRG 812 ==
LOC: EMEROOARM 21:00 → 3ANU 21:00
PROVIDERS: ADMIT Internal Medicine; ATTEND Internal Medicine

== ENCOUNTER 2021-04-28 18:00 | Observation (INO) ==
[2021-04-28] MEDS ORDERED: 0.9 % Sodium Chloride 1,000 ML ONE (18:23)
[2021-04-28 19:03] LABS: Mean Corpuscular HGB Conc 29.8 g/dL (31.6-35.5)
[2021-04-28 19:09] LABS: Basophils % 0.5 %; Hematocrit 28.9 % (35.3-44.9); Hemoglobin 8.6 g/dL (11.5-15.4); Immature Granulocytes % 0.5 % (0-4); Immature Platelets 6.3 % (1.1-6.1); Lymphocytes # 1.2 K/mcL (0.6-4.6); Lymphocytes % 15.8 %; Mean Corpuscular Hemoglobin 28.6 pg (28.0-33.3); Mean Platelet Volume 12.9 fL (9.4-12.4); Monocytes # 0.7 K/mcL (0.0-1.3); Monocytes % 9.5 %; Neutrophils # 5.4 K/mcL (1.6-8.9); Nucleated Red Blood Cells 0.4 /100 WBC (0); Red Blood Count 3.01 M/mcL (3.82-4.97); Segmented Neutrophils % 73.7 %; White Blood Count 7.3 K/mcL (4.3-11.1)
[2021-04-28 19:10] LABS: Platelet Count 97 K/mcL (140-400)
[2021-04-28 19:22] LABS: Alanine Aminotransferase 52 Units/L (7-52); Albumin 2.9 g/dL (3.5-5.7); Alkaline Phosphatase 126 Units/L (34-104); Aspartate Amino Transferase 34 Units/L (13-39); BUN/Creatinine Ratio 14 (6-26); Bilirubin,Total 0.4 mg/dL (0.3-1.0); Blood Urea Nitrogen 26 mg/dL (8-23); Calcium 7.2 mg/dL (8.6-10.3); Carbon Dioxide 15 mEq/L (23-29); Chloride 109 mEq/L (98-107); Globulin 2.8 g/dL (2.4-3.5); Glucose 377 mg/dL (70-105); Osmolality,Calculated 292 (280-300); Potassium 4.8 mEq/L (3.5-5.1); Sodium 131 mEq/L (136-145); Total Protein 5.7 g/dL (6.4-8.9); eGFR For African Americans 33 (> 60); eGFR For Non-African Americans 27 (> 60)
[2021-04-28 19:23] LABS: Troponin I < 0.03 ng/mL (< 0.04)
[2021-04-28] MEDS ORDERED: 0.9 % Sodium Chloride 1,000 ML IV ONE ×2 (20:30→20:32)
[2021-04-28 21:00] LABS: VBG HCO3 15 mEq/L (21-27); VBG PCO2 24 mmHg (41-51); VBG PH 7.39 pH Units (7.32-7.42); VBG PO2 163 mmHg (25-50)
[2021-04-28 21:40] LABS: Bacteria,Urine Few per hpf (None-Few); Bilirubin,Urine Negative (Negative); Blood,Urine Negative (Negative); Clarity,Urine Clear (Clear); Color,Urine Yellow (Yellow); Glucose,Urine (UA) >=1000 mg/dL (Normal); Hyaline Casts,Urine Moderate per lpf (None Seen); Ketones,Urine Negative (Negative); Leukocyte Esterase,Urine Negative (Negative); Mucus,Urine Few per lpf (None-Few); Nitrite,Urine Negative (Negative); PH,Urine 5.5 pH Units (5.0-8.0); Protein,Urine 30 mg/dL (Neg-Trace); RBC,Urine 0-3 per hpf (0-3); Specific Gravity,Urine 1.022 (1.010-1.025); Squamous Epithelial Cell,Urine Few per hpf (None-Few); WBC,Urine 0-3 per hpf (0-3)
[2021-04-28 21:46] LABS: Amphetamine Screen,Urine Negative ng/mL (Cutoff=1000); Barbiturate Screen,Urine Negative ng/mL (Cutoff=200); Benzodiazepines Screen,Urine Negative ng/mL (Cutoff=200); Cannabinoid Screen,Urine Negative ng/mL (Cutoff = 50); Cocaine Screen,Urine Negative ng/mL (Cutoff= 300); Opiate Screen,Urine Positive ng/mL (Cutoff=300); Phencyclidine Screen,Urine Negative ng/mL (Cutoff=25)
[2021-04-28] MEDS ORDERED: Naloxone 0.4 MG/ML INJ IVP ONE (21:54)
[2021-04-28] MEDS ORDERED: NALOXONE IVC SCH (23:00)
[2021-04-28] MEDS ORDERED: SODIUM CHLORIDE 0.9% IVC SCH (23:00)
[2021-04-28] MEDS ORDERED: Albumin Human 5% 12.5 GM/250 ML IV.SOLN IVPB ONE (23:10)
[2021-04-29 00:24] LABS: Acetaminophen < 10 mcg/mL (10-20); Ethanol < 10 mg/dL (Less than 10); Salicylate < 2.5 mg/dL (15.0-30.0)
[2021-04-29] MEDS ORDERED: Melatonin 3 MG TABLET PO PRN (01:21)
[2021-04-29] MEDS ORDERED: Acetaminophen 325 MG TABLET PO PRN (01:21)
[2021-04-29] MEDS ORDERED: Naloxone 0.4 MG/ML INJ IVP PRN (01:21)
[2021-04-29] MEDS ORDERED: Ondansetron 4 MG/2 ML VIAL IVP PRN (01:21)
[2021-04-29] MEDS ORDERED: D5% in Water 1,000 ML IVC PRN (02:35)
[2021-04-29] MEDS ORDERED: *HR* Dextrose 50 % in Water (Syg) 50 ML SYRINGE IVP PRN (02:35)
[2021-04-29] MEDS ORDERED: Dextrose Gel 15 GM/37.5 ML TUBE PO PRN ×2 (02:35)
[2021-04-29] MEDS ORDERED: Fluticasone Propionate Nasal 50 MCG/SPRAY BOTTLE NS PRN (03:41)
[2021-04-29 03:42] LABS: Calcium 6.9 mg/dL (8.6-10.3); Potassium 4.2 mEq/L (3.5-5.1)
[2021-04-29 03:49] LABS: Immature Granulocytes % 0.6 % (0-4); Nucleated Red Blood Cells 0.4 /100 WBC (0); Red Cell Distribution Width 18.1 % (11.5-14.5)
[2021-04-29 03:51] LABS: Basophils % 0.4 %; Eosinophils # 0.1 K/mcL (0.0-0.6); Eosinophils % 0.9 %; Hematocrit 27.8 % (35.3-44.9); Hemoglobin 7.8 g/dL (11.5-15.4); Immature Platelets 6.2 % (1.1-6.1); Lymphocytes # 1.1 K/mcL (0.6-4.6); Lymphocytes % 21.2 %; Mean Corpuscular HGB Conc 28.1 g/dL (31.6-35.5); Mean Corpuscular Volume 99.6 fL (83.0-100.0); Mean Platelet Volume 12.8 fL (9.4-12.4); Monocytes # 0.5 K/mcL (0.0-1.3); Monocytes % 9.7 %; Neutrophils # 3.6 K/mcL (1.6-8.9); Red Blood Count 2.79 M/mcL (3.82-4.97); Segmented Neutrophils % 67.2 %; White Blood Count 5.3 K/mcL (4.3-11.1)
[2021-04-29] MEDS: Insulin LISPRO 300 UNITS/3 ML VIAL SUBQ SCH ×5 (05:11→16:46)
[2021-04-29] MEDS: *HR* Enoxaparin 40 MG/0.4 ML SYRINGE SQ SCH (05:12)
[2021-04-29] MEDS ORDERED: 0.9 % Sodium Chloride 1,000 ML IVC SCH (05:15)
[2021-04-29 05:46] LABS: Platelet Count 72 K/mcL (140-400)
[2021-04-29 05:47] LABS: Hypochromasia Present (Not Present); Platelet Estimate Decreased (Normal)
[2021-04-29] MEDS ORDERED: Sodium Bicarbonate 75 MEQ in D5% in Water 1,000 ML IVC SCH ×2 (06:30→10:30)
[2021-04-29 06:38] LABS: Thyroid Stimulating Hormone 0.35 mcIU/mL (0.340-5.600)
[2021-04-29] MEDS ORDERED: Calcium Gluconate 1gm/50mL 1 GM/50 ML BAG IVPB ONE (06:44)
[2021-04-29] MEDS: Pregabalin 75 MG CAPSULE PO SCH ×2 (08:56→20:58)
[2021-04-29] MEDS: Cholecalciferol (D-3) 1,000 UNIT (25MCG) TABLET PO SCH (08:56)
[2021-04-29] MEDS: Topiramate 25 MG TABLET PO SCH ×2 (08:56→20:59)
[2021-04-29] MEDS: Loratadine 10 MG TABLET PO SCH (08:57)
[2021-04-29] MEDS: Aspirin Enteric Coated 81 MG Tablet PO SCH (08:57)
[2021-04-29] MEDS: Folic Acid 1 MG TABLET PO SCH (08:57)
[2021-04-29] MEDS: Cyanocobalamin (B-12) 1,000 MCG TABLET PO SCH (08:57)
[2021-04-29] MEDS: GuaiFENesin Liq 200 MG/10 ML UDC PO SCH ×2 (08:58→09:15)
[2021-04-29] MEDS: BIOTIN 1 MG PO SCH (08:58)
[2021-04-29] MEDS ORDERED: Insulin DETEMIR 100 UNIT/ML X5UNITS SUBQ SCH (21:00)
[2021-04-30] MEDS: *HR* Enoxaparin 40 MG/0.4 ML SYRINGE SQ SCH (05:23)
[2021-04-30 07:59] VITALS: O2SAT 96
[2021-04-30] MEDS: Pregabalin 75 MG CAPSULE PO SCH (08:15)
[2021-04-30] MEDS: Loratadine 10 MG TABLET PO SCH (08:16)
[2021-04-30] MEDS: Cholecalciferol (D-3) 1,000 UNIT (25MCG) TABLET PO SCH (08:16)
[2021-04-30] MEDS: Topiramate 25 MG TABLET PO SCH (08:16)
[2021-04-30] MEDS: Aspirin Enteric Coated 81 MG Tablet PO SCH (08:16)
[2021-04-30] MEDS: Cyanocobalamin (B-12) 1,000 MCG TABLET PO SCH (08:16)
[2021-04-30] MEDS: Insulin LISPRO 300 UNITS/3 ML VIAL SUBQ SCH ×4 (08:16→12:40)
[2021-04-30] MEDS: Folic Acid 1 MG TABLET PO SCH (08:16)
[2021-04-30] MEDS: BIOTIN 1 MG PO SCH (08:17)
[2021-04-30] MEDS: GuaiFENesin Liq 200 MG/10 ML UDC PO SCH (08:17)
[2021-04-30 08:45] LABS: Hematocrit 32.1 % (35.3-44.9); Hemoglobin 9.3 g/dL (11.5-15.4)
[2021-04-30] MEDS ORDERED: Insulin DETEMIR 100 UNIT/ML X5UNITS SUBQ SCH (09:00)
[2021-04-30] MEDS ORDERED: levoFLOXacin 750 MG TABLET PO SCH (09:00)
[2021-04-30] MEDS ORDERED: Metoprolol XL (24 HR) Succ 25 MG TAB.ER.24H PO SCH (09:00)
[2021-04-30 12:03] VITALS: BP 144/66; PULSE 106; TEMP 99.3
[2021-05-02] MEDS ORDERED: levoFLOXacin 750 MG TABLET PO SCH (09:00)
== END 2021-04-30 16:57 | disposition home health service (06) ==
LOC: 3NENU 18:00 → EMEROOARM 18:00 → SUATTDRO 23:31 → 3NENU 04-29 01:10
PROVIDERS: ADMIT Internal Medicine; ATTEND Internal Medicine

== ENCOUNTER 2021-05-11 15:57 | Inpatient (IN) ==
[2021-05-11] MEDS ORDERED: Furosemide 40 MG/4 ML VIAL IVP ONE (16:26)
[2021-05-11] MEDS ORDERED: 0.9 % Sodium Chloride 1,000 ML IVC ONE ×2 (16:26→19:00)
[2021-05-11] MEDS ORDERED: Azithromycin 250 MG TABLET PO ONE (16:26)
[2021-05-11] MEDS ORDERED: Albuterol 2.5 MG/3 ML NEBULIZER IH ONE (16:26)
[2021-05-11] MEDS ORDERED: cefTRIAXone 1,000 MG in Water for inj. (sterile) 10 ML IVP ONE (16:26)
[2021-05-11] MEDS ORDERED: *HR* LORazepam 2 MG/ML VIAL IVP ONE (16:31)
[2021-05-11 16:42] LABS: Basophils % 0.2 %; Monocytes % 8.1 %; Nucleated Red Blood Cells 0.2 /100 WBC (0); Red Cell Distribution Width 18.4 % (11.5-14.5)
[2021-05-11 16:44] LABS: Basophils # 0.1 K/mcL (0.0-0.2); Hematocrit 33.1 % (35.3-44.9); Immature Granulocytes % 1.6 % (0-4); Lymphocytes # 0.4 K/mcL (0.6-4.6); Lymphocytes % 1.6 %; Mean Corpuscular HGB Conc 27.2 g/dL (31.6-35.5); Mean Corpuscular Volume 99.4 fL (83.0-100.0); Mean Platelet Volume 11.5 fL (9.4-12.4); Monocytes # 1.8 K/mcL (0.0-1.3); Platelet Count 453 K/mcL (140-400); Red Blood Count 3.33 M/mcL (3.82-4.97); Segmented Neutrophils % 88.5 %; White Blood Count 22.6 K/mcL (4.3-11.1)
[2021-05-11 16:57] LABS: INR 1.4; Prothrombin Time 15.9 Seconds (9.4-12.1)
[2021-05-11 17:13] LABS: Calcium 9.1 mg/dL (8.6-10.3); Potassium 6.1 mEq/L (3.5-5.1); Troponin I 0.05 ng/mL (< 0.04)
[2021-05-11] MEDS ORDERED: Albuterol 2.5 MG/3 ML NEBULIZER ONE (17:19)
[2021-05-11 17:27] LABS: Platelet Clumps Few (Not Present); Platelet Estimate Increased (Normal); Toxic Granulation Present (Not Present)
[2021-05-11] MEDS ORDERED: Dexmedetomidine HCl 400 MCG/100 ML MLS IVC ONE (17:29)
[2021-05-11] MEDS: Dexmedetomidine HCl 400 MCG/100 ML MLS IVC SCH (17:35)
[2021-05-11] MEDS: Aspirin 81 MG TAB.CHEW PO SCH (17:38)
[2021-05-11 18:34] LABS: VBG HCO3 5 mEq/L (21-27); VBG PCO2 29 mmHg (41-51); VBG PH 6.84 pH Units (7.32-7.42); VBG PO2 92 mmHg (25-50)
[2021-05-11] MEDS ORDERED: Insulin Human Regular 10 UNIT in 0.9 % Sodium Chloride 10 ML IV ONE (18:37)
[2021-05-11 18:43] LABS: Bilirubin,Urine Negative (Negative); Blood,Urine Moderate (Negative); Budding Yeast,Urine Many per hpf (None Seen); Clarity,Urine Turbid (Clear); Color,Urine Light-Yellow (Yellow); Glucose,Urine (UA) >=1000 mg/dL (Normal); Ketones,Urine 80 mg/dL (Negative); Leukocyte Esterase,Urine Negative (Negative); Mucus,Urine Few per lpf (None-Few); Nitrite,Urine Negative (Negative); PH,Urine 5.5 pH Units (5.0-8.0); Protein,Urine 100 mg/dL (Neg-Trace); RBC,Urine 15-30 per hpf (0-3); Urobilinogen,Urine Normal (Normal)
[2021-05-11] MEDS ORDERED: Azithromycin 500 MG in 0.9 % Sodium Chloride 250 ML IVPB ONE (19:22)
[2021-05-11] MEDS ORDERED: Ondansetron 4 MG/2 ML VIAL IVP PRN (20:19)
[2021-05-11] MEDS ORDERED: Naloxone 0.4 MG/ML INJ IVP PRN (20:19)
[2021-05-11] MEDS ORDERED: Insulin Regular, Human 100 UNIT/ML IV PRN (20:20)
[2021-05-11] MEDS ORDERED: *HR* Dextrose 50 % in Water (Syg) 50 ML SYRINGE IVP PRN (20:20)
[2021-05-11] MEDS ORDERED: D5% in 0.45% NACL 1,000 ML IVC PRN (20:20)
[2021-05-11 20:54] LABS: Calcium 8.2 mg/dL (8.6-10.3)
[2021-05-11] MEDS ORDERED: 0.9 % Sodium Chloride 1,000 ML IVC SCH (21:00)
[2021-05-11 21:13] LABS: ABG Base Excess -14 mEq/L (-2 to 3); ABG HCO3 12 mEq/L (21-27); ABG Oxygen Saturation 97 % (95-98); ABG PCO2 26 mmHg (35-45); ABG PH 7.26 pH Units (7.32-7.45); ABG PO2 105 mmHg (85-104); ABG TCO2 13 mEq/L (20-26)
[2021-05-11] MEDS ORDERED: Vancomycin 1,250 MG/262.5 ML IV.SOLN IVPB ONE (22:00)
[2021-05-11 22:01] LABS: Adenovirus Not Detected (Not Detect); Bordetella Pertussis Not Detected (Not Detect); Chlamydophila pneumoniae Not Detected (Not Detect); Coronavirus 229E Not Detected (Not Detect); Coronavirus HKU1 Not Detected (Not Detect); Coronavirus NL63 Not Detected (Not Detect); Coronavirus OC43 Not Detected (Not Detect); Human Metapneumovirus Not Detected (Not Detect); Human Rhinovirus/Enterovirus Not Detected (Not Detect); Influenza A Subtype 2009 H1 Not Detected (Not Detect); Influenza B Not Detected (Not Detect); Mycoplasma pneumoniae Not Detected (Not Detect); Parainfluenza Virus 1 Not Detected (Not Detect); Parainfluenza Virus 2 Not Detected (Not Detect); Parainfluenza Virus 3 Not Detected (Not Detect); Parainfluenza Virus 4 Not Detected (Not Detect); Respiratory Syncytial Virus Not Detected (Not Detect); SARS-CoV-2 Not Detected (Not Detect)
[2021-05-11] MEDS ORDERED: Calcium Gluconate 1gm/50mL 1 GM/50 ML BAG IVPB ONE (23:13)
[2021-05-11 23:21] LABS: VBG HCO3 11 mEq/L (21-27); VBG PCO2 25 mmHg (41-51); VBG PH 7.25 pH Units (7.32-7.42); VBG PO2 134 mmHg (25-50)
[2021-05-11] MEDS: Ipratropium 1 PUFF INHALER IH SCH (23:29)
[2021-05-11 23:30] LABS: Troponin I 0.06 ng/mL (< 0.04)
[2021-05-12] MEDS: Piperacillin/Tazobactam 3.375 GM in 0.9 % Sodium Chloride Mini Bag 100 ML IVPB SCH ×3 (00:07→15:12)
[2021-05-12 01:43] LABS: Calcium 7.4 mg/dL (8.6-10.3); Potassium 3.8 mEq/L (3.5-5.1)
[2021-05-12] MEDS: D5% in 0.45% NACL w KCl 20 MEQ/1,000 ML MLS IVC PRN ×5 (02:02→20:05)
[2021-05-12] MEDS: *HR* Enoxaparin 80 MG/0.8 ML SYRINGE SQ SCH (02:02)
[2021-05-12] MEDS: Dexmedetomidine HCl 400 MCG/100 ML MLS IVC SCH ×2 (03:00→20:50)
[2021-05-12] MEDS: Ipratropium 1 PUFF INHALER IH SCH ×6 (03:14→23:50)
[2021-05-12 03:53] LABS: Red Cell Distribution Width 17.8 % (11.5-14.5)
[2021-05-12 03:55] LABS: Hemoglobin 7.6 g/dL (11.5-15.4); Mean Corpuscular HGB Conc 28.1 g/dL (31.6-35.5); Mean Corpuscular Hemoglobin 26.6 pg (28.0-33.3); Mean Corpuscular Volume 94.4 fL (83.0-100.0); Mean Platelet Volume 10.8 fL (9.4-12.4); Platelet Count 167 K/mcL (140-400); Red Blood Count 2.86 M/mcL (3.82-4.97); White Blood Count 8.2 K/mcL (4.3-11.1)
[2021-05-12 04:05] LABS: VBG HCO3 16 mEq/L (21-27); VBG PCO2 29 mmHg (41-51); VBG PH 7.34 pH Units (7.32-7.42); VBG PO2 116 mmHg (25-50)
[2021-05-12 04:12] LABS: C-Reactive Protein 89 mg/L (Less than 10); Lactate Dehydrogenase 257 Units/L (140-271)
[2021-05-12 04:13] LABS: Calcium 8.2 mg/dL (8.6-10.3); Potassium 3.2 mEq/L (3.5-5.1)
[2021-05-12 06:09] LABS: VBG HCO3 17 mEq/L (21-27); VBG PCO2 31 mmHg (41-51); VBG PH 7.34 pH Units (7.32-7.42); VBG PO2 173 mmHg (25-50)
[2021-05-12 06:30] LABS: BUN/Creatinine Ratio 43 (6-26); Blood Urea Nitrogen 44 mg/dL (8-23); Calcium 7.8 mg/dL (8.6-10.3); Carbon Dioxide 16 mEq/L (23-29); Chloride 123 mEq/L (98-107); Glucose 120 mg/dL (70-105); Osmolality,Calculated 316 (280-300); Potassium 3.2 mEq/L (3.5-5.1); Sodium 147 mEq/L (136-145); eGFR For African Americans > 60 (> 60); eGFR For Non-African Americans 53 (> 60)
[2021-05-12] MEDS ORDERED: Azithromycin 500 MG in 0.9 % Sodium Chloride 250 ML IVPB SCH (09:00)
[2021-05-12] MEDS: Aspirin 81 MG TAB.CHEW PO SCH (09:01)
[2021-05-12 12:05] LABS: BUN/Creatinine Ratio 40 (6-26); Blood Urea Nitrogen 36 mg/dL (8-23); Calcium 7.8 mg/dL (8.6-10.3); Carbon Dioxide 16 mEq/L (23-29); Chloride 123 mEq/L (98-107); Glucose 119 mg/dL (70-105); Osmolality,Calculated 311 (280-300); Potassium 3.4 mEq/L (3.5-5.1); Sodium 146 mEq/L (136-145); eGFR For African Americans > 60 (> 60); eGFR For Non-African Americans > 60 (> 60)
[2021-05-12] MEDS: MethylPREDNISolone 40 MG/ML VIAL IVP SCH (15:12)
[2021-05-12 17:04] LABS: BUN/Creatinine Ratio 41 (6-26); Blood Urea Nitrogen 31 mg/dL (8-23); Calcium 7.7 mg/dL (8.6-10.3); Carbon Dioxide 17 mEq/L (23-29); Chloride 123 mEq/L (98-107); Glucose 147 mg/dL (70-105); Osmolality,Calculated 309 (280-300); Potassium 3.2 mEq/L (3.5-5.1); Sodium 145 mEq/L (136-145); eGFR For African Americans > 60 (> 60); eGFR For Non-African Americans > 60 (> 60)
[2021-05-12] MEDS ORDERED: *HR* Dextrose 50 % in Water (Syg) 50 ML SYRINGE IVP PRN (17:50)
[2021-05-12] MEDS ORDERED: Insulin Regular, Human 100 UNIT/ML IV PRN (17:50)
[2021-05-12 20:00] LABS: ABG Base Excess -6 mEq/L (-2 to 3); ABG HCO3 17 mEq/L (21-27); ABG Oxygen Saturation 93 % (95-98); ABG PCO2 24 mmHg (35-45); ABG PH 7.46 pH Units (7.32-7.45); ABG PO2 60 mmHg (85-104); ABG TCO2 18 mEq/L (20-26)
[2021-05-12 20:48] LABS: BUN/Creatinine Ratio 30 (6-26); Blood Urea Nitrogen 24 mg/dL (8-23); Calcium 7.8 mg/dL (8.6-10.3); Carbon Dioxide 17 mEq/L (23-29); Chloride 119 mEq/L (98-107); Glucose 130 mg/dL (70-105); Osmolality,Calculated 302 (280-300); Potassium 3.6 mEq/L (3.5-5.1); Sodium 143 mEq/L (136-145); eGFR For African Americans > 60 (> 60); eGFR For Non-African Americans > 60 (> 60)
[2021-05-13 02:09] LABS: Hematocrit 21.8 % (35.3-44.9); Hemoglobin 6.5 g/dL (11.5-15.4); Immature Granulocytes % 0.4 % (0-4); Lymphocytes # 0.3 K/mcL (0.6-4.6); Lymphocytes % 6.2 %; Mean Corpuscular HGB Conc 29.8 g/dL (31.6-35.5); Mean Corpuscular Hemoglobin 27.2 pg (28.0-33.3); Mean Corpuscular Volume 91.2 fL (83.0-100.0); Mean Platelet Volume 10.8 fL (9.4-12.4); Monocytes # 0.4 K/mcL (0.0-1.3); Monocytes % 6.7 %; Neutrophils # 4.6 K/mcL (1.6-8.9); Nucleated Red Blood Cells 0.6 /100 WBC (0); Platelet Count 142 K/mcL (140-400); Red Blood Count 2.39 M/mcL (3.82-4.97); Red Cell Distribution Width 17.7 % (11.5-14.5); Segmented Neutrophils % 86.7 %; White Blood Count 5.4 K/mcL (4.3-11.1)
[2021-05-13 02:31] LABS: Alanine Aminotransferase 38 Units/L (7-52); Albumin 2.4 g/dL (3.5-5.7); Albumin/Globulin Ratio 0.8 (1.1-2.2); Alkaline Phosphatase 78 Units/L (34-104); Aspartate Amino Transferase 57 Units/L (13-39); BUN/Creatinine Ratio 27 (6-26); Bilirubin,Total 0.3 mg/dL (0.3-1.0); Blood Urea Nitrogen 19 mg/dL (8-23); Calcium 7.5 mg/dL (8.6-10.3); Carbon Dioxide 16 mEq/L (23-29); Chloride 119 mEq/L (98-107); Globulin 3.2 g/dL (2.4-3.5); Glucose 133 mg/dL (70-105); Magnesium 1.5 mg/dL (1.6-2.6); Osmolality,Calculated 298 (280-300); Potassium 3.5 mEq/L (3.5-5.1); Sodium 142 mEq/L (136-145); Total Protein 5.6 g/dL (6.4-8.9); eGFR For African Americans > 60 (> 60); eGFR For Non-African Americans > 60 (> 60)
[2021-05-13] MEDS: Ipratropium 1 PUFF INHALER IH SCH ×5 (03:56→21:07)
[2021-05-13] MEDS ORDERED: Magnesium Sulfate 1 GM/102 ML PIGGYBACK IVPB ONE (07:59)
[2021-05-13] MEDS: Piperacillin/Tazobactam 3.375 GM in 0.9 % Sodium Chloride Mini Bag 100 ML IVPB SCH ×3 (07:59→17:10)
[2021-05-13] MEDS: MethylPREDNISolone 40 MG/ML VIAL IVP SCH (08:12)
[2021-05-13] MEDS: Aspirin Enteric Coated 81 MG Tablet PO SCH (08:22)
[2021-05-13] MEDS: Metoprolol XL (24 HR) Succ 25 MG TAB.ER.24H PO SCH (08:22)
[2021-05-13] MEDS ORDERED: 0.9 % Sodium Chloride 250 ML ONE (09:34)
[2021-05-13] MEDS: *HR* HYDROcodone/Acet 5/325 mg TABLET PO PRN ×2 (10:34→15:07)
[2021-05-13] MEDS: D5% in 0.45% NACL w KCl 20 MEQ/1,000 ML MLS IVC PRN (10:41)
[2021-05-13] MEDS: Insulin DETEMIR 100 UNIT/ML X5UNITS SUBQ SCH ×2 (12:57→21:43)
[2021-05-13] MEDS: Insulin LISPRO 300 UNITS/3 ML VIAL SUBQ SCH (17:18)
[2021-05-13 20:34] LABS: BUN/Creatinine Ratio 22 (6-26); Blood Urea Nitrogen 16 mg/dL (8-23); Calcium 7.8 mg/dL (8.6-10.3); Carbon Dioxide 17 mEq/L (23-29); Chloride 110 mEq/L (98-107); Glucose 293 mg/dL (70-105); Osmolality,Calculated 292 (280-300); Potassium 3.9 mEq/L (3.5-5.1); Sodium 135 mEq/L (136-145); eGFR For African Americans > 60 (> 60); eGFR For Non-African Americans > 60 (> 60)
[2021-05-14] MEDS: Ipratropium 1 PUFF INHALER IH SCH ×6 (00:42→20:07)
[2021-05-14] MEDS: Piperacillin/Tazobactam 3.375 GM in 0.9 % Sodium Chloride Mini Bag 100 ML IVPB SCH ×3 (00:46→16:04)
[2021-05-14] MEDS: *HR* HYDROcodone/Acet 5/325 mg TABLET PO PRN (00:51)
[2021-05-14 05:46] LABS: Basophils % 0.1 %; Hematocrit 29.3 % (35.3-44.9); Hemoglobin 8.5 g/dL (11.5-15.4); Immature Granulocytes % 0.6 % (0-4); Lymphocytes # 0.5 K/mcL (0.6-4.6); Lymphocytes % 6.9 %; Mean Corpuscular Hemoglobin 26.1 pg (28.0-33.3); Mean Corpuscular Volume 89.9 fL (83.0-100.0); Mean Platelet Volume 10.8 fL (9.4-12.4); Monocytes # 0.5 K/mcL (0.0-1.3); Monocytes % 7.2 %; Neutrophils # 5.9 K/mcL (1.6-8.9); Nucleated Red Blood Cells 0.3 /100 WBC (0); Platelet Count 149 K/mcL (140-400); Red Blood Count 3.26 M/mcL (3.82-4.97); Red Cell Distribution Width 17.8 % (11.5-14.5); Segmented Neutrophils % 85.2 %
[2021-05-14] MEDS ORDERED: hydrALAZINE 10 MG TABLET PO PRN (07:24)
[2021-05-14] MEDS: Insulin LISPRO 300 UNITS/3 ML VIAL SUBQ SCH ×3 (07:59→16:32)
[2021-05-14] MEDS: MethylPREDNISolone 40 MG/ML VIAL IVP SCH (07:59)
[2021-05-14] MEDS: Aspirin Enteric Coated 81 MG Tablet PO SCH (08:00)
[2021-05-14] MEDS: Insulin DETEMIR 100 UNIT/ML X5UNITS SUBQ SCH ×2 (08:00→20:00)
[2021-05-14] MEDS: Metoprolol XL (24 HR) Succ 25 MG TAB.ER.24H PO SCH (08:00)
[2021-05-14 09:56] LABS: BUN/Creatinine Ratio 21 (6-26); Blood Urea Nitrogen 15 mg/dL (8-23); Calcium 7.9 mg/dL (8.6-10.3); Carbon Dioxide 19 mEq/L (23-29); Chloride 109 mEq/L (98-107); Glucose 361 mg/dL (70-105); Osmolality,Calculated 299 (280-300); Potassium 3.5 mEq/L (3.5-5.1); Sodium 137 mEq/L (136-145); eGFR For African Americans > 60 (> 60); eGFR For Non-African Americans > 60 (> 60)
[2021-05-14] MEDS ORDERED: *HR* Labetalol 20 MG/4 ML SYRINGE IVP PRN (10:09)
[2021-05-14] MEDS: *HR* Enoxaparin 80 MG/0.8 ML SYRINGE SQ SCH (19:26)
[2021-05-14 20:02] LABS: BUN/Creatinine Ratio 21 (6-26); Blood Urea Nitrogen 15 mg/dL (8-23); Calcium 7.8 mg/dL (8.6-10.3); Carbon Dioxide 20 mEq/L (23-29); Chloride 110 mEq/L (98-107); Glucose 285 mg/dL (70-105); Osmolality,Calculated 293 (280-300); Potassium 3.7 mEq/L (3.5-5.1); Sodium 136 mEq/L (136-145); eGFR For African Americans > 60 (> 60); eGFR For Non-African Americans > 60 (> 60)
[2021-05-15] MEDS: Piperacillin/Tazobactam 3.375 GM in 0.9 % Sodium Chloride Mini Bag 100 ML IVPB SCH ×3 (01:03→15:04)
[2021-05-15 03:26] LABS: Basophils % 0.1 %; Hemoglobin 8.8 g/dL (11.5-15.4); Immature Granulocytes % 0.5 % (0-4); Lymphocytes # 0.5 K/mcL (0.6-4.6); Lymphocytes % 6.1 %; Mean Corpuscular HGB Conc 30.3 g/dL (31.6-35.5); Mean Corpuscular Hemoglobin 26.8 pg (28.0-33.3); Mean Corpuscular Volume 88.4 fL (83.0-100.0); Mean Platelet Volume 10.9 fL (9.4-12.4); Monocytes # 0.6 K/mcL (0.0-1.3); Monocytes % 8.2 %; Neutrophils # 6.4 K/mcL (1.6-8.9); Nucleated Red Blood Cells 0.4 /100 WBC (0); Platelet Count 150 K/mcL (140-400); Red Blood Count 3.28 M/mcL (3.82-4.97); Red Cell Distribution Width 17.7 % (11.5-14.5); Segmented Neutrophils % 85.1 %; White Blood Count 7.5 K/mcL (4.3-11.1)
[2021-05-15 03:42] LABS: BUN/Creatinine Ratio 23 (6-26); Blood Urea Nitrogen 16 mg/dL (8-23); Calcium 7.8 mg/dL (8.6-10.3); Carbon Dioxide 20 mEq/L (23-29); Chloride 108 mEq/L (98-107); Glucose 252 mg/dL (70-105); Osmolality,Calculated 292 (280-300); Potassium 3.3 mEq/L (3.5-5.1); Sodium 136 mEq/L (136-145); eGFR For African Americans > 60 (> 60); eGFR For Non-African Americans > 60 (> 60)
[2021-05-15] MEDS: Tiotropium 10 INH DOSE IH SCH (07:53)
[2021-05-15] MEDS: Aspirin Enteric Coated 81 MG Tablet PO SCH (08:00)
[2021-05-15] MEDS: MethylPREDNISolone 40 MG/ML VIAL IVP SCH (08:02)
[2021-05-15] MEDS: Metoprolol XL (24 HR) Succ 25 MG TAB.ER.24H PO SCH (08:03)
[2021-05-15] MEDS: Insulin LISPRO 300 UNITS/3 ML VIAL SUBQ SCH ×3 (08:13→16:50)
[2021-05-15] MEDS: Insulin DETEMIR 100 UNIT/ML X5UNITS SUBQ SCH ×2 (10:18→22:48)
[2021-05-15] MEDS ORDERED: D5% in Water 1,000 ML IVC PRN (13:12)
[2021-05-15] MEDS ORDERED: *HR* Dextrose 50 % in Water (Syg) 50 ML SYRINGE IVP PRN (13:12)
[2021-05-15] MEDS ORDERED: Dextrose Gel 15 GM/37.5 ML TUBE PO PRN ×2 (13:12)
[2021-05-15 14:38] LABS: Adenovirus F 40/41 PCR Not detected (Not detect); Astrovirus PCR Not detected (Not detect); C.difficile Toxin A/B Gene PCR Not detected (Not detect); Campylobacter by PCR Not detected (Not detect); Cryptosporidium by PCR Not detected (Not detect); Cyclospora cayetanensis PCR Not detected (Not detect); E. coli O157 by PCR Not detected (Not detect); Entamoeba histolytica PCR Not detected (Not detect); Enteroaggregative E.coli(EAEC) Not detected (Not detect); Enteropathogenic E.coli(EPEC) Not detected (Not detect); Enterotoxigenic E.coli (ETEC) Not detected (Not detect); Giardia lamblia PCR Not detected (Not detect); Norovirus GI/GII PCR Not detected (Not detect); Plesiomonas shigelloides PCR Not detected (Not detect); Rotavirus A PCR Not detected (Not detect); Salmonella PCR Not detected (Not detect); Sapovirus PCR Not detected (Not detect); Shig/EnteroinvasiveE coli EIEC Not detected (Not detect); Shigalike tox-prod E coli STEC Not detected (Not detect); Vibrio PCR Not detected (Not detect); Vibrio cholerae PCR Not detected (Not detect); Yersinia enterocolitica PCR Not detected (Not detect)
[2021-05-15] MEDS ORDERED: Insulin Human Regular 10 UNIT in 0.9 % Sodium Chloride 10 ML IV ONE (22:26)
[2021-05-16] MEDS: Piperacillin/Tazobactam 3.375 GM in 0.9 % Sodium Chloride Mini Bag 100 ML IVPB SCH ×2 (00:18→07:48)
[2021-05-16] MEDS: Tiotropium 10 INH DOSE IH SCH (07:45)
[2021-05-16] MEDS: Aspirin Enteric Coated 81 MG Tablet PO SCH (07:46)
[2021-05-16] MEDS: Metoprolol XL (24 HR) Succ 25 MG TAB.ER.24H PO SCH (07:46)
[2021-05-16] MEDS: Insulin LISPRO 300 UNITS/3 ML VIAL SUBQ SCH ×3 (07:47→16:29)
[2021-05-16] MEDS: Insulin DETEMIR 100 UNIT/ML X5UNITS SUBQ SCH ×2 (07:47→19:54)
[2021-05-16] MEDS: Cefdinir 300 MG CAPSULE PO SCH (19:54)
[2021-05-17 05:08] LABS: BUN/Creatinine Ratio 23 (6-26); Blood Urea Nitrogen 15 mg/dL (8-23); Calcium 7.7 mg/dL (8.6-10.3); Carbon Dioxide 23 mEq/L (23-29); Chloride 106 mEq/L (98-107); Glucose 211 mg/dL (70-105); Osmolality,Calculated 291 (280-300); Potassium 3.3 mEq/L (3.5-5.1); Sodium 137 mEq/L (136-145); eGFR For African Americans > 60 (> 60); eGFR For Non-African Americans > 60 (> 60)
[2021-05-17] MEDS: Tiotropium 10 INH DOSE IH SCH (07:18)
[2021-05-17] MEDS: Metoprolol XL (24 HR) Succ 25 MG TAB.ER.24H PO SCH (07:23)
[2021-05-17] MEDS: Aspirin Enteric Coated 81 MG Tablet PO SCH (07:23)
[2021-05-17] MEDS: Cefdinir 300 MG CAPSULE PO SCH ×2 (07:23→20:20)
[2021-05-17] MEDS: Insulin LISPRO 300 UNITS/3 ML VIAL SUBQ SCH ×3 (07:24→16:52)
[2021-05-17] MEDS: Insulin DETEMIR 100 UNIT/ML X5UNITS SUBQ SCH ×2 (07:26→20:20)
[2021-05-17] MEDS: Lactobacillus 1 EACH CAP.SPRINK PO SCH ×2 (11:39→20:20)
[2021-05-17] MEDS ORDERED: Metoprolol XL (24 HR) Succ 25 MG TAB.ER.24H PO ONE (12:45)
[2021-05-17] MEDS: Pregabalin 75 MG CAPSULE PO SCH (20:20)
[2021-05-17] MEDS: Topiramate 25 MG TABLET PO SCH (20:20)
[2021-05-17] MEDS ORDERED: Insulin LISPRO 300 UNITS/3 ML VIAL SUBQ SCH (21:00)
[2021-05-18 04:42] LABS: BUN/Creatinine Ratio 21 (6-26); Blood Urea Nitrogen 14 mg/dL (8-23); Calcium 7.7 mg/dL (8.6-10.3); Carbon Dioxide 23 mEq/L (23-29); Chloride 107 mEq/L (98-107); Glucose 226 mg/dL (70-105); Osmolality,Calculated 296 (280-300); Potassium 3.7 mEq/L (3.5-5.1); Sodium 139 mEq/L (136-145); eGFR For African Americans > 60 (> 60); eGFR For Non-African Americans > 60 (> 60)
[2021-05-18] MEDS ORDERED: *HR* Enoxaparin 40 MG/0.4 ML SYRINGE SQ SCH (06:00)
[2021-05-18] MEDS: Tiotropium 10 INH DOSE IH SCH (07:25)
[2021-05-18] MEDS: Pregabalin 75 MG CAPSULE PO SCH (07:44)
[2021-05-18] MEDS: Cefdinir 300 MG CAPSULE PO SCH (07:44)
[2021-05-18] MEDS: Topiramate 25 MG TABLET PO SCH (07:44)
[2021-05-18] MEDS: Lactobacillus 1 EACH CAP.SPRINK PO SCH (07:44)
[2021-05-18] MEDS: Insulin LISPRO 300 UNITS/3 ML VIAL SUBQ SCH ×2 (07:44→11:44)
[2021-05-18] MEDS: Aspirin Enteric Coated 81 MG Tablet PO SCH (07:45)
[2021-05-18] MEDS: Insulin DETEMIR 100 UNIT/ML X5UNITS SUBQ SCH (07:47)
[2021-05-18] MEDS ORDERED: Metoprolol XL (24 HR) Succ 50 MG TAB.ER.24H PO SCH (09:00)
[2021-05-18 15:33] VITALS: BP 125/65; PULSE 92; TEMP 98; O2SAT 97
== END 2021-05-18 17:24 | disposition home health service (06) | DRG 871 ==
LOC: ICNU 15:57 → EMEROOARM 15:57 → OBSVTOIN 20:05 → SUATTDRO 20:05 → 2NNU 20:34 → 2ANU 05-14 13:21
PROVIDERS: ADMIT Internal Medicine; ATTEND Internal Medicine

== ENCOUNTER 2021-06-01 00:21 | Inpatient (IN) ==
[2021-06-01] MEDS ORDERED: 0.9 % Sodium Chloride 1,000 ML IV ONE (00:44)
[2021-06-01] MEDS ORDERED: *HR* Adenosine 6 MG/2 ML SYRINGE IVP ONE (00:49)
[2021-06-01] MEDS ORDERED: *HR* Adenosine 6 MG/2 ML VIAL IVP ONE (00:51)
[2021-06-01] MEDS ORDERED: 0.9 % Sodium Chloride 1,000 ML ONE (00:58)
[2021-06-01] MEDS ORDERED: Piperacillin/Tazobactam 3.375 GM in 0.9 % Sodium Chloride Mini Bag 100 ML IVPB ONE (01:34)
[2021-06-01] MEDS ORDERED: Isovue-370 500 ML BOTTLE IVP ONE ×2 (01:36→02:20)
[2021-06-01 01:53] LABS: Eosinophils % 0.2 %; Hemoglobin 6.6 g/dL (11.5-15.4); Nucleated Red Blood Cells 0.2 /100 WBC (0)
[2021-06-01 01:54] LABS: Basophils # 0.1 K/mcL (0.0-0.2); Basophils % 0.3 %; Immature Granulocytes % 0.6 % (0-4); Mean Corpuscular HGB Conc 27.5 g/dL (31.6-35.5); Mean Corpuscular Hemoglobin 25.9 pg (28.0-33.3); Mean Corpuscular Volume 94.1 fL (83.0-100.0); Mean Platelet Volume 12.2 fL (9.4-12.4); Monocytes # 0.7 K/mcL (0.0-1.3); Monocytes % 4.4 %; Neutrophils # 14.3 K/mcL (1.6-8.9); Platelet Count 253 K/mcL (140-400); Red Blood Count 2.55 M/mcL (3.82-4.97); Segmented Neutrophils % 88.5 %; White Blood Count 16.2 K/mcL (4.3-11.1)
[2021-06-01 01:55] LABS: Bilirubin,Urine Negative (Negative); Blood,Urine Small (Negative); Clarity,Urine Clear (Clear); Color,Urine Yellow (Yellow); Glucose,Urine (UA) >=1000 mg/dL (Normal); Ketones,Urine 15 mg/dL (Negative); Leukocyte Esterase,Urine Negative (Negative); Nitrite,Urine Negative (Negative); PH,Urine 5.5 pH Units (5.0-8.0); Protein,Urine 30 mg/dL (Neg-Trace); Specific Gravity,Urine 1.025 (1.010-1.025); Urobilinogen,Urine Normal (Normal)
[2021-06-01 01:59] LABS: Budding Yeast,Urine Many per hpf (None Seen); Mucus,Urine Few per lpf (None-Few); RBC,Urine 50-100 per hpf (0-3); Squamous Epithelial Cell,Urine Few per hpf (None-Few); WBC,Urine 30-50 per hpf (0-3)
[2021-06-01 02:00] LABS: INR 1.4; Prothrombin Time 15.5 Seconds (9.4-12.1)
[2021-06-01] MEDS: 0.9 % Sodium Chloride 1,000 ML IVC SCH ×2 (02:00→22:09)
[2021-06-01] MEDS ORDERED: Vancomycin 1,250 MG/262.5 ML IV.SOLN IVPB ONE (02:00)
[2021-06-01 02:02] LABS: Activated Partial Thrombo Time 36.3 Seconds (26.0-36.0)
[2021-06-01] MEDS ORDERED: Pantoprazole 40 MG VIAL IVP ONE (02:03)
[2021-06-01 02:09] LABS: Albumin 2.9 g/dL (3.5-5.7); Albumin/Globulin Ratio 0.7 (1.1-2.2); Bilirubin,Direct 0.2 mg/dL (0.0-0.2); Bilirubin,Indirect 0.5 mg/dL (0.0-1.0); Bilirubin,Total 0.7 mg/dL (0.3-1.0); Globulin 4.2 g/dL (2.4-3.5); Magnesium 1.8 mg/dL (1.6-2.6); Phosphorous 2.7 mg/dL (2.7-4.5); Potassium 4.4 mEq/L (3.5-5.1); Total Protein 7.1 g/dL (6.4-8.9); Troponin I 0.22 ng/mL (< 0.04)
[2021-06-01] MEDS ORDERED: Insulin Regular, Human 100 UNIT/ML IV ONE (02:34)
[2021-06-01] MEDS ORDERED: D5% in Lactated Ringers 1,000 ML IVC SCH (02:45)
[2021-06-01 02:48] LABS: ABG Base Excess -12 mEq/L (-2 to 3); ABG HCO3 17 mEq/L (21-27); ABG Oxygen Saturation 99 % (95-98); ABG PCO2 52 mmHg (35-45); ABG PH 7.13 pH Units (7.32-7.45); ABG PO2 154 mmHg (85-104); ABG TCO2 19 mEq/L (20-26); Blood Gas Modality ASSIST CONTROL; Blood Gas VT 400 cc
[2021-06-01 03:11] LABS: Adenovirus Not Detected (Not Detect); Bordetella Pertussis Not Detected (Not Detect); Coronavirus 229E Not Detected (Not Detect); Coronavirus HKU1 Not Detected (Not Detect); Coronavirus NL63 Not Detected (Not Detect); Coronavirus OC43 Not Detected (Not Detect); Human Metapneumovirus Not Detected (Not Detect); Human Rhinovirus/Enterovirus Not Detected (Not Detect); Influenza A Subtype 2009 H1 Not Detected (Not Detect); Influenza B Not Detected (Not Detect); Parainfluenza Virus 1 Not Detected (Not Detect); Parainfluenza Virus 2 Not Detected (Not Detect); Parainfluenza Virus 3 Not Detected (Not Detect); Parainfluenza Virus 4 Not Detected (Not Detect); Respiratory Syncytial Virus Not Detected (Not Detect); SARS-CoV-2 Not Detected (Not Detect)
[2021-06-01 03:12] LABS: Chlamydophila pneumoniae Not Detected (Not Detect); Mycoplasma pneumoniae Not Detected (Not Detect)
[2021-06-01] MEDS ORDERED: *HR* Midazolam HCl 2 MG/2 ML VIAL IVP ONE ×2 (03:19→15:15)
[2021-06-01 03:30] LABS: Basophils # 0.1 K/mcL (0.0-0.2); Basophils % 0.3 %; Eosinophils % 0.2 %; Hematocrit 22.9 % (35.3-44.9); Hemoglobin 6.2 g/dL (11.5-15.4); Immature Granulocytes % 1.2 % (0-4); Lymphocytes # 1.3 K/mcL (0.6-4.6); Lymphocytes % 5.7 %; Mean Corpuscular HGB Conc 27.1 g/dL (31.6-35.5); Mean Corpuscular Hemoglobin 25.3 pg (28.0-33.3); Mean Corpuscular Volume 93.5 fL (83.0-100.0); Monocytes # 1.3 K/mcL (0.0-1.3); Monocytes % 5.7 %; Neutrophils # 19.2 K/mcL (1.6-8.9); Nucleated Red Blood Cells 0.5 /100 WBC (0); Platelet Count 242 K/mcL (140-400); Red Blood Count 2.45 M/mcL (3.82-4.97); Segmented Neutrophils % 86.9 %; White Blood Count 22.1 K/mcL (4.3-11.1)
[2021-06-01 03:33] LABS: VBG HCO3 15 mEq/L (21-27); VBG PCO2 39 mmHg (41-51); VBG PH 7.18 pH Units (7.32-7.42); VBG PO2 172 mmHg (25-50)
[2021-06-01] MEDS ORDERED: 0.9 % Sodium Chloride 250 ML ONE ×3 (05:04→20:31)
[2021-06-01 06:29] LABS: VBG HCO3 18 mEq/L (21-27); VBG PCO2 55 mmHg (41-51); VBG PH 7.13 pH Units (7.32-7.42); VBG PO2 98 mmHg (25-50)
[2021-06-01] MEDS ORDERED: Ringers Solution, Lactated 1,000 ML IVC SCH (06:45)
[2021-06-01 06:47] LABS: Calcium 7.4 mg/dL (8.6-10.3); Potassium 4.7 mEq/L (3.5-5.1); Troponin I 1.44 ng/mL (< 0.04)
[2021-06-01] MEDS ORDERED: Sodium Bicarbonate 150 MEQ in D5% in Water 1,000 ML IVC SCH (07:00)
[2021-06-01] MEDS ORDERED: Ringers Solution, Lactated 1,000 ML ONE (07:49)
[2021-06-01] MEDS: D5% in Lactated Ringers 1,000 ML IVC SCH ×2 (08:13→22:08)
[2021-06-01 08:15] LABS: Estimated Average Glucose 171 mg/dl; Hemoglobin A1C 7.6 %
[2021-06-01 08:18] LABS: ABG Base Excess -6 mEq/L (-2 to 3); ABG HCO3 22 mEq/L (21-27); ABG Oxygen Saturation 99 % (95-98); ABG PCO2 57 mmHg (35-45); ABG PH 7.19 pH Units (7.32-7.45); ABG PO2 193 mmHg (85-104); ABG TCO2 24 mEq/L (20-26); Blood Gas Modality VC; Blood Gas VT 400 cc
[2021-06-01 08:49] LABS: Calcium 7.5 mg/dL (8.6-10.3); Potassium 4.8 mEq/L (3.5-5.1)
[2021-06-01] MEDS: Piperacillin/Tazobactam 3.375 GM in 0.9 % Sodium Chloride Mini Bag 100 ML IVPB SCH ×2 (09:20→16:58)
[2021-06-01 09:36] LABS: Amphetamine Screen,Urine Negative ng/mL (Cutoff=1000); Barbiturate Screen,Urine Negative ng/mL (Cutoff=200); Benzodiazepines Screen,Urine Positive ng/mL (Cutoff=200); Cannabinoid Screen,Urine Negative ng/mL (Cutoff = 50); Cocaine Screen,Urine Negative ng/mL (Cutoff= 300); Opiate Screen,Urine Negative ng/mL (Cutoff=300); Phencyclidine Screen,Urine Negative ng/mL (Cutoff=25)
[2021-06-01 09:37] LABS: Calcium 7.5 mg/dL (8.6-10.3); Potassium 4.6 mEq/L (3.5-5.1)
[2021-06-01] MEDS: Dexmedetomidine HCl 400 MCG/100 ML MLS IVC SCH ×4 (09:53→22:18)
[2021-06-01 10:59] LABS: ABG Base Excess -5 mEq/L (-2 to 3); ABG HCO3 20 mEq/L (21-27); ABG Oxygen Saturation 93 % (95-98); ABG PCO2 32 mmHg (35-45); ABG PO2 66 mmHg (85-104); ABG TCO2 21 mEq/L (20-26); Blood Gas Modality ASSIST CONTROL; Blood Gas VT 450 cc
[2021-06-01] MEDS ORDERED: Artificial Tears SOLN 15 ML BOTTLE BOTH EYES PRN (11:16)
[2021-06-01] MEDS ORDERED: *HR* Dextrose 50 % in Water (Syg) 50 ML SYRINGE IVP PRN (11:16)
[2021-06-01] MEDS ORDERED: D5% in Water 1,000 ML IVC PRN (11:16)
[2021-06-01] MEDS ORDERED: Naloxone 0.4 MG/ML INJ IVP PRN (11:16)
[2021-06-01] MEDS ORDERED: Dextrose Gel 15 GM/37.5 ML TUBE PO PRN ×2 (11:16)
[2021-06-01] MEDS ORDERED: Vancomycin (wt based) 1,000 MG VIAL IVPB SCH (12:00)
[2021-06-01] MEDS: Albumin Human 5% 12.5 GM/250 ML IV.SOLN IVC SCH ×2 (12:07→12:27)
[2021-06-01 12:25] LABS: Hematocrit 24.6 % (35.3-44.9)
[2021-06-01 12:34] LABS: ABG Base Excess -3 mEq/L (-2 to 3); ABG HCO3 19 mEq/L (21-27); ABG Oxygen Saturation 99 % (95-98); ABG PCO2 23 mmHg (35-45); ABG PH 7.53 pH Units (7.32-7.45); ABG PO2 117 mmHg (85-104); ABG TCO2 20 mEq/L (20-26); Blood Gas Modality ASSIST CONTROL; Blood Gas VT 450 cc
[2021-06-01 12:34] LABS: Calcium 7.5 mg/dL (8.6-10.3); Potassium 4.9 mEq/L (3.5-5.1)
[2021-06-01] MEDS: FentaNYL (PF) 1,000 MCG/100 ML IV.SOLN IVC SCH ×2 (12:47→21:53)
[2021-06-01] MEDS: Azithromycin 500 MG in 0.9 % Sodium Chloride 250 ML IVPB SCH (12:51)
[2021-06-01] MEDS ORDERED: *HR* Norepinephrine 4 MG/4 ML VIAL IVC ONE ×2 (14:08→20:31)
[2021-06-01] MEDS: Norepinephrine 4 MG/254 ML IV.SOLN IVC SCH ×2 (14:11→20:41)
[2021-06-01 15:21] LABS: ABG Base Excess -5 mEq/L (-2 to 3); ABG HCO3 20 mEq/L (21-27); ABG Oxygen Saturation 96 % (95-98); ABG PCO2 30 mmHg (35-45); ABG PH 7.42 pH Units (7.32-7.45); ABG PO2 76 mmHg (85-104); ABG TCO2 20 mEq/L (20-26); Blood Gas Modality ASSIST CONTROL; Blood Gas VT 450 cc
[2021-06-01] MEDS: Ipratropium/Albuterol Neb 3 ML IH SCH ×3 (16:16→21:12)
[2021-06-01] MEDS: Insulin LISPRO 300 UNITS/3 ML VIAL SUBQ SCH ×3 (16:46→22:08)
[2021-06-01] MEDS: Artificial Tears SOLN 15 ML BOTTLE BOTH EYES SCH ×3 (18:10→22:08)
[2021-06-01] MEDS: Pantoprazole 40 MG VIAL IVP SCH (19:01)
[2021-06-01] MEDS: Aspirin 81 MG TAB.CHEW GTUBE SCH (19:01)
[2021-06-01] MEDS: Budesonide/Formoterol 160/4.5 1 PUFF INH IH SCH (21:12)
[2021-06-01 21:38] LABS: Hematocrit 22.9 % (35.3-44.9); Hemoglobin 6.5 g/dL (11.5-15.4)
[2021-06-01] MEDS: Chlorhexidine Rinse 15 ML MOUTHWASH MM SCH (22:04)
[2021-06-02] MEDS: D5% in Lactated Ringers 1,000 ML IVC SCH ×3 (01:00→16:07)
[2021-06-02] MEDS ORDERED: Vancomycin 1,250 MG/262.5 ML IV.SOLN IVPB SCH (02:00)
[2021-06-02] MEDS: Insulin LISPRO 300 UNITS/3 ML VIAL SUBQ SCH ×6 (02:15→19:56)
[2021-06-02] MEDS: Piperacillin/Tazobactam 3.375 GM in 0.9 % Sodium Chloride Mini Bag 100 ML IVPB SCH ×3 (02:19→16:16)
[2021-06-02] MEDS: Ipratropium/Albuterol Neb 3 ML IH SCH ×4 (03:16→21:23)
[2021-06-02 03:54] LABS: ABG Base Excess -4 mEq/L (-2 to 3); ABG HCO3 21 mEq/L (21-27); ABG Oxygen Saturation 93 % (95-98); ABG PCO2 35 mmHg (35-45); ABG PH 7.37 pH Units (7.32-7.45); ABG PO2 67 mmHg (85-104); ABG TCO2 22 mEq/L (20-26); Blood Gas VT 400 cc
[2021-06-02] MEDS: Artificial Tears SOLN 15 ML BOTTLE BOTH EYES SCH ×6 (05:22→19:37)
[2021-06-02] MEDS: Pantoprazole 40 MG VIAL IVP SCH ×2 (05:28→17:00)
[2021-06-02 05:51] LABS: Basophils % 0.4 %; Eosinophils # 0.2 K/mcL (0.0-0.6); Eosinophils % 1.7 %; Hematocrit 25.9 % (35.3-44.9); Hemoglobin 7.5 g/dL (11.5-15.4); Immature Granulocytes % 0.3 % (0-4); Lymphocytes % 11.6 %; Mean Corpuscular Hemoglobin 26.3 pg (28.0-33.3); Mean Corpuscular Volume 90.9 fL (83.0-100.0); Mean Platelet Volume 11.3 fL (9.4-12.4); Monocytes # 0.8 K/mcL (0.0-1.3); Monocytes % 8.8 %; Nucleated Red Blood Cells 0.2 /100 WBC (0); Platelet Count 158 K/mcL (140-400); Red Blood Count 2.85 M/mcL (3.82-4.97); Red Cell Distribution Width 17.6 % (11.5-14.5); Segmented Neutrophils % 77.2 %
[2021-06-02] MEDS: Norepinephrine 4 MG/254 ML IV.SOLN IVC SCH ×3 (05:51→16:36)
[2021-06-02] MEDS: Dexmedetomidine HCl 400 MCG/100 ML MLS IVC SCH ×3 (05:54→19:37)
[2021-06-02 06:09] LABS: BUN/Creatinine Ratio 12 (6-26); Blood Urea Nitrogen 12 mg/dL (8-23); Calcium 7.3 mg/dL (8.6-10.3); Carbon Dioxide 22 mEq/L (23-29); Chloride 111 mEq/L (98-107); Glucose 247 mg/dL (70-105); Magnesium 1.8 mg/dL (1.6-2.6); Osmolality,Calculated 294 (280-300); Phosphorous 1.9 mg/dL (2.7-4.5); Potassium 4.1 mEq/L (3.5-5.1); Sodium 138 mEq/L (136-145); eGFR For African Americans > 60 (> 60); eGFR For Non-African Americans 54 (> 60)
[2021-06-02] MEDS ORDERED: Potassium Phosphate 44 MEQ in 0.9 % Sodium Chloride 250 ML IVPB ONE (06:43)
[2021-06-02] MEDS ORDERED: Perflutren Lipid Microsphere 1.3 ML in 0.9 % Sodium Chloride 8.7 ML IVP PRN (07:20)
[2021-06-02] MEDS: Budesonide/Formoterol 160/4.5 1 PUFF INH IH SCH ×2 (07:24→21:23)
[2021-06-02] MEDS: Chlorhexidine Rinse 15 ML MOUTHWASH MM SCH ×2 (08:03→19:37)
[2021-06-02] MEDS: Aspirin 81 MG TAB.CHEW GTUBE SCH (08:03)
[2021-06-02] MEDS: FentaNYL (PF) 1,000 MCG/100 ML IV.SOLN IVC SCH ×2 (09:33→19:37)
[2021-06-02] MEDS: Azithromycin 500 MG in 0.9 % Sodium Chloride 250 ML IVPB SCH (12:26)
[2021-06-02] MEDS ORDERED: *HR* EPINEPHrine 1 MG/10 ML SYRINGE INTRATRACH PRN (14:24)
[2021-06-02] MEDS ORDERED: *HR* EPINEPHrine 1 MG/10 ML SYRINGE ONE (14:27)
[2021-06-02 14:35] LABS: Hematocrit 24.2 % (35.3-44.9); Hemoglobin 6.9 g/dL (11.5-15.4)
[2021-06-02 17:37] LABS: Hematocrit 26.1 % (35.3-44.9); Hemoglobin 7.5 g/dL (11.5-15.4)
[2021-06-02 18:45] LABS: BUN/Creatinine Ratio 13 (6-26); Blood Urea Nitrogen 12 mg/dL (8-23); Calcium 7.3 mg/dL (8.6-10.3); Carbon Dioxide 21 mEq/L (23-29); Chloride 112 mEq/L (98-107); Glucose 143 mg/dL (70-105); Osmolality,Calculated 290 (280-300); Potassium 3.9 mEq/L (3.5-5.1); Sodium 139 mEq/L (136-145); eGFR For African Americans > 60 (> 60); eGFR For Non-African Americans 60 (> 60)
[2021-06-02 18:48] LABS: Magnesium 1.7 mg/dL (1.6-2.6); Phosphorous 2.2 mg/dL (2.7-4.5); Troponin I 1.33 ng/mL (< 0.04)
[2021-06-03] MEDS: Artificial Tears SOLN 15 ML BOTTLE BOTH EYES SCH ×7 (00:19→23:18)
[2021-06-03] MEDS: Insulin LISPRO 300 UNITS/3 ML VIAL SUBQ SCH ×7 (00:19→23:18)
[2021-06-03] MEDS: Piperacillin/Tazobactam 3.375 GM in 0.9 % Sodium Chloride Mini Bag 100 ML IVPB SCH ×4 (02:04→23:21)
[2021-06-03] MEDS: Ipratropium/Albuterol Neb 3 ML IH SCH ×4 (03:20→21:29)
[2021-06-03] MEDS: FentaNYL (PF) 1,000 MCG/100 ML IV.SOLN IVC SCH ×3 (04:09→19:44)
[2021-06-03 04:17] LABS: ABG Base Excess -6 mEq/L (-2 to 3); ABG HCO3 17 mEq/L (21-27); ABG Oxygen Saturation 99 % (95-98); ABG PCO2 22 mmHg (35-45); ABG PH 7.51 pH Units (7.32-7.45); ABG PO2 136 mmHg (85-104); ABG TCO2 18 mEq/L (20-26); Blood Gas Modality ASSIST CONTROL; Blood Gas VT 400 cc
[2021-06-03 04:18] LABS: Basophils % 0.5 %; Eosinophils # 0.2 K/mcL (0.0-0.6); Hematocrit 26.6 % (35.3-44.9); Hemoglobin 7.9 g/dL (11.5-15.4); Immature Granulocytes % 0.4 % (0-4); Lymphocytes # 0.6 K/mcL (0.6-4.6); Lymphocytes % 6.8 %; Mean Corpuscular HGB Conc 29.7 g/dL (31.6-35.5); Mean Corpuscular Hemoglobin 27.1 pg (28.0-33.3); Mean Corpuscular Volume 91.1 fL (83.0-100.0); Mean Platelet Volume 11.9 fL (9.4-12.4); Monocytes # 0.6 K/mcL (0.0-1.3); Monocytes % 6.4 %; Neutrophils # 7.2 K/mcL (1.6-8.9); Nucleated Red Blood Cells 0.2 /100 WBC (0); Platelet Count 164 K/mcL (140-400); Red Blood Count 2.92 M/mcL (3.82-4.97); Red Cell Distribution Width 17.9 % (11.5-14.5); Segmented Neutrophils % 83.9 %; White Blood Count 8.6 K/mcL (4.3-11.1)
[2021-06-03 04:24] LABS: BUN/Creatinine Ratio 13 (6-26); Blood Urea Nitrogen 12 mg/dL (8-23); Calcium 7.6 mg/dL (8.6-10.3); Carbon Dioxide 20 mEq/L (23-29); Chloride 111 mEq/L (98-107); Glucose 220 mg/dL (70-105); Magnesium 1.7 mg/dL (1.6-2.6); Osmolality,Calculated 295 (280-300); Phosphorous 2.2 mg/dL (2.7-4.5); Potassium 4.3 mEq/L (3.5-5.1); Sodium 139 mEq/L (136-145); eGFR For African Americans > 60 (> 60); eGFR For Non-African Americans 58 (> 60)
[2021-06-03] MEDS: Pantoprazole 40 MG VIAL IVP SCH ×2 (05:42→18:16)
[2021-06-03] MEDS ORDERED: Potassium Phosphate 44 MEQ in 0.9 % Sodium Chloride 250 ML IVPB ONE (06:53)
[2021-06-03] MEDS: Budesonide/Formoterol 160/4.5 1 PUFF INH IH SCH ×2 (07:55→21:29)
[2021-06-03] MEDS: Aspirin 81 MG TAB.CHEW GTUBE SCH (09:28)
[2021-06-03] MEDS: Chlorhexidine Rinse 15 ML MOUTHWASH MM SCH ×2 (09:28→19:48)
[2021-06-03] MEDS: Dexmedetomidine HCl 400 MCG/100 ML MLS IVC SCH ×2 (09:29→22:13)
[2021-06-03] MEDS: D5% in Lactated Ringers 1,000 ML IVC SCH ×3 (09:35→15:25)
[2021-06-03] MEDS: Norepinephrine 4 MG/254 ML IV.SOLN IVC SCH ×2 (09:36→09:40)
[2021-06-03] MEDS: Azithromycin 500 MG in 0.9 % Sodium Chloride 250 ML IVPB SCH (11:35)
[2021-06-03] MEDS: Topiramate 25 MG CAP.SPRINK PO SCH ×2 (11:35→19:48)
[2021-06-03] MEDS: Pregabalin 75 MG CAPSULE PO SCH ×2 (11:35→19:48)
[2021-06-03 16:11] LABS: Hematocrit 24.4 % (35.3-44.9)
[2021-06-03 17:13] LABS: Appearance of Body Fluid Cloudy (Clear); Volume of Body Fluid 14 mL
[2021-06-03 17:13] LABS: Appearance of Body Fluid Cloudy (Clear); Volume of Body Fluid 12 mL
[2021-06-03 17:13] LABS: Appearance of Body Fluid Hazy (Clear); Volume of Body Fluid 21 mL
[2021-06-04 00:35] LABS: Hemoglobin 6.6 g/dL (11.5-15.4)
[2021-06-04] MEDS ORDERED: 0.9 % Sodium Chloride 250 ML IVC SCH (02:00)
[2021-06-04] MEDS: Ipratropium/Albuterol Neb 3 ML IH SCH ×4 (03:07→21:24)
[2021-06-04] MEDS: Artificial Tears SOLN 15 ML BOTTLE BOTH EYES SCH ×6 (03:26→23:38)
[2021-06-04] MEDS: Insulin LISPRO 300 UNITS/3 ML VIAL SUBQ SCH ×5 (03:26→19:48)
[2021-06-04 05:16] LABS: ABG Base Excess -5 mEq/L (-2 to 3); ABG HCO3 20 mEq/L (21-27); ABG Oxygen Saturation 87 % (95-98); ABG PCO2 35 mmHg (35-45); ABG PH 7.37 pH Units (7.32-7.45); ABG PO2 55 mmHg (85-104); ABG TCO2 21 mEq/L (20-26); Blood Gas Modality CPAP/PS; Blood Gas Pressure Support 10 cm H2O
[2021-06-04 06:06] LABS: Basophils % 0.5 %; Eosinophils # 0.1 K/mcL (0.0-0.6); Eosinophils % 1.6 %; Hematocrit 32.8 % (35.3-44.9); Immature Granulocytes % 0.5 % (0-4); Lymphocytes % 13.3 %; Mean Corpuscular HGB Conc 29.3 g/dL (31.6-35.5); Mean Corpuscular Hemoglobin 27.2 pg (28.0-33.3); Mean Corpuscular Volume 92.9 fL (83.0-100.0); Mean Platelet Volume 11.1 fL (9.4-12.4); Monocytes # 0.6 K/mcL (0.0-1.3); Monocytes % 7.7 %; Neutrophils # 5.7 K/mcL (1.6-8.9); Platelet Count 172 K/mcL (140-400); Red Blood Count 3.53 M/mcL (3.82-4.97); Red Cell Distribution Width 17.1 % (11.5-14.5); Segmented Neutrophils % 76.4 %; White Blood Count 7.5 K/mcL (4.3-11.1)
[2021-06-04 06:10] LABS: Hemoglobin 9.6 g/dL (11.5-15.4)
[2021-06-04] MEDS: Pantoprazole 40 MG VIAL IVP SCH ×2 (06:24→17:00)
[2021-06-04 06:48] LABS: BUN/Creatinine Ratio 13 (6-26); Blood Urea Nitrogen 14 mg/dL (8-23); Calcium 7.6 mg/dL (8.6-10.3); Carbon Dioxide 21 mEq/L (23-29); Chloride 113 mEq/L (98-107); Glucose 153 mg/dL (70-105); Magnesium 1.8 mg/dL (1.6-2.6); Osmolality,Calculated 296 (280-300); Phosphorous 2.7 mg/dL (2.7-4.5); Potassium 4.2 mEq/L (3.5-5.1); Sodium 141 mEq/L (136-145); eGFR For African Americans > 60 (> 60); eGFR For Non-African Americans 51 (> 60)
[2021-06-04] MEDS: Budesonide/Formoterol 160/4.5 1 PUFF INH IH SCH ×2 (07:35→21:24)
[2021-06-04] MEDS: Pregabalin 75 MG CAPSULE PO SCH ×2 (09:26→19:52)
[2021-06-04] MEDS: Aspirin 81 MG TAB.CHEW GTUBE SCH (09:26)
[2021-06-04] MEDS: Topiramate 25 MG CAP.SPRINK PO SCH ×2 (09:26→19:52)
[2021-06-04] MEDS: Piperacillin/Tazobactam 3.375 GM in 0.9 % Sodium Chloride Mini Bag 100 ML IVPB SCH ×2 (09:26→16:02)
[2021-06-04] MEDS: Chlorhexidine Rinse 15 ML MOUTHWASH MM SCH ×2 (09:26→19:36)
[2021-06-04] MEDS: D5% in Lactated Ringers 1,000 ML IVC SCH (09:27)
[2021-06-04] MEDS: Norepinephrine 4 MG/254 ML IV.SOLN IVC SCH ×2 (09:28→18:22)
[2021-06-04] MEDS: Dexmedetomidine HCl 400 MCG/100 ML MLS IVC SCH (11:21)
[2021-06-04] MEDS: Furosemide 40 MG/4 ML VIAL IVP SCH (11:24)
[2021-06-04] MEDS: Azithromycin 500 MG in 0.9 % Sodium Chloride 250 ML IVPB SCH (11:24)
[2021-06-04] MEDS: FentaNYL (PF) 1,000 MCG/100 ML IV.SOLN IVC SCH (11:49)
[2021-06-04] MEDS ORDERED: *HR* Midazolam HCl 5 MG/5 ML VIAL IVP ONE (12:36)
[2021-06-04] MEDS ORDERED: *HR* Midazolam HCl 2 MG/2 ML VIAL IVP ONE (12:42)
[2021-06-04 13:21] LABS: Hematocrit 30.8 % (35.3-44.9); Hemoglobin 9.1 g/dL (11.5-15.4); Mean Corpuscular HGB Conc 29.5 g/dL (31.6-35.5); Mean Corpuscular Hemoglobin 27.1 pg (28.0-33.3); Mean Corpuscular Volume 91.7 fL (83.0-100.0); Platelet Count 163 K/mcL (140-400); Red Blood Count 3.36 M/mcL (3.82-4.97); Red Cell Distribution Width 16.9 % (11.5-14.5); White Blood Count 9.8 K/mcL (4.3-11.1)
[2021-06-04] MEDS ORDERED: *HR* Rocuronium Bromide 50 MG/5 ML VIAL IVP ONE (17:08)
[2021-06-04] MEDS ORDERED: *HR* Etomidate 20 MG/10 ML AMPUL IVP ONE (17:08)
[2021-06-04] MEDS ORDERED: Morphine Sulfate 2 MG/ML SYRINGE IVP ONE (23:15)
[2021-06-04 23:24] LABS: ABG Base Excess -2 mEq/L (-2 to 3); ABG HCO3 22 mEq/L (21-27); ABG Oxygen Saturation 83 % (95-98); ABG PCO2 33 mmHg (35-45); ABG PH 7.42 pH Units (7.32-7.45); ABG PO2 45 mmHg (85-104); ABG TCO2 23 mEq/L (20-26); Blood Gas Modality NIV
[2021-06-05] MEDS: Insulin LISPRO 300 UNITS/3 ML VIAL SUBQ SCH ×7 (00:21→23:46)
[2021-06-05] MEDS: Piperacillin/Tazobactam 3.375 GM in 0.9 % Sodium Chloride Mini Bag 100 ML IVPB SCH ×4 (00:22→23:44)
[2021-06-05] MEDS ORDERED: Furosemide 40 MG/4 ML VIAL IVP ONE (00:32)
[2021-06-05] MEDS ORDERED: Morphine Sulfate 2 MG/ML SYRINGE IVP ONE (00:52)
[2021-06-05] MEDS ORDERED: *HR* Midazolam HCl 2 MG/2 ML VIAL IVP ONE (01:45)
[2021-06-05] MEDS ORDERED: *HR* Midazolam HCl 5 MG/5 ML VIAL IVP ONE (01:45)
[2021-06-05] MEDS ORDERED: *HR* Etomidate 20 MG/10 ML AMPUL IVP ONE (01:45)
[2021-06-05] MEDS: FentaNYL (PF) 1,000 MCG/100 ML IV.SOLN IVC SCH ×4 (02:44→23:50)
[2021-06-05] MEDS: Norepinephrine 4 MG/254 ML IV.SOLN IVC SCH ×2 (02:45→16:58)
[2021-06-05] MEDS: Artificial Tears SOLN 15 ML BOTTLE BOTH EYES SCH ×6 (02:46→23:39)
[2021-06-05] MEDS: Ipratropium/Albuterol Neb 3 ML IH SCH ×4 (03:10→19:56)
[2021-06-05 03:57] LABS: Basophils % 0.3 %; Eosinophils % 0.2 %; Hematocrit 29.5 % (35.3-44.9); Hemoglobin 8.7 g/dL (11.5-15.4); Immature Granulocytes % 0.5 % (0-4); Lymphocytes % 3.7 %; Mean Corpuscular HGB Conc 29.5 g/dL (31.6-35.5); Mean Corpuscular Hemoglobin 26.9 pg (28.0-33.3); Mean Corpuscular Volume 91.3 fL (83.0-100.0); Mean Platelet Volume 10.9 fL (9.4-12.4); Monocytes % 5.5 %; Platelet Count 157 K/mcL (140-400); Red Blood Count 3.23 M/mcL (3.82-4.97); Red Cell Distribution Width 17.1 % (11.5-14.5); Segmented Neutrophils % 89.8 %; White Blood Count 11.9 K/mcL (4.3-11.1)
[2021-06-05 03:58] LABS: Lymphocytes # 0.4 K/mcL (0.6-4.6); Monocytes # 0.7 K/mcL (0.0-1.3); Neutrophils # 10.7 K/mcL (1.6-8.9); Nucleated Red Blood Cells 0.2 /100 WBC (0)
[2021-06-05 04:04] LABS: BUN/Creatinine Ratio 11 (6-26); Blood Urea Nitrogen 12 mg/dL (8-23); Calcium 7.5 mg/dL (8.6-10.3); Carbon Dioxide 24 mEq/L (23-29); Chloride 111 mEq/L (98-107); Glucose 157 mg/dL (70-105); Magnesium 1.6 mg/dL (1.6-2.6); Osmolality,Calculated 295 (280-300); Phosphorous 2.8 mg/dL (2.7-4.5); Potassium 3.9 mEq/L (3.5-5.1); Sodium 141 mEq/L (136-145); eGFR For African Americans > 60 (> 60); eGFR For Non-African Americans 51 (> 60)
[2021-06-05 04:55] LABS: ABG Base Excess -2 mEq/L (-2 to 3); ABG HCO3 25 mEq/L (21-27); ABG Oxygen Saturation 95 % (95-98); ABG PCO2 53 mmHg (35-45); ABG PH 7.28 pH Units (7.32-7.45); ABG PO2 87 mmHg (85-104); ABG TCO2 27 mEq/L (20-26); Blood Gas Modality ASSIST CONTROL; Blood Gas VT 380 cc
[2021-06-05] MEDS: Pantoprazole 40 MG VIAL IVP SCH ×2 (05:18→16:58)
[2021-06-05] MEDS: Chlorhexidine Rinse 15 ML MOUTHWASH MM SCH ×2 (07:57→20:38)
[2021-06-05] MEDS: Aspirin 81 MG TAB.CHEW GTUBE SCH (07:57)
[2021-06-05] MEDS: Furosemide 40 MG/4 ML VIAL IVP SCH (07:58)
[2021-06-05] MEDS: Topiramate 25 MG CAP.SPRINK PO SCH ×2 (07:58→20:39)
[2021-06-05] MEDS: Pregabalin 75 MG CAPSULE PO SCH ×2 (07:58→20:40)
[2021-06-05] MEDS: Budesonide/Formoterol 160/4.5 1 PUFF INH IH SCH ×2 (08:04→19:56)
[2021-06-05] MEDS: Azithromycin 500 MG in 0.9 % Sodium Chloride 250 ML IVPB SCH (11:35)
[2021-06-05] MEDS: MethylPREDNISolone 40 MG/ML VIAL IVP SCH ×2 (16:21→23:45)
[2021-06-05] MEDS: Docusate Oral Soln 100 MG/10 ML UDC GTUBE SCH (20:38)
[2021-06-05 23:26] LABS: Appearance of Body Fluid Hazy (Clear); Volume of Body Fluid 20 mL
[2021-06-05 23:32] LABS: Appearance of Body Fluid Hazy (Clear); Volume of Body Fluid 20 mL
[2021-06-06] MEDS: Artificial Tears SOLN 15 ML BOTTLE BOTH EYES SCH ×6 (03:13→23:06)
[2021-06-06] MEDS: Insulin LISPRO 300 UNITS/3 ML VIAL SUBQ SCH ×6 (03:14→23:08)
[2021-06-06] MEDS: Ipratropium/Albuterol Neb 3 ML IH SCH ×4 (03:30→20:26)
[2021-06-06 03:45] LABS: Mean Corpuscular Volume 94.4 fL (83.0-100.0)
[2021-06-06 03:46] LABS: Basophils % 0.1 %; Hematocrit 32.2 % (35.3-44.9); Immature Granulocytes % 0.8 % (0-4); Lymphocytes % 2.1 %; Mean Corpuscular Hemoglobin 26.4 pg (28.0-33.3); Mean Platelet Volume 11.4 fL (9.4-12.4); Monocytes # 0.3 K/mcL (0.0-1.3); Neutrophils # 15.6 K/mcL (1.6-8.9); Platelet Count 170 K/mcL (140-400); Red Blood Count 3.41 M/mcL (3.82-4.97); Red Cell Distribution Width 17.2 % (11.5-14.5); White Blood Count 16.4 K/mcL (4.3-11.1)
[2021-06-06 04:02] LABS: Lymphocytes # 0.3 K/mcL (0.6-4.6)
[2021-06-06 04:15] LABS: Calcium 7.8 mg/dL (8.6-10.3); Magnesium 1.8 mg/dL (1.6-2.6); Phosphorous 3.2 mg/dL (2.7-4.5); Potassium 4.3 mEq/L (3.5-5.1)
[2021-06-06 04:18] LABS: Anisocytosis 1+ (Not Present); Hypochromasia Present (Not Present)
[2021-06-06 04:19] LABS: Platelet Estimate Normal (Normal)
[2021-06-06] MEDS: Pantoprazole 40 MG VIAL IVP SCH ×2 (04:35→16:37)
[2021-06-06] MEDS ORDERED: *HR* Midazolam HCl 5 MG/5 ML VIAL IVP ONE (05:07)
[2021-06-06 05:26] LABS: ABG Base Excess -4 mEq/L (-2 to 3); ABG HCO3 28 mEq/L (21-27); ABG Oxygen Saturation 80 % (95-98); ABG PCO2 91 mmHg (35-45); ABG PH 7.09 pH Units (7.32-7.45); ABG PO2 63 mmHg (85-104); ABG TCO2 30 mEq/L (20-26); Blood Gas Modality ASSIST CONTROL; Blood Gas VT 380 cc
[2021-06-06] MEDS: FentaNYL (PF) 1,000 MCG/100 ML IV.SOLN IVC SCH ×4 (05:58→21:19)
[2021-06-06] MEDS: Midazolam HCl 50 MG/100 ML IV.SOLN IVC SCH (06:12)
[2021-06-06] MEDS ORDERED: *HR* Rocuronium Bromide 50 MG/5 ML VIAL IVP ONE (06:40)
[2021-06-06] MEDS: Budesonide/Formoterol 160/4.5 1 PUFF INH IH SCH ×2 (07:53→20:26)
[2021-06-06 08:03] LABS: ABG Base Excess -3 mEq/L (-2 to 3); ABG HCO3 28 mEq/L (21-27); ABG Oxygen Saturation 91 % (95-98); ABG PCO2 81 mmHg (35-45); ABG PH 7.14 pH Units (7.32-7.45); ABG PO2 82 mmHg (85-104); ABG TCO2 30 mEq/L (20-26); Blood Gas Modality AF; Blood Gas VT 380 cc
[2021-06-06] MEDS: Norepinephrine 4 MG/254 ML IV.SOLN IVC SCH ×2 (08:37→19:38)
[2021-06-06] MEDS: MethylPREDNISolone 40 MG/ML VIAL IVP SCH ×3 (08:40→23:06)
[2021-06-06] MEDS: Piperacillin/Tazobactam 3.375 GM in 0.9 % Sodium Chloride Mini Bag 100 ML IVPB SCH ×3 (08:40→23:07)
[2021-06-06] MEDS: Docusate Oral Soln 100 MG/10 ML UDC GTUBE SCH ×2 (08:41→20:00)
[2021-06-06] MEDS: Topiramate 25 MG CAP.SPRINK PO SCH ×2 (08:41→19:50)
[2021-06-06] MEDS: Chlorhexidine Rinse 15 ML MOUTHWASH MM SCH ×2 (08:41→19:59)
[2021-06-06] MEDS: Pregabalin 75 MG CAPSULE PO SCH ×2 (08:41→20:00)
[2021-06-06] MEDS: Aspirin 81 MG TAB.CHEW GTUBE SCH (08:41)
[2021-06-06] MEDS ORDERED: Furosemide 40 MG/4 ML VIAL IVP SCH (09:00)
[2021-06-06] MEDS: Cisatracurium 200 MG in 0.9 % Sodium Chloride 180 ML IVC SCH (09:24)
[2021-06-06] MEDS: Furosemide 40 MG/4 ML VIAL IVP SCH ×3 (09:36→20:02)
[2021-06-06] MEDS: Dexmedetomidine HCl 400 MCG/100 ML MLS IVC SCH ×2 (09:46→19:38)
[2021-06-06 11:40] LABS: Albumin 2.5 g/dL (3.5-5.7); Albumin/Globulin Ratio 0.6 (1.1-2.2); Bilirubin,Direct 0.5 mg/dL (0.0-0.2); Bilirubin,Indirect 0.3 mg/dL (0.0-1.0); Bilirubin,Total 0.8 mg/dL (0.3-1.0); Globulin 3.9 g/dL (2.4-3.5); Total Protein 6.4 g/dL (6.4-8.9)
[2021-06-06] MEDS ORDERED: Micafungin 100 MG in 0.9 % Sodium Chloride Mini Bag 100 ML IVPB SCH (15:30)
[2021-06-06 19:22] LABS: Calcium 8.1 mg/dL (8.6-10.3); Potassium 3.9 mEq/L (3.5-5.1)
[2021-06-06] MEDS: Micafungin 100 MG in 0.9 % Sodium Chloride Mini Bag 100 ML IVPB SCH (19:26)
[2021-06-06] MEDS: Albuterol 2.5 MG/3 ML NEBULIZER IH PRN (20:24)
[2021-06-07 00:31] LABS: ABG Base Excess -4 mEq/L (-2 to 3); ABG HCO3 25 mEq/L (21-27); ABG Oxygen Saturation 96 % (95-98); ABG PCO2 61 mmHg (35-45); ABG PH 7.22 pH Units (7.32-7.45); ABG PO2 102 mmHg (85-104); ABG TCO2 27 mEq/L (20-26); Blood Gas Modality ASSIST CONTROL; Blood Gas VT 380 cc
[2021-06-07] MEDS: FentaNYL (PF) 1,000 MCG/100 ML IV.SOLN IVC SCH ×3 (01:45→23:16)
[2021-06-07] MEDS: Dexmedetomidine HCl 400 MCG/100 ML MLS IVC SCH ×2 (03:10→07:37)
[2021-06-07] MEDS: Ipratropium/Albuterol Neb 3 ML IH SCH ×4 (03:32→22:03)
[2021-06-07] MEDS: Artificial Tears SOLN 15 ML BOTTLE BOTH EYES SCH ×6 (03:52→23:09)
[2021-06-07] MEDS: Insulin LISPRO 300 UNITS/3 ML VIAL SUBQ SCH ×7 (03:53→23:11)
[2021-06-07] MEDS: Norepinephrine 4 MG/254 ML IV.SOLN IVC SCH ×5 (04:03→19:35)
[2021-06-07 04:19] LABS: Basophils % 0.1 %; Hematocrit 30.9 % (35.3-44.9); Hemoglobin 8.9 g/dL (11.5-15.4); Immature Granulocytes % 1.7 % (0-4); Lymphocytes # 0.4 K/mcL (0.6-4.6); Lymphocytes % 3.9 %; Mean Corpuscular HGB Conc 28.8 g/dL (31.6-35.5); Mean Corpuscular Hemoglobin 26.8 pg (28.0-33.3); Mean Corpuscular Volume 93.1 fL (83.0-100.0); Mean Platelet Volume 11.3 fL (9.4-12.4); Monocytes # 0.5 K/mcL (0.0-1.3); Monocytes % 4.8 %; Neutrophils # 8.6 K/mcL (1.6-8.9); Nucleated Red Blood Cells 0.2 /100 WBC (0); Platelet Count 185 K/mcL (140-400); Red Blood Count 3.32 M/mcL (3.82-4.97); Red Cell Distribution Width 17.1 % (11.5-14.5); Segmented Neutrophils % 89.5 %; White Blood Count 9.6 K/mcL (4.3-11.1)
[2021-06-07 04:25] LABS: Calcium 7.8 mg/dL (8.6-10.3); Magnesium 2.2 mg/dL (1.6-2.6); Phosphorous 3.7 mg/dL (2.7-4.5); Potassium 3.8 mEq/L (3.5-5.1)
[2021-06-07 04:40] LABS: Anisocytosis 1+ (Not Present); Platelet Estimate Normal (Normal)
[2021-06-07 05:08] LABS: ABG Base Excess -2 mEq/L (-2 to 3); ABG HCO3 27 mEq/L (21-27); ABG Oxygen Saturation 93 % (95-98); ABG PCO2 66 mmHg (35-45); ABG PH 7.22 pH Units (7.32-7.45); ABG PO2 81 mmHg (85-104); ABG TCO2 29 mEq/L (20-26); Blood Gas Modality ASSIST CONTROL; Blood Gas VT 380 cc
[2021-06-07] MEDS: Pantoprazole 40 MG VIAL IVP SCH ×2 (05:12→15:58)
[2021-06-07] MEDS: Budesonide/Formoterol 160/4.5 1 PUFF INH IH SCH ×2 (07:32→22:03)
[2021-06-07] MEDS: Docusate Oral Soln 100 MG/10 ML UDC GTUBE SCH ×2 (09:03→20:17)
[2021-06-07] MEDS: Chlorhexidine Rinse 15 ML MOUTHWASH MM SCH ×2 (09:03→20:17)
[2021-06-07] MEDS: Micafungin 100 MG in 0.9 % Sodium Chloride Mini Bag 100 ML IVPB SCH (09:04)
[2021-06-07] MEDS: Piperacillin/Tazobactam 3.375 GM in 0.9 % Sodium Chloride Mini Bag 100 ML IVPB SCH ×3 (09:07→23:08)
[2021-06-07] MEDS: Pregabalin 75 MG CAPSULE PO SCH ×2 (09:07→20:17)
[2021-06-07] MEDS: Aspirin 81 MG TAB.CHEW GTUBE SCH (09:07)
[2021-06-07] MEDS: Furosemide 40 MG/4 ML VIAL IVP SCH ×2 (09:07→15:58)
[2021-06-07] MEDS: Topiramate 25 MG CAP.SPRINK PO SCH ×2 (09:07→19:41)
[2021-06-07] MEDS: MethylPREDNISolone 40 MG/ML VIAL IVP SCH ×3 (09:09→23:07)
[2021-06-07] MEDS: Cisatracurium 200 MG in 0.9 % Sodium Chloride 180 ML IVC SCH (19:34)
[2021-06-07] MEDS: Midazolam HCl 50 MG/100 ML IV.SOLN IVC SCH (19:34)
[2021-06-08] MEDS: Dexmedetomidine HCl 400 MCG/100 ML MLS IVC SCH ×4 (01:03→23:36)
[2021-06-08] MEDS: Norepinephrine 4 MG/254 ML IV.SOLN IVC SCH (03:05)
[2021-06-08] MEDS: Artificial Tears SOLN 15 ML BOTTLE BOTH EYES SCH ×6 (03:05→23:10)
[2021-06-08] MEDS: Insulin LISPRO 300 UNITS/3 ML VIAL SUBQ SCH ×6 (03:06→23:11)
[2021-06-08] MEDS: Ipratropium/Albuterol Neb 3 ML IH SCH ×4 (03:21→19:41)
[2021-06-08] MEDS: Midazolam HCl 50 MG/100 ML IV.SOLN IVC SCH (03:34)
[2021-06-08 04:12] LABS: Hematocrit 29.3 % (35.3-44.9); Hemoglobin 8.7 g/dL (11.5-15.4); Immature Granulocytes % 1.4 % (0-4); Lymphocytes # 0.5 K/mcL (0.6-4.6); Lymphocytes % 8.1 %; Mean Corpuscular HGB Conc 29.7 g/dL (31.6-35.5); Mean Corpuscular Hemoglobin 26.8 pg (28.0-33.3); Mean Corpuscular Volume 90.2 fL (83.0-100.0); Mean Platelet Volume 11.2 fL (9.4-12.4); Monocytes # 0.3 K/mcL (0.0-1.3); Monocytes % 4.8 %; Nucleated Red Blood Cells 0.7 /100 WBC (0); Platelet Count 164 K/mcL (140-400); Red Blood Count 3.25 M/mcL (3.82-4.97); Segmented Neutrophils % 85.7 %; White Blood Count 5.8 K/mcL (4.3-11.1)
[2021-06-08 04:27] LABS: Magnesium 2.2 mg/dL (1.6-2.6); Phosphorous 2.4 mg/dL (2.7-4.5); Potassium 3.5 mEq/L (3.5-5.1)
[2021-06-08 04:45] LABS: ABG Base Excess 0 mEq/L (-2 to 3); ABG HCO3 28 mEq/L (21-27); ABG Oxygen Saturation 88 % (95-98); ABG PCO2 61 mmHg (35-45); ABG PH 7.27 pH Units (7.32-7.45); ABG PO2 65 mmHg (85-104); ABG TCO2 30 mEq/L (20-26); Blood Gas VT 380 cc
[2021-06-08] MEDS: Pantoprazole 40 MG VIAL IVP SCH ×2 (05:18→18:07)
[2021-06-08] MEDS: *HR* Metoprolol 5 MG/5 ML VIAL IVP PRN (05:41)
[2021-06-08] MEDS: FentaNYL (PF) 1,000 MCG/100 ML IV.SOLN IVC SCH ×2 (06:41→20:06)
[2021-06-08] MEDS: Budesonide/Formoterol 160/4.5 1 PUFF INH IH SCH ×2 (08:00→19:41)
[2021-06-08] MEDS: MethylPREDNISolone 40 MG/ML VIAL IVP SCH ×3 (08:26→23:10)
[2021-06-08] MEDS: Piperacillin/Tazobactam 3.375 GM in 0.9 % Sodium Chloride Mini Bag 100 ML IVPB SCH (08:26)
[2021-06-08] MEDS: Chlorhexidine Rinse 15 ML MOUTHWASH MM SCH ×2 (08:26→19:45)
[2021-06-08] MEDS: Cisatracurium 200 MG in 0.9 % Sodium Chloride 180 ML IVC SCH (08:31)
[2021-06-08] MEDS: Micafungin 100 MG in 0.9 % Sodium Chloride Mini Bag 100 ML IVPB SCH (08:34)
[2021-06-08] MEDS: Aspirin 81 MG TAB.CHEW GTUBE SCH (08:58)
[2021-06-08] MEDS: Docusate Oral Soln 100 MG/10 ML UDC GTUBE SCH ×2 (08:58→19:45)
[2021-06-08] MEDS: Topiramate 25 MG CAP.SPRINK PO SCH ×2 (08:59→19:45)
[2021-06-08] MEDS: Pregabalin 75 MG CAPSULE PO SCH ×2 (08:59→19:46)
[2021-06-08 17:43] LABS: HSV Source BAL RLL
[2021-06-08 17:43] LABS: HSV Source BAL LLL
[2021-06-08 17:43] LABS: HSV Source BAL LUL
[2021-06-08] MEDS: cefTRIAXone 2,000 MG in 0.9 % Sodium Chloride Mini Bag 100 ML IVPB SCH (18:07)
[2021-06-09] MEDS: Albuterol 2.5 MG/3 ML NEBULIZER IH PRN (00:08)
[2021-06-09] MEDS: Insulin LISPRO 300 UNITS/3 ML VIAL SUBQ SCH ×6 (03:16→23:29)
[2021-06-09] MEDS: Artificial Tears SOLN 15 ML BOTTLE BOTH EYES SCH ×6 (03:16→23:31)
[2021-06-09 03:49] LABS: Basophils % 0.1 %; Hemoglobin 8.8 g/dL (11.5-15.4); Mean Platelet Volume 11.2 fL (9.4-12.4); Red Cell Distribution Width 17.2 % (11.5-14.5)
[2021-06-09 03:51] LABS: Hematocrit 30.9 % (35.3-44.9); Lymphocytes # 0.3 K/mcL (0.6-4.6); Lymphocytes % 3.1 %; Mean Corpuscular HGB Conc 28.5 g/dL (31.6-35.5); Mean Corpuscular Hemoglobin 26.5 pg (28.0-33.3); Mean Corpuscular Volume 93.1 fL (83.0-100.0); Monocytes # 0.3 K/mcL (0.0-1.3); Monocytes % 4.1 %; Neutrophils # 7.4 K/mcL (1.6-8.9); Platelet Count 158 K/mcL (140-400); Red Blood Count 3.32 M/mcL (3.82-4.97); Segmented Neutrophils % 90.7 %; White Blood Count 8.1 K/mcL (4.3-11.1)
[2021-06-09 03:58] LABS: Albumin 2.9 g/dL (3.5-5.7); Albumin/Globulin Ratio 0.7 (1.1-2.2); Bilirubin,Total 0.4 mg/dL (0.3-1.0); Calcium 7.9 mg/dL (8.6-10.3); Globulin 3.9 g/dL (2.4-3.5); Magnesium 2.3 mg/dL (1.6-2.6); Phosphorous 3.8 mg/dL (2.7-4.5); Potassium 4.5 mEq/L (3.5-5.1); Total Protein 6.8 g/dL (6.4-8.9)
[2021-06-09] MEDS: Ipratropium/Albuterol Neb 3 ML IH SCH ×4 (04:02→21:47)
[2021-06-09] MEDS: Midazolam HCl 50 MG/100 ML IV.SOLN IVC SCH (04:31)
[2021-06-09] MEDS: Dexmedetomidine HCl 400 MCG/100 ML MLS IVC SCH ×4 (04:32→19:55)
[2021-06-09 04:37] LABS: ABG Base Excess 0 mEq/L (-2 to 3); ABG HCO3 29 mEq/L (21-27); ABG Oxygen Saturation 84 % (95-98); ABG PCO2 79 mmHg (35-45); ABG PH 7.18 pH Units (7.32-7.45); ABG PO2 64 mmHg (85-104); ABG TCO2 32 mEq/L (20-26); Blood Gas Modality ASSIST CONTROL; Blood Gas VT 380 cc
[2021-06-09] MEDS: cefTRIAXone 2,000 MG in 0.9 % Sodium Chloride Mini Bag 100 ML IVPB SCH (05:07)
[2021-06-09] MEDS: Pantoprazole 40 MG VIAL IVP SCH ×2 (05:07→17:50)
[2021-06-09] MEDS: FentaNYL (PF) 1,000 MCG/100 ML IV.SOLN IVC SCH ×3 (06:43→17:51)
[2021-06-09] MEDS: Budesonide/Formoterol 160/4.5 1 PUFF INH IH SCH ×2 (07:30→21:47)
[2021-06-09] MEDS: Docusate Oral Soln 100 MG/10 ML UDC GTUBE SCH ×2 (08:07→20:24)
[2021-06-09] MEDS: Chlorhexidine Rinse 15 ML MOUTHWASH MM SCH ×2 (08:08→20:24)
[2021-06-09] MEDS: Aspirin 81 MG TAB.CHEW GTUBE SCH (08:08)
[2021-06-09] MEDS: Topiramate 25 MG CAP.SPRINK PO SCH ×2 (08:08→20:25)
[2021-06-09] MEDS: MethylPREDNISolone 40 MG/ML VIAL IVP SCH ×3 (08:08→23:30)
[2021-06-09] MEDS: Pregabalin 75 MG CAPSULE PO SCH ×2 (08:21→20:25)
[2021-06-09 10:42] LABS: ABG Base Excess 2 mEq/L (-2 to 3); ABG HCO3 28 mEq/L (21-27); ABG Oxygen Saturation 94 % (95-98); ABG PCO2 46 mmHg (35-45); ABG PH 7.39 pH Units (7.32-7.45); ABG PO2 72 mmHg (85-104); ABG TCO2 29 mEq/L (20-26); Blood Gas VT 420 cc
[2021-06-10] MEDS: Dexmedetomidine HCl 400 MCG/100 ML MLS IVC SCH ×5 (00:39→22:19)
[2021-06-10] MEDS: FentaNYL (PF) 1,000 MCG/100 ML IV.SOLN IVC SCH ×4 (01:29→22:58)
[2021-06-10] MEDS: Ipratropium/Albuterol Neb 3 ML IH SCH ×4 (03:21→21:44)
[2021-06-10] MEDS: Artificial Tears SOLN 15 ML BOTTLE BOTH EYES SCH ×5 (03:52→20:21)
[2021-06-10] MEDS: Insulin LISPRO 300 UNITS/3 ML VIAL SUBQ SCH ×5 (03:54→20:22)
[2021-06-10 04:29] LABS: ABG Base Excess 2 mEq/L (-2 to 3); ABG HCO3 27 mEq/L (21-27); ABG Oxygen Saturation 96 % (95-98); ABG PCO2 46 mmHg (35-45); ABG PH 7.38 pH Units (7.32-7.45); ABG PO2 85 mmHg (85-104); ABG TCO2 28 mEq/L (20-26); Blood Gas Modality ASSIST CONTROL; Blood Gas VT 420 cc
[2021-06-10 04:51] LABS: Hematocrit 25.2 % (35.3-44.9); Hemoglobin 7.4 g/dL (11.5-15.4); Immature Granulocytes % 0.4 % (0-4); Lymphocytes # 0.2 K/mcL (0.6-4.6); Lymphocytes % 4.4 %; Mean Corpuscular HGB Conc 29.4 g/dL (31.6-35.5); Mean Corpuscular Hemoglobin 26.5 pg (28.0-33.3); Mean Corpuscular Volume 90.3 fL (83.0-100.0); Mean Platelet Volume 11.1 fL (9.4-12.4); Monocytes # 0.3 K/mcL (0.0-1.3); Monocytes % 5.4 %; Neutrophils # 4.3 K/mcL (1.6-8.9); Platelet Count 133 K/mcL (140-400); Red Blood Count 2.79 M/mcL (3.82-4.97); Red Cell Distribution Width 16.8 % (11.5-14.5); Segmented Neutrophils % 89.8 %; White Blood Count 4.8 K/mcL (4.3-11.1)
[2021-06-10 04:59] LABS: Calcium 7.7 mg/dL (8.6-10.3); Magnesium 2.2 mg/dL (1.6-2.6); Phosphorous 1.8 mg/dL (2.7-4.5)
[2021-06-10] MEDS: Pantoprazole 40 MG VIAL IVP SCH ×2 (05:30→16:35)
[2021-06-10] MEDS: cefTRIAXone 2,000 MG in 0.9 % Sodium Chloride Mini Bag 100 ML IVPB SCH (05:31)
[2021-06-10] MEDS ORDERED: Calcium Gluconate 1gm/50mL 1 GM/50 ML BAG IVPB ONE (05:36)
[2021-06-10] MEDS: Midazolam HCl 50 MG/100 ML IV.SOLN IVC SCH (06:37)
[2021-06-10] MEDS: Budesonide/Formoterol 160/4.5 1 PUFF INH IH SCH ×2 (07:05→21:44)
[2021-06-10] MEDS: Insulin DETEMIR 100 UNIT/ML X5UNITS SUBQ SCH ×2 (07:56→20:26)
[2021-06-10] MEDS: Pregabalin 75 MG CAPSULE PO SCH ×2 (08:05→20:22)
[2021-06-10] MEDS: MethylPREDNISolone 40 MG/ML VIAL IVP SCH ×2 (08:06→16:31)
[2021-06-10] MEDS: Chlorhexidine Rinse 15 ML MOUTHWASH MM SCH ×2 (08:06→20:22)
[2021-06-10] MEDS: Aspirin 81 MG TAB.CHEW GTUBE SCH (08:06)
[2021-06-10] MEDS: Docusate Oral Soln 100 MG/10 ML UDC GTUBE SCH ×2 (08:06→20:22)
[2021-06-10] MEDS: Topiramate 25 MG CAP.SPRINK PO SCH ×2 (08:12→20:22)
[2021-06-10] MEDS: *HR* Metoprolol 5 MG/5 ML VIAL IVP PRN (14:37)
[2021-06-10] MEDS: Norepinephrine 4 MG/254 ML IV.SOLN IVC SCH (19:19)
[2021-06-10] MEDS: Furosemide 40 MG/4 ML VIAL IVP SCH (19:21)
[2021-06-11] MEDS: MethylPREDNISolone 40 MG/ML VIAL IVP SCH ×3 (00:28→16:32)
[2021-06-11] MEDS: Insulin LISPRO 300 UNITS/3 ML VIAL SUBQ SCH ×6 (00:28→19:38)
[2021-06-11] MEDS: Artificial Tears SOLN 15 ML BOTTLE BOTH EYES SCH ×6 (00:29→19:38)
[2021-06-11] MEDS: Ipratropium/Albuterol Neb 3 ML IH SCH ×4 (03:09→23:14)
[2021-06-11 03:46] LABS: ABG Base Excess 3 mEq/L (-2 to 3); ABG HCO3 29 mEq/L (21-27); ABG Oxygen Saturation 98 % (95-98); ABG PCO2 49 mmHg (35-45); ABG PH 7.37 pH Units (7.32-7.45); ABG PO2 103 mmHg (85-104); ABG TCO2 30 mEq/L (20-26); Blood Gas VT 420 cc
[2021-06-11 04:09] LABS: BUN/Creatinine Ratio 58 (6-26); Blood Urea Nitrogen 53 mg/dL (8-23); Carbon Dioxide 28 mEq/L (23-29); Chloride 111 mEq/L (98-107); Glucose 309 mg/dL (70-105); Magnesium 2.1 mg/dL (1.6-2.6); Osmolality,Calculated 326 (280-300); Phosphorous 2.3 mg/dL (2.7-4.5); Potassium 4.1 mEq/L (3.5-5.1); Sodium 145 mEq/L (136-145); eGFR For African Americans > 60 (> 60); eGFR For Non-African Americans > 60 (> 60)
[2021-06-11 04:24] LABS: Basophils % 0.1 %; Hematocrit 27.3 % (35.3-44.9); Immature Granulocytes % 0.4 % (0-4); Lymphocytes # 0.2 K/mcL (0.6-4.6); Lymphocytes % 3.4 %; Mean Corpuscular HGB Conc 29.3 g/dL (31.6-35.5); Mean Corpuscular Hemoglobin 26.8 pg (28.0-33.3); Mean Corpuscular Volume 91.3 fL (83.0-100.0); Monocytes # 0.3 K/mcL (0.0-1.3); Monocytes % 3.7 %; Neutrophils # 6.3 K/mcL (1.6-8.9); Platelet Count 130 K/mcL (140-400); Red Blood Count 2.99 M/mcL (3.82-4.97); Red Cell Distribution Width 17.2 % (11.5-14.5); Segmented Neutrophils % 92.4 %; White Blood Count 6.8 K/mcL (4.3-11.1)
[2021-06-11 04:33] LABS: Adenovirus F 40/41 PCR Not detected (Not detect); Astrovirus PCR Not detected (Not detect); C.difficile Toxin A/B Gene PCR Not detected (Not detect); Campylobacter by PCR Not detected (Not detect); Cryptosporidium by PCR Not detected (Not detect); Cyclospora cayetanensis PCR Not detected (Not detect); E. coli O157 by PCR Not detected (Not detect); Entamoeba histolytica PCR Not detected (Not detect); Enteroaggregative E.coli(EAEC) Not detected (Not detect); Enteropathogenic E.coli(EPEC) Not detected (Not detect); Enterotoxigenic E.coli (ETEC) Not detected (Not detect); Giardia lamblia PCR Not detected (Not detect); Norovirus GI/GII PCR Not detected (Not detect); Plesiomonas shigelloides PCR Not detected (Not detect); Rotavirus A PCR Not detected (Not detect); Salmonella PCR Not detected (Not detect); Sapovirus PCR Not detected (Not detect); Shig/EnteroinvasiveE coli EIEC Not detected (Not detect); Shigalike tox-prod E coli STEC Not detected (Not detect); Vibrio PCR Not detected (Not detect); Vibrio cholerae PCR Not detected (Not detect); Yersinia enterocolitica PCR Not detected (Not detect)
[2021-06-11] MEDS: cefTRIAXone 2,000 MG in 0.9 % Sodium Chloride Mini Bag 100 ML IVPB SCH (05:02)
[2021-06-11] MEDS: Pantoprazole 40 MG VIAL IVP SCH ×2 (05:02→16:32)
[2021-06-11] MEDS: Midazolam HCl 50 MG/100 ML IV.SOLN IVC SCH (05:03)
[2021-06-11] MEDS: FentaNYL (PF) 1,000 MCG/100 ML IV.SOLN IVC SCH ×3 (05:12→21:24)
[2021-06-11] MEDS: Dexmedetomidine HCl 400 MCG/100 ML MLS IVC SCH ×4 (05:13→23:19)
[2021-06-11] MEDS: Budesonide/Formoterol 160/4.5 1 PUFF INH IH SCH ×2 (07:37→23:14)
[2021-06-11] MEDS: Chlorhexidine Rinse 15 ML MOUTHWASH MM SCH ×2 (10:24→19:37)
[2021-06-11] MEDS: Aspirin 81 MG TAB.CHEW GTUBE SCH (10:24)
[2021-06-11] MEDS: Docusate Oral Soln 100 MG/10 ML UDC GTUBE SCH ×2 (10:24→19:37)
[2021-06-11] MEDS: Pregabalin 75 MG CAPSULE PO SCH ×2 (10:24→19:37)
[2021-06-11] MEDS: Topiramate 25 MG CAP.SPRINK PO SCH ×2 (10:25→19:37)
[2021-06-11] MEDS ORDERED: Insulin DETEMIR 100 UNIT/ML X5UNITS SUBQ SCH (21:00)
[2021-06-12] MEDS: Artificial Tears SOLN 15 ML BOTTLE BOTH EYES SCH ×7 (00:22→23:22)
[2021-06-12] MEDS: MethylPREDNISolone 40 MG/ML VIAL IVP SCH ×2 (00:22→08:15)
[2021-06-12] MEDS: Insulin LISPRO 300 UNITS/3 ML VIAL SUBQ SCH ×7 (00:25→23:23)
[2021-06-12] MEDS: Ipratropium/Albuterol Neb 3 ML IH SCH ×4 (03:39→21:43)
[2021-06-12 03:53] LABS: Immature Granulocytes % 0.5 % (0-4)
[2021-06-12 03:54] LABS: Hemoglobin 7.7 g/dL (11.5-15.4); Lymphocytes # 0.2 K/mcL (0.6-4.6); Lymphocytes % 2.1 %; Mean Corpuscular HGB Conc 29.6 g/dL (31.6-35.5); Mean Corpuscular Hemoglobin 27.5 pg (28.0-33.3); Mean Corpuscular Volume 92.9 fL (83.0-100.0); Mean Platelet Volume 12.4 fL (9.4-12.4); Monocytes # 0.3 K/mcL (0.0-1.3); Monocytes % 3.8 %; Neutrophils # 7.6 K/mcL (1.6-8.9); Platelet Count 132 K/mcL (140-400); Segmented Neutrophils % 93.6 %; White Blood Count 8.1 K/mcL (4.3-11.1)
[2021-06-12 03:55] LABS: ABG Base Excess 2 mEq/L (-2 to 3); ABG HCO3 29 mEq/L (21-27); ABG Oxygen Saturation 96 % (95-98); ABG PCO2 53 mmHg (35-45); ABG PH 7.34 pH Units (7.32-7.45); ABG PO2 91 mmHg (85-104); ABG TCO2 30 mEq/L (20-26); Blood Gas VT 420 cc
[2021-06-12 04:06] LABS: VBG Ionized Calcium 1.18 mmol/L (1.15-1.35)
[2021-06-12 04:19] LABS: Platelet Estimate Normal (Normal)
[2021-06-12] MEDS ORDERED: Insulin Human Regular 10 UNIT in 0.9 % Sodium Chloride 10 ML IV ONE (04:40)
[2021-06-12 04:49] LABS: BUN/Creatinine Ratio 60 (6-26); Blood Urea Nitrogen 57 mg/dL (8-23); Calcium 7.9 mg/dL (8.6-10.3); Carbon Dioxide 27 mEq/L (23-29); Chloride 110 mEq/L (98-107); Glucose 447 mg/dL (70-105); Magnesium 2.1 mg/dL (1.6-2.6); Osmolality,Calculated 333 (280-300); Phosphorous 2.7 mg/dL (2.7-4.5); Potassium 4.7 mEq/L (3.5-5.1); Sodium 144 mEq/L (136-145); eGFR For African Americans > 60 (> 60); eGFR For Non-African Americans 58 (> 60)
[2021-06-12] MEDS: FentaNYL (PF) 1,000 MCG/100 ML IV.SOLN IVC SCH ×2 (05:14→14:32)
[2021-06-12] MEDS: cefTRIAXone 2,000 MG in 0.9 % Sodium Chloride Mini Bag 100 ML IVPB SCH (05:39)
[2021-06-12] MEDS: Pantoprazole 40 MG VIAL IVP SCH (05:39)
[2021-06-12] MEDS: Dexmedetomidine HCl 400 MCG/100 ML MLS IVC SCH ×3 (06:06→20:21)
[2021-06-12] MEDS: Budesonide/Formoterol 160/4.5 1 PUFF INH IH SCH ×2 (07:36→21:43)
[2021-06-12] MEDS: Docusate Oral Soln 100 MG/10 ML UDC GTUBE SCH ×2 (08:15→20:17)
[2021-06-12] MEDS: Topiramate 25 MG CAP.SPRINK PO SCH ×2 (08:15→20:19)
[2021-06-12] MEDS: Chlorhexidine Rinse 15 ML MOUTHWASH MM SCH ×2 (08:15→20:18)
[2021-06-12] MEDS: Pregabalin 75 MG CAPSULE PO SCH ×2 (08:15→20:18)
[2021-06-12] MEDS: Aspirin 81 MG TAB.CHEW GTUBE SCH (08:15)
[2021-06-12] MEDS: Insulin DETEMIR 100 UNIT/ML X5UNITS SUBQ SCH ×2 (09:26→20:25)
[2021-06-13] MEDS: FentaNYL (PF) 1,000 MCG/100 ML IV.SOLN IVC SCH ×3 (00:47→21:00)
[2021-06-13] MEDS: Dexmedetomidine HCl 400 MCG/100 ML MLS IVC SCH ×3 (02:25→12:08)
[2021-06-13] MEDS: Insulin LISPRO 300 UNITS/3 ML VIAL SUBQ SCH ×5 (03:38→21:49)
[2021-06-13] MEDS: Artificial Tears SOLN 15 ML BOTTLE BOTH EYES SCH ×5 (03:38→21:49)
[2021-06-13 03:40] LABS: Hemoglobin 7.4 g/dL (11.5-15.4); Immature Granulocytes % 0.3 % (0-4); Red Cell Distribution Width 18.4 % (11.5-14.5)
[2021-06-13] MEDS: Ipratropium/Albuterol Neb 3 ML IH SCH ×4 (03:41→20:29)
[2021-06-13 03:42] LABS: Eosinophils % 0.3 %; Hematocrit 25.7 % (35.3-44.9); Lymphocytes # 0.6 K/mcL (0.6-4.6); Mean Corpuscular HGB Conc 28.8 g/dL (31.6-35.5); Mean Corpuscular Hemoglobin 26.8 pg (28.0-33.3); Mean Corpuscular Volume 93.1 fL (83.0-100.0); Mean Platelet Volume 12.8 fL (9.4-12.4); Monocytes # 0.4 K/mcL (0.0-1.3); Monocytes % 6.4 %; Neutrophils # 5.6 K/mcL (1.6-8.9); Platelet Count 125 K/mcL (140-400); Red Blood Count 2.76 M/mcL (3.82-4.97); White Blood Count 6.7 K/mcL (4.3-11.1)
[2021-06-13 03:53] LABS: Alanine Aminotransferase 55 Units/L (7-52); Albumin 2.4 g/dL (3.5-5.7); Albumin/Globulin Ratio 0.8 (1.1-2.2); Alkaline Phosphatase 56 Units/L (34-104); Aspartate Amino Transferase 41 Units/L (13-39); BUN/Creatinine Ratio 70 (6-26); Bilirubin,Total 0.3 mg/dL (0.3-1.0); Blood Urea Nitrogen 53 mg/dL (8-23); Calcium 7.9 mg/dL (8.6-10.3); Carbon Dioxide 32 mEq/L (23-29); Chloride 115 mEq/L (98-107); Globulin 3.1 g/dL (2.4-3.5); Glucose 194 mg/dL (70-105); Osmolality,Calculated 326 (280-300); Potassium 4.3 mEq/L (3.5-5.1); Sodium 148 mEq/L (136-145); Total Protein 5.5 g/dL (6.4-8.9); eGFR For African Americans > 60 (> 60); eGFR For Non-African Americans > 60 (> 60)
[2021-06-13] MEDS: cefTRIAXone 2,000 MG in 0.9 % Sodium Chloride Mini Bag 100 ML IVPB SCH (05:05)
[2021-06-13 05:30] LABS: ABG Base Excess 5 mEq/L (-2 to 3); ABG HCO3 31 mEq/L (21-27); ABG Oxygen Saturation 95 % (95-98); ABG PCO2 49 mmHg (35-45); ABG PH 7.41 pH Units (7.32-7.45); ABG PO2 77 mmHg (85-104); ABG TCO2 32 mEq/L (20-26); Blood Gas VT 420 cc
[2021-06-13] MEDS: Budesonide/Formoterol 160/4.5 1 PUFF INH IH SCH ×2 (07:33→20:30)
[2021-06-13] MEDS ORDERED: Pantoprazole 40 MG VIAL IVP SCH (09:00)
[2021-06-13] MEDS ORDERED: MethylPREDNISolone 40 MG/ML VIAL IVP SCH (09:00)
[2021-06-13] MEDS: Docusate Oral Soln 100 MG/10 ML UDC GTUBE SCH (09:18)
[2021-06-13] MEDS: Chlorhexidine Rinse 15 ML MOUTHWASH MM SCH (09:18)
[2021-06-13] MEDS: Pregabalin 75 MG CAPSULE PO SCH (09:19)
[2021-06-13] MEDS: Aspirin 81 MG TAB.CHEW GTUBE SCH (09:19)
[2021-06-13] MEDS: Topiramate 25 MG CAP.SPRINK PO SCH (09:19)
[2021-06-13] MEDS: Insulin DETEMIR 100 UNIT/ML X5UNITS SUBQ SCH ×2 (09:20→23:24)
[2021-06-13] MEDS ORDERED: *HR* LORazepam 2 MG/ML VIAL IVP PRN ×2 (12:46→20:16)
[2021-06-13] MEDS ORDERED: Ondansetron 4 MG/2 ML VIAL IVP PRN (12:46)
[2021-06-13] MEDS ORDERED: *HR* FentaNYL (PF) 100 MCG/2 ML VIAL IVP PRN ×2 (12:50→20:16)
[2021-06-13] MEDS ORDERED: Albuterol 2.5 MG/3 ML NEBULIZER IH PRN (20:16)
[2021-06-13] MEDS ORDERED: Artificial Tears SOLN 15 ML BOTTLE BOTH EYES PRN (20:16)
[2021-06-13] MEDS ORDERED: Insulin DETEMIR 100 UNIT/ML X5UNITS SUBQ SCH (21:00)
[2021-06-14] MEDS: Insulin LISPRO 300 UNITS/3 ML VIAL SUBQ SCH ×6 (00:15→20:05)
[2021-06-14] MEDS: Artificial Tears SOLN 15 ML BOTTLE BOTH EYES SCH ×6 (00:16→20:04)
[2021-06-14] MEDS: Ipratropium/Albuterol Neb 3 ML IH SCH ×4 (04:11→20:14)
[2021-06-14] MEDS ORDERED: cefTRIAXone 2,000 MG in 0.9 % Sodium Chloride Mini Bag 100 ML IVPB SCH (06:00)
[2021-06-14] MEDS: Insulin DETEMIR 100 UNIT/ML X5UNITS SUBQ SCH ×2 (08:14→20:05)
[2021-06-14] MEDS: Budesonide/Formoterol 160/4.5 1 PUFF INH IH SCH ×2 (08:25→20:14)
[2021-06-14] MEDS: Acetaminophen 325 MG TABLET PO PRN (12:34)
[2021-06-14] MEDS: levoFLOXacin 750 MG/150 ML 750 MG/150 ML BAG IVPB SCH (12:37)
[2021-06-14] MEDS: Metoprolol XL (24 HR) Succ 25 MG TAB.ER.24H PO SCH (12:47)
[2021-06-14] MEDS: FentaNYL (PF) 1,000 MCG/100 ML IV.SOLN IVC SCH (15:05)
[2021-06-14] MEDS ORDERED: Acetaminophen 325 MG TABLET PO ONE (16:12)
[2021-06-15] MEDS ORDERED: Acetaminophen IV 1,000 MG/100 ML BAG IVPB ONE (00:11)
[2021-06-15] MEDS: Insulin LISPRO 300 UNITS/3 ML VIAL SUBQ SCH ×6 (01:15→20:54)
[2021-06-15] MEDS: Artificial Tears SOLN 15 ML BOTTLE BOTH EYES SCH ×4 (01:16→10:56)
[2021-06-15] MEDS: Ipratropium/Albuterol Neb 3 ML IH SCH ×4 (04:16→20:22)
[2021-06-15] MEDS: levoFLOXacin 750 MG/150 ML 750 MG/150 ML BAG IVPB SCH (07:44)
[2021-06-15] MEDS: Metoprolol XL (24 HR) Succ 25 MG TAB.ER.24H PO SCH (07:45)
[2021-06-15] MEDS: Acetaminophen 325 MG TABLET PO PRN (07:45)
[2021-06-15] MEDS: Insulin DETEMIR 100 UNIT/ML X5UNITS SUBQ SCH ×2 (07:46→20:54)
[2021-06-15] MEDS: Aspirin Enteric Coated 81 MG Tablet PO SCH (07:46)
[2021-06-15] MEDS: Pantoprazole 40 MG VIAL IVP SCH ×2 (08:17→16:51)
[2021-06-15] MEDS ORDERED: Acetaminophen IV 1,000 MG/100 ML BAG IVPB SCH ×2 (09:30→12:00)
[2021-06-15 10:27] LABS: Basophils % 0.1 %; Hematocrit 31.7 % (35.3-44.9); Immature Granulocytes % 0.3 % (0-4); Lymphocytes # 0.4 K/mcL (0.6-4.6); Lymphocytes % 3.2 %; Mean Corpuscular Hemoglobin 25.9 pg (28.0-33.3); Mean Corpuscular Volume 89.3 fL (83.0-100.0); Mean Platelet Volume 12.4 fL (9.4-12.4); Monocytes # 0.9 K/mcL (0.0-1.3); Monocytes % 7.8 %; Platelet Count 132 K/mcL (140-400); Red Blood Count 3.55 M/mcL (3.82-4.97); Red Cell Distribution Width 19.4 % (11.5-14.5); Segmented Neutrophils % 88.6 %
[2021-06-15] MEDS: Budesonide/Formoterol 160/4.5 1 PUFF INH IH SCH ×2 (10:30→20:22)
[2021-06-15] MEDS: Acetaminophen IV 1,000 MG/100 ML BAG IVPB PRN (10:32)
[2021-06-15 10:41] LABS: BUN/Creatinine Ratio 40 (6-26); Blood Urea Nitrogen 38 mg/dL (8-23); Calcium 8.2 mg/dL (8.6-10.3); Carbon Dioxide 23 mEq/L (23-29); Chloride 115 mEq/L (98-107); Glucose 263 mg/dL (70-105); Neutrophils # 10.6 K/mcL (1.6-8.9); Osmolality,Calculated 326 (280-300); Potassium 3.2 mEq/L (3.5-5.1); Sodium 149 mEq/L (136-145); eGFR For African Americans > 60 (> 60); eGFR For Non-African Americans 58 (> 60)
[2021-06-15 10:42] LABS: Hemoglobin 9.2 g/dL (11.5-15.4)
[2021-06-15] MEDS ORDERED: 0.9 % Sodium Chloride 500 ML IVC ONE (10:50)
[2021-06-15] MEDS ORDERED: Isovue-370 500 ML BOTTLE IVP ONE (10:51)
[2021-06-15] MEDS ORDERED: DAPTOmycin 750 MG in 0.9 % Sodium Chloride 100 ML IVPB SCH (12:00)
[2021-06-15] MEDS ORDERED: DAPTOmycin 500 MG in 0.9 % Sodium Chloride 100 ML IVPB SCH (12:00)
[2021-06-15] MEDS ORDERED: Albuterol 2.5 MG/3 ML NEBULIZER IH PRN (13:06)
[2021-06-15] MEDS ORDERED: Dextrose Gel 15 GM/37.5 ML TUBE PO PRN ×2 (13:54)
[2021-06-15] MEDS ORDERED: *HR* Dextrose 50 % in Water (Syg) 50 ML SYRINGE IVP PRN (13:54)
[2021-06-15] MEDS ORDERED: D5% in Water 1,000 ML IVC PRN (13:54)
[2021-06-15] MEDS: Vancomycin 1,250 MG/262.5 ML IV.SOLN IVPB SCH (14:23)
[2021-06-15] MEDS: Cefepime HCl 2,000 MG in Water for inj. (sterile) 10 ML IVP SCH ×2 (15:05→16:50)
[2021-06-15] MEDS ORDERED: Cefepime HCl 2,000 MG in 0.9 % Sodium Chloride Mini Bag 100 ML IVPB SCH (16:00)
[2021-06-15] MEDS ORDERED: Cefepime HCl 1,000 MG in Water for inj. (sterile) 10 ML IVP SCH (16:00)
[2021-06-16] MEDS: Insulin LISPRO 300 UNITS/3 ML VIAL SUBQ SCH ×6 (00:27→21:05)
[2021-06-16 02:27] LABS: Basophils % 0.1 %; Hematocrit 30.4 % (35.3-44.9); Hemoglobin 8.9 g/dL (11.5-15.4); Immature Granulocytes % 0.2 % (0-4); Lymphocytes # 0.5 K/mcL (0.6-4.6); Lymphocytes % 3.7 %; Mean Corpuscular HGB Conc 29.3 g/dL (31.6-35.5); Mean Corpuscular Hemoglobin 26.3 pg (28.0-33.3); Mean Corpuscular Volume 89.9 fL (83.0-100.0); Monocytes # 0.8 K/mcL (0.0-1.3); Monocytes % 6.3 %; Neutrophils # 11.6 K/mcL (1.6-8.9); Platelet Count 120 K/mcL (140-400); Red Blood Count 3.38 M/mcL (3.82-4.97); Red Cell Distribution Width 19.8 % (11.5-14.5); Segmented Neutrophils % 89.7 %; White Blood Count 12.9 K/mcL (4.3-11.1)
[2021-06-16 02:46] LABS: BUN/Creatinine Ratio 39 (6-26); Blood Urea Nitrogen 35 mg/dL (8-23); Calcium 8.1 mg/dL (8.6-10.3); Carbon Dioxide 23 mEq/L (23-29); Chloride 120 mEq/L (98-107); Glucose 148 mg/dL (70-105); Osmolality,Calculated 325 (280-300); Sodium 152 mEq/L (136-145); eGFR For African Americans > 60 (> 60); eGFR For Non-African Americans > 60 (> 60)
[2021-06-16] MEDS: Ipratropium/Albuterol Neb 3 ML IH SCH ×4 (03:51→21:05)
[2021-06-16] MEDS: Pantoprazole 40 MG VIAL IVP SCH ×2 (05:22→16:36)
[2021-06-16] MEDS: Cefepime HCl 2,000 MG in Water for inj. (sterile) 10 ML IVP SCH ×2 (05:25→16:35)
[2021-06-16 07:47] LABS: Magnesium 1.9 mg/dL (1.6-2.6)
[2021-06-16] MEDS: Insulin DETEMIR 100 UNIT/ML X5UNITS SUBQ SCH ×2 (08:31→21:18)
[2021-06-16] MEDS: Aspirin Enteric Coated 81 MG Tablet PO SCH (08:31)
[2021-06-16] MEDS: Metoprolol XL (24 HR) Succ 25 MG TAB.ER.24H PO SCH (08:31)
[2021-06-16] MEDS: Budesonide/Formoterol 160/4.5 1 PUFF INH IH SCH ×2 (09:00→21:05)
[2021-06-16] MEDS: Acetaminophen IV 1,000 MG/100 ML BAG IVPB PRN (11:33)
[2021-06-16] MEDS: hydrOXYzine pamoate 25 MG CAPSULE PO SCH ×2 (11:39→21:18)
[2021-06-16] MEDS ORDERED: D5% in Water 1,000 ML IVC SCH (11:45)
[2021-06-16] MEDS ORDERED: E-Z-PAQUE (BARIUM SULF) SUSP 1 BOTTLE PO ONE (13:01)
[2021-06-16] MEDS ORDERED: E-Z-HD (BARIUM SULF) SUSPENSION PO ONE (13:01)
[2021-06-16] MEDS: Vancomycin 1,250 MG/262.5 ML IV.SOLN IVPB SCH (14:07)
[2021-06-16] MEDS: Furosemide 20 MG/2 ML VIAL IVP SCH (15:19)
[2021-06-16] MEDS: *HR* HYDROcodone/Acet 5/325 mg TABLET PO PRN (18:19)
[2021-06-17] MEDS: Ipratropium/Albuterol Neb 3 ML IH SCH ×4 (03:54→21:32)
[2021-06-17] MEDS: *HR* HYDROcodone/Acet 5/325 mg TABLET PO PRN (05:36)
[2021-06-17] MEDS: Cefepime HCl 2,000 MG in Water for inj. (sterile) 10 ML IVP SCH (05:36)
[2021-06-17] MEDS: Pantoprazole 40 MG VIAL IVP SCH ×2 (06:13→17:31)
[2021-06-17 07:00] LABS: Hematocrit 29.9 % (35.3-44.9); Hemoglobin 8.9 g/dL (11.5-15.4); Immature Granulocytes % 0.3 % (0-4); Lymphocytes # 0.5 K/mcL (0.6-4.6); Lymphocytes % 4.5 %; Mean Corpuscular HGB Conc 29.8 g/dL (31.6-35.5); Mean Corpuscular Volume 90.6 fL (83.0-100.0); Monocytes # 0.7 K/mcL (0.0-1.3); Monocytes % 6.7 %; Neutrophils # 9.2 K/mcL (1.6-8.9); Platelet Count 104 K/mcL (140-400); Segmented Neutrophils % 88.5 %; White Blood Count 10.4 K/mcL (4.3-11.1)
[2021-06-17 07:17] LABS: BUN/Creatinine Ratio 32 (6-26); Blood Urea Nitrogen 32 mg/dL (8-23); Calcium 7.8 mg/dL (8.6-10.3); Carbon Dioxide 22 mEq/L (23-29); Chloride 119 mEq/L (98-107); Glucose 255 mg/dL (70-105); Magnesium 1.9 mg/dL (1.6-2.6); Osmolality,Calculated 328 (280-300); Sodium 151 mEq/L (136-145); eGFR For African Americans > 60 (> 60); eGFR For Non-African Americans 56 (> 60)
[2021-06-17] MEDS ORDERED: Potassium Chloride Elixir 20 MEQ/15 ML UDC PO ONE (07:49)
[2021-06-17] MEDS: Metoprolol XL (24 HR) Succ 25 MG TAB.ER.24H PO SCH (09:36)
[2021-06-17] MEDS: Acetaminophen 325 MG TABLET PO PRN ×2 (09:36→17:31)
[2021-06-17] MEDS: Furosemide 20 MG/2 ML VIAL IVP SCH (09:36)
[2021-06-17] MEDS: Aspirin Enteric Coated 81 MG Tablet PO SCH (09:36)
[2021-06-17] MEDS: Insulin LISPRO 300 UNITS/3 ML VIAL SUBQ SCH ×3 (09:37→16:12)
[2021-06-17] MEDS: Insulin DETEMIR 100 UNIT/ML X5UNITS SUBQ SCH ×2 (09:37→20:41)
[2021-06-17] MEDS: D5% in Water 1,000 ML IVC SCH (11:04)
[2021-06-17] MEDS: Budesonide/Formoterol 160/4.5 1 PUFF INH IH SCH ×2 (11:07→21:32)
[2021-06-17 12:03] LABS: Adenovirus Not Detected (Not Detect); Bordetella Pertussis Not Detected (Not Detect); Chlamydophila pneumoniae Not Detected (Not Detect); Coronavirus 229E Not Detected (Not Detect); Coronavirus HKU1 Not Detected (Not Detect); Coronavirus NL63 Not Detected (Not Detect); Coronavirus OC43 Not Detected (Not Detect); Human Metapneumovirus Not Detected (Not Detect); Human Rhinovirus/Enterovirus Not Detected (Not Detect); Influenza A Subtype 2009 H1 Not Detected (Not Detect); Influenza B Not Detected (Not Detect); Mycoplasma pneumoniae Not Detected (Not Detect); Parainfluenza Virus 1 Not Detected (Not Detect); Parainfluenza Virus 2 Not Detected (Not Detect); Parainfluenza Virus 3 Not Detected (Not Detect); Parainfluenza Virus 4 Not Detected (Not Detect); Respiratory Syncytial Virus Not Detected (Not Detect); SARS-CoV-2 Not Detected (Not Detect)
[2021-06-17 12:59] LABS: INR 1.6; Prothrombin Time 18.3 Seconds (9.4-12.1)
[2021-06-17] MEDS: Lactulose Oral Soln 20 GM/30 ML UDC PO SCH ×2 (14:00→20:41)
[2021-06-17] MEDS: Vancomycin 1,250 MG/262.5 ML IV.SOLN IVPB SCH (14:00)
[2021-06-17] MEDS: Cefepime HCl 2,000 MG in 0.9 % Sodium Chloride Mini Bag 100 ML IVPB SCH (17:31)
[2021-06-18] MEDS: D5% in Water 1,000 ML IVC SCH (01:30)
[2021-06-18] MEDS: Ipratropium/Albuterol Neb 3 ML IH SCH ×4 (04:11→22:12)
[2021-06-18 04:49] LABS: Hematocrit 28.7 % (35.3-44.9); Hemoglobin 8.5 g/dL (11.5-15.4); Immature Platelets 9.8 % (1.1-6.1); Mean Corpuscular HGB Conc 29.6 g/dL (31.6-35.5); Mean Corpuscular Volume 91.1 fL (83.0-100.0); Platelet Count 76 K/mcL (140-400); Red Blood Count 3.15 M/mcL (3.82-4.97); White Blood Count 8.6 K/mcL (4.3-11.1)
[2021-06-18 05:00] LABS: BUN/Creatinine Ratio 31 (6-26); Blood Urea Nitrogen 28 mg/dL (8-23); Calcium 7.8 mg/dL (8.6-10.3); Carbon Dioxide 24 mEq/L (23-29); Chloride 120 mEq/L (98-107); Glucose 159 mg/dL (70-105); Magnesium 1.9 mg/dL (1.6-2.6); Osmolality,Calculated 323 (280-300); Phosphorous 1.4 mg/dL (2.7-4.5); Potassium 2.6 mEq/L (3.5-5.1); Sodium 152 mEq/L (136-145); eGFR For African Americans > 60 (> 60); eGFR For Non-African Americans > 60 (> 60)
[2021-06-18] MEDS: Pantoprazole 40 MG VIAL IVP SCH ×2 (05:30→17:51)
[2021-06-18] MEDS: Cefepime HCl 2,000 MG in 0.9 % Sodium Chloride Mini Bag 100 ML IVPB SCH (05:31)
[2021-06-18] MEDS: Insulin LISPRO 300 UNITS/3 ML VIAL SUBQ SCH ×5 (05:34→20:41)
[2021-06-18] MEDS: Lactulose Oral Soln 20 GM/30 ML UDC PO SCH ×2 (07:55→20:50)
[2021-06-18] MEDS: Aspirin Enteric Coated 81 MG Tablet PO SCH (07:55)
[2021-06-18] MEDS: Metoprolol XL (24 HR) Succ 25 MG TAB.ER.24H PO SCH (07:55)
[2021-06-18] MEDS: *HR* HYDROcodone/Acet 5/325 mg TABLET PO PRN ×2 (07:55→17:51)
[2021-06-18] MEDS: Insulin DETEMIR 100 UNIT/ML X5UNITS SUBQ SCH ×2 (07:56→20:42)
[2021-06-18 08:55] LABS: INR 1.5; Prothrombin Time 17.2 Seconds (9.4-12.1)
[2021-06-18] MEDS: Budesonide/Formoterol 160/4.5 1 PUFF INH IH SCH ×2 (10:16→22:12)
[2021-06-18 14:12] LABS: RBC,Peritoneal Fluid < 2000 RBC/mcL
[2021-06-18 14:44] LABS: Appearance of Peritoneal Fl CLEAR (Clear)
[2021-06-18] MEDS: Vancomycin 1,750 MG/517.5 ML IV.SOLN IVPB SCH (15:41)
[2021-06-18 16:00] LABS: Glucose,CSF 83 mg/dL (40-70); Total Protein,CSF 50 mg/dL (15-45)
[2021-06-18 16:12] LABS: Red Blood Cell,CSF 21000 RBC/mcL
[2021-06-18] MEDS: cefTRIAXone 2,000 MG in 0.9 % Sodium Chloride Mini Bag 100 ML IVPB SCH (17:51)
[2021-06-18 18:04] LABS: Appearance,CSF Hazy (Clear)
[2021-06-19] MEDS: Ipratropium/Albuterol Neb 3 ML IH SCH ×4 (04:14→20:57)
[2021-06-19] MEDS: cefTRIAXone 2,000 MG in 0.9 % Sodium Chloride Mini Bag 100 ML IVPB SCH ×2 (05:03→17:38)
[2021-06-19] MEDS: Pantoprazole 40 MG VIAL IVP SCH ×2 (05:03→17:37)
[2021-06-19 05:05] LABS: Basophils % 0.1 %
[2021-06-19 05:07] LABS: Eosinophils % 0.4 %; Hematocrit 28.6 % (35.3-44.9); Hemoglobin 8.4 g/dL (11.5-15.4); Immature Granulocytes % 0.6 % (0-4); Immature Platelets 12.3 % (1.1-6.1); Lymphocytes # 0.4 K/mcL (0.6-4.6); Lymphocytes % 3.9 %; Mean Corpuscular HGB Conc 29.4 g/dL (31.6-35.5); Mean Corpuscular Hemoglobin 26.8 pg (28.0-33.3); Mean Corpuscular Volume 91.4 fL (83.0-100.0); Mean Platelet Volume 12.8 fL (9.4-12.4); Monocytes # 0.3 K/mcL (0.0-1.3); Monocytes % 2.7 %; Red Blood Count 3.13 M/mcL (3.82-4.97); Segmented Neutrophils % 92.3 %; White Blood Count 10.7 K/mcL (4.3-11.1)
[2021-06-19 05:18] LABS: BUN/Creatinine Ratio 30 (6-26); Blood Urea Nitrogen 20 mg/dL (8-23); Calcium 7.6 mg/dL (8.6-10.3); Carbon Dioxide 23 mEq/L (23-29); Chloride 122 mEq/L (98-107); Glucose 102 mg/dL (70-105); Osmolality,Calculated 319 (280-300); Potassium 3.1 mEq/L (3.5-5.1); Sodium 153 mEq/L (136-145); eGFR For African Americans > 60 (> 60); eGFR For Non-African Americans > 60 (> 60)
[2021-06-19 05:21] LABS: Neutrophils # 9.9 K/mcL (1.6-8.9); Platelet Count 61 K/mcL (140-400)
[2021-06-19] MEDS: Insulin LISPRO 300 UNITS/3 ML VIAL SUBQ SCH ×5 (07:36→20:06)
[2021-06-19] MEDS: Aspirin Enteric Coated 81 MG Tablet PO SCH (07:49)
[2021-06-19] MEDS: Lactulose Oral Soln 20 GM/30 ML UDC PO SCH ×2 (07:49→20:06)
[2021-06-19] MEDS: Metoprolol XL (24 HR) Succ 25 MG TAB.ER.24H PO SCH (07:49)
[2021-06-19] MEDS: D5% in Water 1,000 ML IVC SCH ×2 (07:57→17:49)
[2021-06-19] MEDS: Insulin DETEMIR 100 UNIT/ML X5UNITS SUBQ SCH ×2 (08:19→20:08)
[2021-06-19] MEDS: Budesonide/Formoterol 160/4.5 1 PUFF INH IH SCH ×2 (10:38→20:57)
[2021-06-19] MEDS: Ampicillin 2,000 MG in 0.9 % Sodium Chloride Mini Bag 100 ML IVPB SCH ×4 (12:39→23:45)
[2021-06-19] MEDS: Vancomycin 1,750 MG/517.5 ML IV.SOLN IVPB SCH (15:01)
[2021-06-20] MEDS: Ipratropium/Albuterol Neb 3 ML IH SCH ×4 (04:04→20:09)
[2021-06-20] MEDS: Ampicillin 2,000 MG in 0.9 % Sodium Chloride Mini Bag 100 ML IVPB SCH ×5 (04:24→19:40)
[2021-06-20] MEDS: Pantoprazole 40 MG VIAL IVP SCH (05:30)
[2021-06-20] MEDS: cefTRIAXone 2,000 MG in 0.9 % Sodium Chloride Mini Bag 100 ML IVPB SCH ×2 (05:30→17:11)
[2021-06-20] MEDS: D5% in Water 1,000 ML IVC SCH ×3 (05:35→12:45)
[2021-06-20] MEDS: Budesonide/Formoterol 160/4.5 1 PUFF INH IH SCH ×2 (08:43→20:09)
[2021-06-20] MEDS: Lactulose Oral Soln 20 GM/30 ML UDC PO SCH ×2 (09:43→21:28)
[2021-06-20] MEDS: Aspirin Enteric Coated 81 MG Tablet PO SCH (09:43)
[2021-06-20] MEDS: Insulin LISPRO 300 UNITS/3 ML VIAL SUBQ SCH ×4 (09:44→21:13)
[2021-06-20] MEDS: Metoprolol XL (24 HR) Succ 25 MG TAB.ER.24H PO SCH (09:44)
[2021-06-20] MEDS: Insulin DETEMIR 100 UNIT/ML X5UNITS SUBQ SCH ×2 (09:45→21:30)
[2021-06-20 11:32] LABS: BUN/Creatinine Ratio 21 (6-26); Blood Urea Nitrogen 15 mg/dL (8-23); Calcium 7.3 mg/dL (8.6-10.3); Carbon Dioxide 19 mEq/L (23-29); Chloride 115 mEq/L (98-107); Glucose 345 mg/dL (70-105); Osmolality,Calculated 313 (280-300); Potassium 2.7 mEq/L (3.5-5.1); Sodium 144 mEq/L (136-145); eGFR For African Americans > 60 (> 60); eGFR For Non-African Americans > 60 (> 60)
[2021-06-20] MEDS: Vancomycin 1,750 MG/517.5 ML IV.SOLN IVPB SCH (15:59)
[2021-06-21] MEDS: Ampicillin 2,000 MG in 0.9 % Sodium Chloride Mini Bag 100 ML IVPB SCH ×6 (00:19→20:35)
[2021-06-21] MEDS: Ipratropium/Albuterol Neb 3 ML IH SCH ×4 (04:07→20:57)
[2021-06-21 04:42] LABS: Hemoglobin 8.5 g/dL (11.5-15.4); Mean Corpuscular Volume 90.7 fL (83.0-100.0); White Blood Count 9.7 K/mcL (4.3-11.1)
[2021-06-21 04:44] LABS: Hematocrit 29.3 % (35.3-44.9); Immature Platelets 15.6 % (1.1-6.1); Mean Corpuscular Hemoglobin 26.3 pg (28.0-33.3); Red Blood Count 3.23 M/mcL (3.82-4.97); Red Cell Distribution Width 19.9 % (11.5-14.5)
[2021-06-21 05:06] LABS: Platelet Count 65 K/mcL (140-400)
[2021-06-21 05:07] LABS: BUN/Creatinine Ratio 21 (6-26); Blood Urea Nitrogen 12 mg/dL (8-23); Calcium 7.7 mg/dL (8.6-10.3); Carbon Dioxide 19 mEq/L (23-29); Chloride 117 mEq/L (98-107); Glucose 111 mg/dL (70-105); Osmolality,Calculated 298 (280-300); Potassium 3.2 mEq/L (3.5-5.1); Sodium 144 mEq/L (136-145); eGFR For African Americans > 60 (> 60); eGFR For Non-African Americans > 60 (> 60)
[2021-06-21] MEDS: cefTRIAXone 2,000 MG in 0.9 % Sodium Chloride Mini Bag 100 ML IVPB SCH ×2 (06:10→18:19)
[2021-06-21] MEDS ORDERED: Magnesium Oxide 400 MG TABLET PO ONE (06:46)
[2021-06-21] MEDS: Insulin LISPRO 300 UNITS/3 ML VIAL SUBQ SCH ×4 (08:11→20:36)
[2021-06-21] MEDS: Metoprolol XL (24 HR) Succ 25 MG TAB.ER.24H PO SCH (09:02)
[2021-06-21] MEDS: Aspirin Enteric Coated 81 MG Tablet PO SCH (09:02)
[2021-06-21] MEDS: Lactulose Oral Soln 20 GM/30 ML UDC PO SCH ×2 (09:03→20:35)
[2021-06-21] MEDS: Insulin DETEMIR 100 UNIT/ML X5UNITS SUBQ SCH (09:10)
[2021-06-21] MEDS: Budesonide/Formoterol 160/4.5 1 PUFF INH IH SCH ×2 (10:23→20:56)
[2021-06-21] MEDS: *HR* HYDROcodone/Acet 5/325 mg TABLET PO PRN (12:21)
[2021-06-21] MEDS: Vancomycin 1,750 MG/517.5 ML IV.SOLN IVPB SCH (15:35)
[2021-06-22] MEDS: Ampicillin 2,000 MG in 0.9 % Sodium Chloride Mini Bag 100 ML IVPB SCH ×6 (00:06→20:50)
[2021-06-22 02:37] LABS: Basophils % 0.1 %; Eosinophils # 0.2 K/mcL (0.0-0.6); Eosinophils % 2.7 %; Hematocrit 29.3 % (35.3-44.9); Hemoglobin 8.3 g/dL (11.5-15.4); Immature Granulocytes % 0.5 % (0-4); Immature Platelets 14.4 % (1.1-6.1); Lymphocytes # 0.5 K/mcL (0.6-4.6); Lymphocytes % 6.3 %; Mean Corpuscular HGB Conc 28.3 g/dL (31.6-35.5); Mean Corpuscular Hemoglobin 26.2 pg (28.0-33.3); Mean Corpuscular Volume 92.4 fL (83.0-100.0); Monocytes # 0.3 K/mcL (0.0-1.3); Monocytes % 3.8 %; Neutrophils # 6.5 K/mcL (1.6-8.9); Red Blood Count 3.17 M/mcL (3.82-4.97); Red Cell Distribution Width 19.9 % (11.5-14.5); Segmented Neutrophils % 86.6 %; White Blood Count 7.5 K/mcL (4.3-11.1)
[2021-06-22 02:49] LABS: BUN/Creatinine Ratio 20 (6-26); Blood Urea Nitrogen 12 mg/dL (8-23); Calcium 7.7 mg/dL (8.6-10.3); Carbon Dioxide 19 mEq/L (23-29); Chloride 116 mEq/L (98-107); Glucose 157 mg/dL (70-105); Magnesium 1.6 mg/dL (1.6-2.6); Osmolality,Calculated 305 (280-300); Phosphorous 1.5 mg/dL (2.7-4.5); Potassium 3.4 mEq/L (3.5-5.1); Sodium 146 mEq/L (136-145); eGFR For African Americans > 60 (> 60); eGFR For Non-African Americans > 60 (> 60)
[2021-06-22 02:59] LABS: Platelet Count 66 K/mcL (140-400)
[2021-06-22 03:23] LABS: Anisocytosis 1+ (Not Present); Platelet Estimate Decreased (Normal)
[2021-06-22] MEDS: Ipratropium/Albuterol Neb 3 ML IH SCH ×4 (03:59→21:06)
[2021-06-22] MEDS: cefTRIAXone 2,000 MG in 0.9 % Sodium Chloride Mini Bag 100 ML IVPB SCH ×2 (05:14→17:41)
[2021-06-22] MEDS: Metoprolol XL (24 HR) Succ 25 MG TAB.ER.24H PO SCH (07:51)
[2021-06-22] MEDS: Aspirin Enteric Coated 81 MG Tablet PO SCH (07:51)
[2021-06-22] MEDS: Insulin LISPRO 300 UNITS/3 ML VIAL SUBQ SCH ×4 (08:04→21:01)
[2021-06-22] MEDS: Lactulose Oral Soln 20 GM/30 ML UDC PO SCH ×2 (08:37→20:51)
[2021-06-22] MEDS: D5% in Water 1,000 ML IVC SCH ×2 (10:09→22:37)
[2021-06-22] MEDS: Budesonide/Formoterol 160/4.5 1 PUFF INH IH SCH ×2 (10:52→21:06)
[2021-06-22] MEDS ORDERED: Potassium Phosphate 44 MEQ in 0.9 % Sodium Chloride 250 ML IVPB ONE (11:33)
[2021-06-22] MEDS: *HR* HYDROcodone/Acet 5/325 mg TABLET PO PRN (12:30)
[2021-06-23] MEDS: Ampicillin 2,000 MG in 0.9 % Sodium Chloride Mini Bag 100 ML IVPB SCH ×3 (01:13→08:21)
[2021-06-23] MEDS: *HR* HYDROcodone/Acet 5/325 mg TABLET PO PRN ×4 (03:00→21:12)
[2021-06-23] MEDS: Ipratropium/Albuterol Neb 3 ML IH SCH ×4 (04:11→20:45)
[2021-06-23 05:47] LABS: Basophils % 0.1 %; Eosinophils % 2.8 %; Immature Granulocytes % 0.4 % (0-4); Lymphocytes % 6.9 %; Red Cell Distribution Width 19.7 % (11.5-14.5)
[2021-06-23 05:49] LABS: Eosinophils # 0.2 K/mcL (0.0-0.6); Hematocrit 28.9 % (35.3-44.9); Hemoglobin 8.7 g/dL (11.5-15.4); Immature Platelets 13.2 % (1.1-6.1); Lymphocytes # 0.5 K/mcL (0.6-4.6); Mean Corpuscular HGB Conc 30.1 g/dL (31.6-35.5); Mean Corpuscular Hemoglobin 27.4 pg (28.0-33.3); Mean Corpuscular Volume 90.9 fL (83.0-100.0); Mean Platelet Volume 12.9 fL (9.4-12.4); Monocytes # 0.3 K/mcL (0.0-1.3); Monocytes % 4.4 %; Neutrophils # 5.8 K/mcL (1.6-8.9); Red Blood Count 3.18 M/mcL (3.82-4.97); Segmented Neutrophils % 85.4 %; White Blood Count 6.8 K/mcL (4.3-11.1)
[2021-06-23 05:51] LABS: Platelet Count 75 K/mcL (140-400)
[2021-06-23] MEDS: cefTRIAXone 2,000 MG in 0.9 % Sodium Chloride Mini Bag 100 ML IVPB SCH ×2 (05:53→17:17)
[2021-06-23 06:16] LABS: BUN/Creatinine Ratio 16 (6-26); Blood Urea Nitrogen 9 mg/dL (8-23); Calcium 7.7 mg/dL (8.6-10.3); Carbon Dioxide 19 mEq/L (23-29); Chloride 111 mEq/L (98-107); Glucose 322 mg/dL (70-105); Osmolality,Calculated 295 (280-300); Potassium 3.5 mEq/L (3.5-5.1); Sodium 137 mEq/L (136-145); eGFR For African Americans > 60 (> 60); eGFR For Non-African Americans > 60 (> 60)
[2021-06-23] MEDS: Insulin LISPRO 300 UNITS/3 ML VIAL SUBQ SCH ×4 (08:15→20:36)
[2021-06-23] MEDS: Lactulose Oral Soln 20 GM/30 ML UDC PO SCH ×2 (08:19→20:35)
[2021-06-23] MEDS: Metoprolol XL (24 HR) Succ 25 MG TAB.ER.24H PO SCH (08:20)
[2021-06-23] MEDS: Aspirin Enteric Coated 81 MG Tablet PO SCH (08:21)
[2021-06-23] MEDS: D5% in Water 1,000 ML IVC SCH (08:48)
[2021-06-23] MEDS: Budesonide/Formoterol 160/4.5 1 PUFF INH IH SCH ×2 (10:27→20:44)
[2021-06-24 02:30] LABS: Hemoglobin 8.3 g/dL (11.5-15.4)
[2021-06-24 02:31] LABS: Eosinophils # 0.2 K/mcL (0.0-0.6); Eosinophils % 3.1 %; Hematocrit 29.5 % (35.3-44.9); Immature Granulocytes % 0.6 % (0-4); Lymphocytes # 0.5 K/mcL (0.6-4.6); Lymphocytes % 8.3 %; Mean Corpuscular HGB Conc 28.1 g/dL (31.6-35.5); Mean Corpuscular Hemoglobin 25.9 pg (28.0-33.3); Mean Corpuscular Volume 92.2 fL (83.0-100.0); Monocytes # 0.3 K/mcL (0.0-1.3); Monocytes % 4.8 %; Neutrophils # 4.5 K/mcL (1.6-8.9); Red Cell Distribution Width 19.3 % (11.5-14.5); Segmented Neutrophils % 83.2 %; White Blood Count 5.4 K/mcL (4.3-11.1)
[2021-06-24 02:47] LABS: BUN/Creatinine Ratio 15 (6-26); Blood Urea Nitrogen 9 mg/dL (8-23); Calcium 7.7 mg/dL (8.6-10.3); Carbon Dioxide 20 mEq/L (23-29); Chloride 116 mEq/L (98-107); Glucose 226 mg/dL (70-105); Osmolality,Calculated 292 (280-300); Phosphorous 1.8 mg/dL (2.7-4.5); Potassium 3.4 mEq/L (3.5-5.1); Sodium 138 mEq/L (136-145); eGFR For African Americans > 60 (> 60); eGFR For Non-African Americans > 60 (> 60)
[2021-06-24 02:48] LABS: Platelet Count 70 K/mcL (140-400)
[2021-06-24 03:17] LABS: Anisocytosis 1+ (Not Present); Platelet Estimate Decreased (Normal)
[2021-06-24] MEDS: Ipratropium/Albuterol Neb 3 ML IH SCH ×4 (03:29→20:47)
[2021-06-24] MEDS: cefTRIAXone 2,000 MG in 0.9 % Sodium Chloride Mini Bag 100 ML IVPB SCH ×2 (05:33→16:25)
[2021-06-24] MEDS ORDERED: Potassium Phosphate 44 MEQ in 0.9 % Sodium Chloride 250 ML IVPB ONE (07:29)
[2021-06-24] MEDS: Aspirin Enteric Coated 81 MG Tablet PO SCH (09:00)
[2021-06-24] MEDS: Folic Acid 1 MG TABLET PO SCH (09:00)
[2021-06-24] MEDS: Insulin LISPRO 300 UNITS/3 ML VIAL SUBQ SCH ×4 (09:00→21:01)
[2021-06-24] MEDS: Metoprolol XL (24 HR) Succ 25 MG TAB.ER.24H PO SCH (09:00)
[2021-06-24] MEDS: Lactulose Oral Soln 20 GM/30 ML UDC PO SCH ×2 (09:00→18:25)
[2021-06-24 10:10] LABS: Magnesium 1.7 mg/dL (1.6-2.6)
[2021-06-24 10:48] LABS: Bilirubin,Urine Negative (Negative); Blood,Urine Small (Negative); Budding Yeast,Urine Many per hpf (None Seen); Clarity,Urine Ex.Turbid (Clear); Color,Urine Yellow (Yellow); Glucose,Urine (UA) >=1000 mg/dL (Normal); Ketones,Urine Trace mg/dL (Negative); Leukocyte Esterase,Urine Small (Negative); Nitrite,Urine Negative (Negative); Protein,Urine 100 mg/dL (Neg-Trace); RBC,Urine TNTC per hpf (0-3); Specific Gravity,Urine 1.027 (1.010-1.025); Urobilinogen,Urine Normal (Normal)
[2021-06-24] MEDS: Budesonide/Formoterol 160/4.5 1 PUFF INH IH SCH ×2 (11:03→20:46)
[2021-06-24] MEDS: *HR* HYDROcodone/Acet 5/325 mg TABLET PO PRN (16:25)
[2021-06-24] MEDS: Acetaminophen 325 MG TABLET PO PRN (21:01)
[2021-06-24] MEDS: Insulin DETEMIR 100 UNIT/ML X5UNITS SUBQ SCH (21:02)
[2021-06-25 02:47] LABS: Hemoglobin 8.3 g/dL (11.5-15.4)
[2021-06-25 02:49] LABS: Hematocrit 29.4 % (35.3-44.9); Immature Platelets 9.9 % (1.1-6.1); Mean Corpuscular HGB Conc 28.2 g/dL (31.6-35.5); Mean Corpuscular Hemoglobin 26.5 pg (28.0-33.3); Mean Corpuscular Volume 93.9 fL (83.0-100.0); Red Blood Count 3.13 M/mcL (3.82-4.97); Red Cell Distribution Width 19.5 % (11.5-14.5); White Blood Count 5.5 K/mcL (4.3-11.1)
[2021-06-25 02:51] LABS: Platelet Count 70 K/mcL (140-400)
[2021-06-25 03:05] LABS: Blood Urea Nitrogen 10 mg/dL (8-23); Calcium 7.9 mg/dL (8.6-10.3); Carbon Dioxide 22 mEq/L (23-29); Chloride 112 mEq/L (98-107); Glucose 302 mg/dL (70-105); Magnesium 1.6 mg/dL (1.6-2.6); Osmolality,Calculated 304 (280-300); Phosphorous 1.8 mg/dL (2.7-4.5); Potassium 3.7 mEq/L (3.5-5.1); Sodium 142 mEq/L (136-145)
[2021-06-25] MEDS: Vancomycin 1,500 MG/265 ML IV.SOLN IVPB SCH (03:21)
[2021-06-25 03:46] LABS: BUN/Creatinine Ratio 15 (6-26); eGFR For African Americans > 60 (> 60); eGFR For Non-African Americans > 60 (> 60)
[2021-06-25] MEDS: Ipratropium/Albuterol Neb 3 ML IH SCH ×5 (04:56→20:47)
[2021-06-25] MEDS: cefTRIAXone 2,000 MG in 0.9 % Sodium Chloride Mini Bag 100 ML IVPB SCH ×2 (06:01→17:07)
[2021-06-25] MEDS: Aspirin Enteric Coated 81 MG Tablet PO SCH (07:56)
[2021-06-25] MEDS: Folic Acid 1 MG TABLET PO SCH (07:56)
[2021-06-25] MEDS: Metoprolol XL (24 HR) Succ 25 MG TAB.ER.24H PO SCH (07:57)
[2021-06-25] MEDS: Insulin LISPRO 300 UNITS/3 ML VIAL SUBQ SCH ×4 (07:57→20:35)
[2021-06-25] MEDS: Lactulose Oral Soln 20 GM/30 ML UDC PO SCH ×2 (07:57→20:35)
[2021-06-25] MEDS: Budesonide/Formoterol 160/4.5 1 PUFF INH IH SCH ×2 (09:11→20:44)
[2021-06-25] MEDS ORDERED: E-Z-HD (BARIUM SULF) SUSPENSION PO ONE (12:44)
[2021-06-25] MEDS ORDERED: E-Z-PAQUE (BARIUM SULF) SUSP 1 BOTTLE PO ONE (12:44)
[2021-06-25] MEDS: Furosemide 20 MG TABLET PO SCH (13:57)
[2021-06-25] MEDS: *HR* HYDROcodone/Acet 5/325 mg TABLET PO PRN (20:34)
[2021-06-25] MEDS: Insulin DETEMIR 100 UNIT/ML X5UNITS SUBQ SCH (20:35)
[2021-06-26] MEDS: Vancomycin 1,500 MG/265 ML IV.SOLN IVPB SCH (03:16)
[2021-06-26] MEDS: Ipratropium/Albuterol Neb 3 ML IH SCH ×4 (04:11→20:25)
[2021-06-26 04:27] LABS: BUN/Creatinine Ratio 14 (6-26); Blood Urea Nitrogen 9 mg/dL (8-23); Carbon Dioxide 18 mEq/L (23-29); Chloride 110 mEq/L (98-107); Glucose 300 mg/dL (70-105); Osmolality,Calculated 296 (280-300); Potassium 3.9 mEq/L (3.5-5.1); Sodium 138 mEq/L (136-145); eGFR For African Americans > 60 (> 60); eGFR For Non-African Americans > 60 (> 60)
[2021-06-26] MEDS: cefTRIAXone 2,000 MG in 0.9 % Sodium Chloride Mini Bag 100 ML IVPB SCH ×2 (05:18→16:36)
[2021-06-26] MEDS: Metoprolol XL (24 HR) Succ 25 MG TAB.ER.24H PO SCH (09:25)
[2021-06-26] MEDS: Folic Acid 1 MG TABLET PO SCH (09:25)
[2021-06-26] MEDS: Lactulose Oral Soln 20 GM/30 ML UDC PO SCH ×2 (09:26→21:48)
[2021-06-26] MEDS: Aspirin Enteric Coated 81 MG Tablet PO SCH (09:26)
[2021-06-26] MEDS: Furosemide 20 MG TABLET PO SCH (09:26)
[2021-06-26] MEDS: Insulin LISPRO 300 UNITS/3 ML VIAL SUBQ SCH ×4 (09:27→21:49)
[2021-06-26] MEDS: Budesonide/Formoterol 160/4.5 1 PUFF INH IH SCH ×2 (11:45→20:25)
[2021-06-26] MEDS ORDERED: Insulin DETEMIR 100 UNIT/ML X5UNITS SUBQ SCH (21:00)
[2021-06-26] MEDS: *HR* HYDROcodone/Acet 5/325 mg TABLET PO PRN (21:48)
[2021-06-27 03:05] LABS: BUN/Creatinine Ratio 19 (6-26); Blood Urea Nitrogen 11 mg/dL (8-23); Carbon Dioxide 23 mEq/L (23-29); Chloride 106 mEq/L (98-107); Glucose 248 mg/dL (70-105); Osmolality,Calculated 294 (280-300); Potassium 3.5 mEq/L (3.5-5.1); Sodium 138 mEq/L (136-145); eGFR For African Americans > 60 (> 60); eGFR For Non-African Americans > 60 (> 60)
[2021-06-27] MEDS: Vancomycin 1,500 MG/265 ML IV.SOLN IVPB SCH (03:05)
[2021-06-27] MEDS: Ipratropium/Albuterol Neb 3 ML IH SCH ×4 (04:17→21:08)
[2021-06-27] MEDS: cefTRIAXone 2,000 MG in 0.9 % Sodium Chloride Mini Bag 100 ML IVPB SCH ×2 (05:12→17:15)
[2021-06-27] MEDS: Budesonide/Formoterol 160/4.5 1 PUFF INH IH SCH ×2 (09:51→21:09)
[2021-06-27] MEDS: Lactulose Oral Soln 20 GM/30 ML UDC PO SCH ×2 (09:53→20:56)
[2021-06-27] MEDS: Furosemide 20 MG TABLET PO SCH (09:53)
[2021-06-27] MEDS: Metoprolol XL (24 HR) Succ 25 MG TAB.ER.24H PO SCH (09:53)
[2021-06-27] MEDS: Aspirin Enteric Coated 81 MG Tablet PO SCH (09:53)
[2021-06-27] MEDS: Folic Acid 1 MG TABLET PO SCH (09:53)
[2021-06-27] MEDS: Insulin LISPRO 300 UNITS/3 ML VIAL SUBQ SCH ×4 (09:55→22:13)
[2021-06-27] MEDS: *HR* HYDROcodone/Acet 5/325 mg TABLET PO PRN (20:56)
[2021-06-27] MEDS: Insulin DETEMIR 100 UNIT/ML X5UNITS SUBQ SCH (22:13)
[2021-06-28] MEDS ORDERED: Vancomycin 1,750 MG/517.5 ML IV.SOLN IVPB SCH (03:00)
[2021-06-28] MEDS: *HR* HYDROcodone/Acet 5/325 mg TABLET PO PRN ×2 (03:49→11:30)
[2021-06-28] MEDS: Ipratropium/Albuterol Neb 3 ML IH SCH ×4 (04:06→23:16)
[2021-06-28 04:41] LABS: BUN/Creatinine Ratio 20 (6-26); Blood Urea Nitrogen 11 mg/dL (8-23); Calcium 7.9 mg/dL (8.6-10.3); Carbon Dioxide 24 mEq/L (23-29); Chloride 106 mEq/L (98-107); Glucose 221 mg/dL (70-105); Osmolality,Calculated 288 (280-300); Potassium 3.5 mEq/L (3.5-5.1); Sodium 136 mEq/L (136-145); eGFR For African Americans > 60 (> 60); eGFR For Non-African Americans > 60 (> 60)
[2021-06-28] MEDS: cefTRIAXone 2,000 MG in 0.9 % Sodium Chloride Mini Bag 100 ML IVPB SCH (04:59)
[2021-06-28] MEDS ORDERED: Ketorolac 30 MG/ML VIAL IVP ONE (05:15)
[2021-06-28] MEDS: Metoprolol XL (24 HR) Succ 25 MG TAB.ER.24H PO SCH (08:33)
[2021-06-28] MEDS: Folic Acid 1 MG TABLET PO SCH (08:33)
[2021-06-28] MEDS: Furosemide 20 MG TABLET PO SCH (08:33)
[2021-06-28] MEDS: Aspirin Enteric Coated 81 MG Tablet PO SCH (08:34)
[2021-06-28] MEDS: Lactulose Oral Soln 20 GM/30 ML UDC PO SCH ×2 (08:34→19:58)
[2021-06-28] MEDS: Insulin LISPRO 300 UNITS/3 ML VIAL SUBQ SCH ×4 (08:34→19:46)
[2021-06-28] MEDS: Budesonide/Formoterol 160/4.5 1 PUFF INH IH SCH ×2 (08:57→23:21)
[2021-06-28] MEDS: Fluticasone Propionate Nasal 50 MCG/SPRAY BOTTLE NS SCH (11:27)
[2021-06-28 12:06] LABS: HCV Quant Interpretation NOT DETECTED (Not Detected); HCV Quant Log NOT DETECTED log IU/mL
[2021-06-28] MEDS: Insulin DETEMIR 100 UNIT/ML X5UNITS SUBQ SCH (19:58)
[2021-06-29] MEDS: Ipratropium/Albuterol Neb 3 ML IH SCH (04:16)
[2021-06-29 04:36] LABS: BUN/Creatinine Ratio 20 (6-26); Blood Urea Nitrogen 11 mg/dL (8-23); Calcium 7.9 mg/dL (8.6-10.3); Carbon Dioxide 22 mEq/L (23-29); Chloride 104 mEq/L (98-107); Glucose 256 mg/dL (70-105); Osmolality,Calculated 292 (280-300); Potassium 3.7 mEq/L (3.5-5.1); Sodium 137 mEq/L (136-145); eGFR For African Americans > 60 (> 60); eGFR For Non-African Americans > 60 (> 60)
[2021-06-29] MEDS: Ondansetron 4 MG/2 ML VIAL IVP PRN (05:25)
[2021-06-29] MEDS: Metoprolol XL (24 HR) Succ 25 MG TAB.ER.24H PO SCH (08:51)
[2021-06-29] MEDS: Folic Acid 1 MG TABLET PO SCH (08:51)
[2021-06-29] MEDS: Furosemide 20 MG TABLET PO SCH (08:51)
[2021-06-29] MEDS: Aspirin Enteric Coated 81 MG Tablet PO SCH (08:51)
[2021-06-29] MEDS: Insulin LISPRO 300 UNITS/3 ML VIAL SUBQ SCH ×4 (08:55→20:59)
[2021-06-29] MEDS: Fluticasone Propionate Nasal 50 MCG/SPRAY BOTTLE NS SCH (09:00)
[2021-06-29] MEDS: Lactulose Oral Soln 20 GM/30 ML UDC PO SCH ×2 (09:01→20:59)
[2021-06-29] MEDS ORDERED: Ipratropium/Albuterol Neb 3 ML IH PRN (09:44)
[2021-06-29] MEDS: Budesonide/Formoterol 160/4.5 1 PUFF INH IH SCH ×2 (10:19→20:20)
[2021-06-29] MEDS ORDERED: Morphine Sulfate 2 MG/ML SYRINGE IVP ONE (15:05)
[2021-06-29] MEDS: Insulin DETEMIR 100 UNIT/ML X5UNITS SUBQ SCH (20:59)
[2021-06-30 06:15] LABS: Hemoglobin 8.4 g/dL (11.5-15.4)
[2021-06-30 06:17] LABS: Hematocrit 28.1 % (35.3-44.9); Immature Platelets 5.2 % (1.1-6.1); Mean Corpuscular HGB Conc 29.9 g/dL (31.6-35.5); Mean Corpuscular Hemoglobin 26.8 pg (28.0-33.3); Mean Corpuscular Volume 89.8 fL (83.0-100.0); Mean Platelet Volume 10.6 fL (9.4-12.4); Red Blood Count 3.13 M/mcL (3.82-4.97); Red Cell Distribution Width 18.7 % (11.5-14.5); White Blood Count 4.9 K/mcL (4.3-11.1)
[2021-06-30 06:37] LABS: BUN/Creatinine Ratio 20 (6-26); Blood Urea Nitrogen 12 mg/dL (8-23); Calcium 7.9 mg/dL (8.6-10.3); Carbon Dioxide 25 mEq/L (23-29); Chloride 105 mEq/L (98-107); Glucose 271 mg/dL (70-105); Osmolality,Calculated 293 (280-300); Potassium 3.5 mEq/L (3.5-5.1); Sodium 137 mEq/L (136-145); eGFR For African Americans > 60 (> 60); eGFR For Non-African Americans > 60 (> 60)
[2021-06-30 06:39] LABS: Albumin 2.6 g/dL (3.5-5.7); Albumin/Globulin Ratio 0.8 (1.1-2.2); Bilirubin,Direct 0.1 mg/dL (0.0-0.2); Bilirubin,Indirect 0.3 mg/dL (0.0-1.0); Bilirubin,Total 0.4 mg/dL (0.3-1.0); Globulin 3.2 g/dL (2.4-3.5); Magnesium 1.6 mg/dL (1.6-2.6); Phosphorous 1.1 mg/dL (2.7-4.5); Total Protein 5.8 g/dL (6.4-8.9)
[2021-06-30] MEDS: Budesonide/Formoterol 160/4.5 1 PUFF INH IH SCH ×2 (07:43→20:31)
[2021-06-30] MEDS: Insulin LISPRO 300 UNITS/3 ML VIAL SUBQ SCH ×5 (08:06→20:20)
[2021-06-30] MEDS: Metoprolol XL (24 HR) Succ 25 MG TAB.ER.24H PO SCH (08:07)
[2021-06-30] MEDS: Folic Acid 1 MG TABLET PO SCH (08:07)
[2021-06-30] MEDS: Spironolactone 12.5 MG TABLET PO SCH (08:07)
[2021-06-30] MEDS: Lactulose Oral Soln 20 GM/30 ML UDC PO SCH ×2 (08:07→20:18)
[2021-06-30] MEDS: Aspirin Enteric Coated 81 MG Tablet PO SCH (08:07)
[2021-06-30] MEDS: Furosemide 40 MG/4 ML VIAL IVP SCH (08:08)
[2021-06-30] MEDS: Fluticasone Propionate Nasal 50 MCG/SPRAY BOTTLE NS SCH (08:10)
[2021-06-30] MEDS ORDERED: Magnesium Sulfate 1 GM/102 ML PIGGYBACK IVPB ONE (10:47)
[2021-06-30] MEDS: Insulin DETEMIR 100 UNIT/ML X5UNITS SUBQ SCH (20:19)
[2021-07-01 03:01] LABS: Hemoglobin 8.1 g/dL (11.5-15.4); Mean Corpuscular Hemoglobin 26.3 pg (28.0-33.3); Mean Corpuscular Volume 87.7 fL (83.0-100.0); Mean Platelet Volume 11.5 fL (9.4-12.4); Red Blood Count 3.08 M/mcL (3.82-4.97); Red Cell Distribution Width 18.6 % (11.5-14.5); White Blood Count 5.1 K/mcL (4.3-11.1)
[2021-07-01 03:02] LABS: Platelet Count 73 K/mcL (140-400)
[2021-07-01 03:21] LABS: BUN/Creatinine Ratio 20 (6-26); Blood Urea Nitrogen 11 mg/dL (8-23); Calcium 7.8 mg/dL (8.6-10.3); Carbon Dioxide 27 mEq/L (23-29); Chloride 104 mEq/L (98-107); Glucose 245 mg/dL (70-105); Osmolality,Calculated 294 (280-300); Potassium 3.1 mEq/L (3.5-5.1); Sodium 138 mEq/L (136-145); eGFR For African Americans > 60 (> 60); eGFR For Non-African Americans > 60 (> 60)
[2021-07-01] MEDS: Budesonide/Formoterol 160/4.5 1 PUFF INH IH SCH ×2 (07:43→20:46)
[2021-07-01] MEDS: Spironolactone 12.5 MG TABLET PO SCH (08:07)
[2021-07-01] MEDS: Aspirin Enteric Coated 81 MG Tablet PO SCH (08:07)
[2021-07-01] MEDS: Folic Acid 1 MG TABLET PO SCH (08:07)
[2021-07-01] MEDS: Metoprolol XL (24 HR) Succ 25 MG TAB.ER.24H PO SCH (08:08)
[2021-07-01] MEDS: Furosemide 40 MG/4 ML VIAL IVP SCH (08:09)
[2021-07-01] MEDS: Fluticasone Propionate Nasal 50 MCG/SPRAY BOTTLE NS SCH (08:09)
[2021-07-01] MEDS: Insulin LISPRO 300 UNITS/3 ML VIAL SUBQ SCH ×7 (08:17→19:55)
[2021-07-01] MEDS: Lactulose Oral Soln 20 GM/30 ML UDC PO SCH ×2 (08:18→19:46)
[2021-07-01 08:46] LABS: VBG Ionized Calcium 1.13 mmol/L (1.15-1.35)
[2021-07-01 09:16] LABS: BUN/Creatinine Ratio 19 (6-26); Blood Urea Nitrogen 11 mg/dL (8-23); Carbon Dioxide 26 mEq/L (23-29); Chloride 103 mEq/L (98-107); Glucose 339 mg/dL (70-105); Osmolality,Calculated 295 (280-300); Potassium 3.3 mEq/L (3.5-5.1); Sodium 136 mEq/L (136-145); Troponin I 0.04 ng/mL (< 0.04); eGFR For African Americans > 60 (> 60); eGFR For Non-African Americans > 60 (> 60)
[2021-07-01] MEDS: Calcium Gluconate 1gm/50mL 1 GM/50 ML BAG IVPB SCH ×2 (12:40→13:49)
[2021-07-01] MEDS ORDERED: Naloxone 0.4 MG/ML INJ IVP PRN (19:07)
[2021-07-01] MEDS ORDERED: Ketorolac 30 MG/ML VIAL IM PRN (19:07)
[2021-07-01] MEDS: Insulin DETEMIR 100 UNIT/ML X5UNITS SUBQ SCH (19:46)
[2021-07-02 03:17] LABS: Basophils % 0.2 %; Eosinophils # 0.1 K/mcL (0.0-0.6); Eosinophils % 2.5 %; Hematocrit 25.8 % (35.3-44.9); Hemoglobin 7.6 g/dL (11.5-15.4); Immature Granulocytes % 0.4 % (0-4); Immature Platelets 4.4 % (1.1-6.1); Lymphocytes # 0.8 K/mcL (0.6-4.6); Lymphocytes % 16.5 %; Mean Corpuscular HGB Conc 29.5 g/dL (31.6-35.5); Mean Corpuscular Hemoglobin 26.2 pg (28.0-33.3); Mean Platelet Volume 11.2 fL (9.4-12.4); Monocytes # 0.3 K/mcL (0.0-1.3); Neutrophils # 3.5 K/mcL (1.6-8.9); Red Cell Distribution Width 18.5 % (11.5-14.5); Segmented Neutrophils % 73.4 %; White Blood Count 4.7 K/mcL (4.3-11.1)
[2021-07-02 03:19] LABS: Platelet Count 71 K/mcL (140-400)
[2021-07-02 03:32] LABS: BUN/Creatinine Ratio 21 (6-26); Blood Urea Nitrogen 12 mg/dL (8-23); Carbon Dioxide 28 mEq/L (23-29); Chloride 102 mEq/L (98-107); Glucose 281 mg/dL (70-105); Osmolality,Calculated 290 (280-300); Potassium 3.9 mEq/L (3.5-5.1); Sodium 135 mEq/L (136-145); eGFR For African Americans > 60 (> 60); eGFR For Non-African Americans > 60 (> 60)
[2021-07-02] MEDS: Budesonide/Formoterol 160/4.5 1 PUFF INH IH SCH ×2 (08:21→19:52)
[2021-07-02] MEDS ORDERED: Spironolactone 25 MG TABLET PO SCH (09:00)
[2021-07-02] MEDS ORDERED: Furosemide 40 MG/4 ML VIAL IVP SCH (09:00)
[2021-07-02] MEDS: Metoprolol XL (24 HR) Succ 25 MG TAB.ER.24H PO SCH (10:17)
[2021-07-02] MEDS: Aspirin Enteric Coated 81 MG Tablet PO SCH (10:17)
[2021-07-02] MEDS: Folic Acid 1 MG TABLET PO SCH (10:17)
[2021-07-02] MEDS: Lactulose Oral Soln 20 GM/30 ML UDC PO SCH ×2 (10:17→21:15)
[2021-07-02] MEDS: Insulin LISPRO 300 UNITS/3 ML VIAL SUBQ SCH ×7 (11:08→21:15)
[2021-07-02] MEDS: Furosemide 40 MG TABLET PO SCH ×2 (12:36→16:41)
[2021-07-02] MEDS: Insulin DETEMIR 100 UNIT/ML X5UNITS SUBQ SCH ×2 (12:36→21:15)
[2021-07-02] MEDS: Fluticasone Propionate Nasal 50 MCG/SPRAY BOTTLE NS SCH (12:44)
[2021-07-02] MEDS ORDERED: Furosemide 20 MG/2 ML VIAL IVP ONE (16:26)
[2021-07-03 04:17] LABS: Basophils % 0.2 %; Immature Granulocytes % 0.4 % (0-4); White Blood Count 4.9 K/mcL (4.3-11.1)
[2021-07-03 04:19] LABS: Eosinophils # 0.1 K/mcL (0.0-0.6); Eosinophils % 2.1 %; Hematocrit 25.5 % (35.3-44.9); Hemoglobin 7.5 g/dL (11.5-15.4); Immature Platelets 4.9 % (1.1-6.1); Lymphocytes # 0.7 K/mcL (0.6-4.6); Lymphocytes % 14.2 %; Mean Corpuscular HGB Conc 29.4 g/dL (31.6-35.5); Mean Corpuscular Hemoglobin 26.1 pg (28.0-33.3); Mean Corpuscular Volume 88.9 fL (83.0-100.0); Mean Platelet Volume 11.4 fL (9.4-12.4); Monocytes # 0.4 K/mcL (0.0-1.3); Monocytes % 7.2 %; Neutrophils # 3.7 K/mcL (1.6-8.9); Red Blood Count 2.87 M/mcL (3.82-4.97); Red Cell Distribution Width 18.3 % (11.5-14.5); Segmented Neutrophils % 75.9 %
[2021-07-03 04:25] LABS: Platelet Count 75 K/mcL (140-400)
[2021-07-03 04:36] LABS: BUN/Creatinine Ratio 21 (6-26); Blood Urea Nitrogen 12 mg/dL (8-23); Carbon Dioxide 32 mEq/L (23-29); Chloride 98 mEq/L (98-107); Glucose 180 mg/dL (70-105); Osmolality,Calculated 282 (280-300); Potassium 3.7 mEq/L (3.5-5.1); Sodium 134 mEq/L (136-145); eGFR For African Americans > 60 (> 60); eGFR For Non-African Americans > 60 (> 60)
[2021-07-03] MEDS: Budesonide/Formoterol 160/4.5 1 PUFF INH IH SCH ×2 (07:30→20:23)
[2021-07-03] MEDS: Folic Acid 1 MG TABLET PO SCH (09:29)
[2021-07-03] MEDS: Aspirin Enteric Coated 81 MG Tablet PO SCH (09:29)
[2021-07-03] MEDS: Metoprolol XL (24 HR) Succ 25 MG TAB.ER.24H PO SCH (09:29)
[2021-07-03] MEDS: Furosemide 40 MG TABLET PO SCH ×2 (09:30→17:44)
[2021-07-03] MEDS: Insulin LISPRO 300 UNITS/3 ML VIAL SUBQ SCH ×7 (09:30→21:53)
[2021-07-03] MEDS: Fluticasone Propionate Nasal 50 MCG/SPRAY BOTTLE NS SCH (09:31)
[2021-07-03] MEDS: Lactulose Oral Soln 20 GM/30 ML UDC PO SCH ×2 (09:31→20:24)
[2021-07-03] MEDS: Insulin DETEMIR 100 UNIT/ML X5UNITS SUBQ SCH ×2 (09:35→23:12)
[2021-07-03] MEDS: *HR* OxyCODONE Immed Rel 5 MG TABLET PO PRN (20:23)
[2021-07-04 04:25] LABS: Basophils % 0.3 %; Immature Granulocytes % 0.5 % (0-4)
[2021-07-04 04:26] LABS: Eosinophils # 0.1 K/mcL (0.0-0.6); Eosinophils % 2.2 %; Hematocrit 26.9 % (35.3-44.9); Lymphocytes # 0.8 K/mcL (0.6-4.6); Lymphocytes % 13.8 %; Mean Corpuscular HGB Conc 29.7 g/dL (31.6-35.5); Mean Corpuscular Hemoglobin 26.1 pg (28.0-33.3); Mean Corpuscular Volume 87.6 fL (83.0-100.0); Mean Platelet Volume 10.9 fL (9.4-12.4); Monocytes # 0.4 K/mcL (0.0-1.3); Monocytes % 7.4 %; Neutrophils # 4.4 K/mcL (1.6-8.9); Red Blood Count 3.07 M/mcL (3.82-4.97); Segmented Neutrophils % 75.8 %; White Blood Count 5.8 K/mcL (4.3-11.1)
[2021-07-04 04:28] LABS: Platelet Count 82 K/mcL (140-400)
[2021-07-04 04:34] LABS: BUN/Creatinine Ratio 23 (6-26); Blood Urea Nitrogen 12 mg/dL (8-23); Calcium 8.2 mg/dL (8.6-10.3); Carbon Dioxide 33 mEq/L (23-29); Chloride 96 mEq/L (98-107); Glucose 107 mg/dL (70-105); Osmolality,Calculated 276 (280-300); Potassium 3.7 mEq/L (3.5-5.1); Sodium 133 mEq/L (136-145); eGFR For African Americans > 60 (> 60); eGFR For Non-African Americans > 60 (> 60)
[2021-07-04] MEDS: Budesonide/Formoterol 160/4.5 1 PUFF INH IH SCH ×2 (07:29→20:22)
[2021-07-04] MEDS: Metoprolol XL (24 HR) Succ 25 MG TAB.ER.24H PO SCH (08:50)
[2021-07-04] MEDS: Folic Acid 1 MG TABLET PO SCH (08:50)
[2021-07-04] MEDS: Furosemide 40 MG TABLET PO SCH ×2 (08:50→17:41)
[2021-07-04] MEDS: Insulin LISPRO 300 UNITS/3 ML VIAL SUBQ SCH ×7 (08:50→21:21)
[2021-07-04] MEDS: Fluticasone Propionate Nasal 50 MCG/SPRAY BOTTLE NS SCH (08:51)
[2021-07-04] MEDS: Aspirin Enteric Coated 81 MG Tablet PO SCH (08:51)
[2021-07-04] MEDS: Lactulose Oral Soln 20 GM/30 ML UDC PO SCH ×2 (08:51→21:20)
[2021-07-04] MEDS: Ondansetron 4 MG/2 ML VIAL IVP PRN (09:06)
[2021-07-04] MEDS: Insulin DETEMIR 100 UNIT/ML X5UNITS SUBQ SCH ×2 (09:06→21:22)
[2021-07-04] MEDS: *HR* OxyCODONE Immed Rel 5 MG TABLET PO PRN (09:06)
[2021-07-04] MEDS: Ipratropium/Albuterol Neb 3 ML IH SCH ×3 (14:58→20:22)
[2021-07-04 17:13] LABS: Iron 27 mcg/dL (50-170)
[2021-07-04 17:28] LABS: Ferritin 41 ng/mL (10-120)
[2021-07-04 17:45] LABS: % Iron Saturation 10 % (15-50); Transferrin 187 mg/dL (203-362)
[2021-07-05] MEDS: Ipratropium/Albuterol Neb 3 ML IH SCH ×4 (04:13→20:23)
[2021-07-05] MEDS: Budesonide/Formoterol 160/4.5 1 PUFF INH IH SCH ×2 (07:41→20:22)
[2021-07-05] MEDS: Insulin LISPRO 300 UNITS/3 ML VIAL SUBQ SCH ×7 (08:09→20:26)
[2021-07-05] MEDS: Folic Acid 1 MG TABLET PO SCH (08:19)
[2021-07-05] MEDS: Lactulose Oral Soln 20 GM/30 ML UDC PO SCH ×2 (08:20→20:25)
[2021-07-05] MEDS: Aspirin Enteric Coated 81 MG Tablet PO SCH (08:20)
[2021-07-05] MEDS: Furosemide 40 MG TABLET PO SCH ×2 (08:20→17:18)
[2021-07-05] MEDS: Metoprolol XL (24 HR) Succ 25 MG TAB.ER.24H PO SCH (08:20)
[2021-07-05] MEDS: Insulin DETEMIR 100 UNIT/ML X5UNITS SUBQ SCH ×2 (08:21→20:27)
[2021-07-05] MEDS: Fluticasone Propionate Nasal 50 MCG/SPRAY BOTTLE NS SCH (11:25)
[2021-07-05 11:51] LABS: Hematocrit 26.1 % (35.3-44.9); Mean Corpuscular Volume 89.7 fL (83.0-100.0); Red Blood Count 2.91 M/mcL (3.82-4.97)
[2021-07-05 11:53] LABS: Hemoglobin 7.5 g/dL (11.5-15.4); Immature Platelets 5.4 % (1.1-6.1); Mean Corpuscular HGB Conc 28.7 g/dL (31.6-35.5); Mean Corpuscular Hemoglobin 25.8 pg (28.0-33.3); Mean Platelet Volume 11.5 fL (9.4-12.4); Red Cell Distribution Width 17.9 % (11.5-14.5); White Blood Count 7.5 K/mcL (4.3-11.1)
[2021-07-05 12:12] LABS: BUN/Creatinine Ratio 20 (6-26); Blood Urea Nitrogen 13 mg/dL (8-23); Calcium 8.5 mg/dL (8.6-10.3); Carbon Dioxide 36 mEq/L (23-29); Chloride 94 mEq/L (98-107); Glucose 114 mg/dL (70-105); Osmolality,Calculated 277 (280-300); Potassium 3.9 mEq/L (3.5-5.1); Sodium 133 mEq/L (136-145); eGFR For African Americans > 60 (> 60); eGFR For Non-African Americans > 60 (> 60)
[2021-07-06 01:19] LABS: Mean Platelet Volume 10.9 fL (9.4-12.4)
[2021-07-06 01:20] LABS: Hematocrit 23.9 % (35.3-44.9); Hemoglobin 7.3 g/dL (11.5-15.4); Immature Platelets 5.4 % (1.1-6.1); Mean Corpuscular HGB Conc 30.5 g/dL (31.6-35.5); Mean Corpuscular Volume 88.5 fL (83.0-100.0); Red Blood Count 2.7 M/mcL (3.82-4.97); Red Cell Distribution Width 17.8 % (11.5-14.5); White Blood Count 6.4 K/mcL (4.3-11.1)
[2021-07-06 01:38] LABS: BUN/Creatinine Ratio 26 (6-26); Blood Urea Nitrogen 17 mg/dL (8-23); Calcium 8.4 mg/dL (8.6-10.3); Carbon Dioxide 36 mEq/L (23-29); Chloride 92 mEq/L (98-107); Glucose 221 mg/dL (70-105); Osmolality,Calculated 284 (280-300); Potassium 3.9 mEq/L (3.5-5.1); Sodium 133 mEq/L (136-145); eGFR For African Americans > 60 (> 60); eGFR For Non-African Americans > 60 (> 60)
[2021-07-06] MEDS: Ipratropium/Albuterol Neb 3 ML IH SCH ×4 (03:33→20:07)
[2021-07-06] MEDS: Budesonide/Formoterol 160/4.5 1 PUFF INH IH SCH ×2 (07:36→20:07)
[2021-07-06] MEDS: Insulin LISPRO 300 UNITS/3 ML VIAL SUBQ SCH ×7 (08:30→21:13)
[2021-07-06] MEDS: Folic Acid 1 MG TABLET PO SCH (09:51)
[2021-07-06] MEDS: Furosemide 40 MG TABLET PO SCH ×2 (09:51→17:16)
[2021-07-06] MEDS: Metoprolol XL (24 HR) Succ 25 MG TAB.ER.24H PO SCH (09:51)
[2021-07-06] MEDS: Aspirin Enteric Coated 81 MG Tablet PO SCH (09:51)
[2021-07-06] MEDS: Insulin DETEMIR 100 UNIT/ML X5UNITS SUBQ SCH ×2 (09:52→21:14)
[2021-07-06] MEDS: Fluticasone Propionate Nasal 50 MCG/SPRAY BOTTLE NS SCH (09:52)
[2021-07-06] MEDS: Lactulose Oral Soln 20 GM/30 ML UDC PO SCH ×2 (09:52→20:07)
[2021-07-07] MEDS: Ipratropium/Albuterol Neb 3 ML IH SCH ×4 (03:51→20:18)
[2021-07-07 06:42] LABS: Hematocrit 23.5 % (35.3-44.9)
[2021-07-07 06:44] LABS: Hemoglobin 6.6 g/dL (11.5-15.4); Immature Platelets 5.5 % (1.1-6.1); Mean Corpuscular HGB Conc 28.1 g/dL (31.6-35.5); Mean Corpuscular Hemoglobin 25.3 pg (28.0-33.3); Mean Platelet Volume 11.6 fL (9.4-12.4); Red Blood Count 2.61 M/mcL (3.82-4.97); Red Cell Distribution Width 17.6 % (11.5-14.5); White Blood Count 5.7 K/mcL (4.3-11.1)
[2021-07-07 07:03] LABS: BUN/Creatinine Ratio 28 (6-26); Blood Urea Nitrogen 18 mg/dL (8-23); Calcium 8.6 mg/dL (8.6-10.3); Carbon Dioxide 36 mEq/L (23-29); Chloride 93 mEq/L (98-107); Glucose 191 mg/dL (70-105); Osmolality,Calculated 283 (280-300); Potassium 3.9 mEq/L (3.5-5.1); Sodium 133 mEq/L (136-145); eGFR For African Americans > 60 (> 60); eGFR For Non-African Americans > 60 (> 60)
[2021-07-07] MEDS: Budesonide/Formoterol 160/4.5 1 PUFF INH IH SCH ×2 (07:46→20:18)
[2021-07-07] MEDS: Insulin LISPRO 300 UNITS/3 ML VIAL SUBQ SCH ×7 (08:23→21:31)
[2021-07-07] MEDS: Metoprolol XL (24 HR) Succ 25 MG TAB.ER.24H PO SCH (08:24)
[2021-07-07] MEDS: Fluticasone Propionate Nasal 50 MCG/SPRAY BOTTLE NS SCH (08:24)
[2021-07-07] MEDS: Furosemide 40 MG TABLET PO SCH ×2 (08:25→17:32)
[2021-07-07] MEDS: Aspirin Enteric Coated 81 MG Tablet PO SCH (08:25)
[2021-07-07] MEDS: Folic Acid 1 MG TABLET PO SCH (08:25)
[2021-07-07] MEDS: Lactulose Oral Soln 20 GM/30 ML UDC PO SCH ×2 (08:25→21:30)
[2021-07-07] MEDS: Insulin DETEMIR 100 UNIT/ML X5UNITS SUBQ SCH ×2 (08:30→21:31)
[2021-07-07] MEDS ORDERED: 0.9 % Sodium Chloride 250 ML ONE (10:42)
[2021-07-07 10:52] LABS: Hematocrit 23.2 % (35.3-44.9); Hemoglobin 6.7 g/dL (11.5-15.4)
[2021-07-07] MEDS ORDERED: *HR* LORazepam 0.5 MG TABLET PO ONE (14:33)
[2021-07-07 15:21] LABS: Hematocrit 26.5 % (35.3-44.9); Hemoglobin 7.7 g/dL (11.5-15.4)
[2021-07-07] MEDS: Saline Nasal Spray 44 ML BOTTLE NS PRN (18:37)
[2021-07-08] MEDS: Ipratropium/Albuterol Neb 3 ML IH SCH ×2 (04:13→07:45)
[2021-07-08 06:28] LABS: Hematocrit 24.7 % (35.3-44.9); Hemoglobin 7.3 g/dL (11.5-15.4); Mean Corpuscular HGB Conc 29.6 g/dL (31.6-35.5); Mean Corpuscular Hemoglobin 26.4 pg (28.0-33.3); Mean Corpuscular Volume 89.2 fL (83.0-100.0); Mean Platelet Volume 11.4 fL (9.4-12.4); Platelet Count 123 K/mcL (140-400); Red Blood Count 2.77 M/mcL (3.82-4.97); Red Cell Distribution Width 17.3 % (11.5-14.5); White Blood Count 5.8 K/mcL (4.3-11.1)
[2021-07-08 06:42] LABS: BUN/Creatinine Ratio 31 (6-26); Blood Urea Nitrogen 22 mg/dL (8-23); Calcium 8.9 mg/dL (8.6-10.3); Carbon Dioxide 38 mEq/L (23-29); Chloride 93 mEq/L (98-107); Glucose 115 mg/dL (70-105); Osmolality,Calculated 284 (280-300); Potassium 4.1 mEq/L (3.5-5.1); Sodium 135 mEq/L (136-145); eGFR For African Americans > 60 (> 60); eGFR For Non-African Americans > 60 (> 60)
[2021-07-08] MEDS: Insulin LISPRO 300 UNITS/3 ML VIAL SUBQ SCH ×7 (07:34→21:11)
[2021-07-08] MEDS: Aspirin Enteric Coated 81 MG Tablet PO SCH (07:36)
[2021-07-08] MEDS: Insulin DETEMIR 100 UNIT/ML X5UNITS SUBQ SCH ×2 (07:36→19:52)
[2021-07-08] MEDS: Metoprolol XL (24 HR) Succ 25 MG TAB.ER.24H PO SCH (07:37)
[2021-07-08] MEDS: Furosemide 40 MG TABLET PO SCH ×2 (07:37→16:54)
[2021-07-08] MEDS: Lactulose Oral Soln 20 GM/30 ML UDC PO SCH ×2 (07:37→19:51)
[2021-07-08] MEDS: Folic Acid 1 MG TABLET PO SCH (07:37)
[2021-07-08] MEDS: Fluticasone Propionate Nasal 50 MCG/SPRAY BOTTLE NS SCH (07:38)
[2021-07-08] MEDS: Budesonide/Formoterol 160/4.5 1 PUFF INH IH SCH ×2 (07:46→20:23)
[2021-07-08] MEDS ORDERED: *HR* LORazepam 0.5 MG TABLET PO ONE (08:43)
[2021-07-08] MEDS: Saline Nasal Spray 44 ML BOTTLE NS PRN (09:28)
[2021-07-08] MEDS ORDERED: Ipratropium/Albuterol Neb 3 ML IH PRN (15:44)
[2021-07-08] MEDS ORDERED: hydrOXYzine pamoate 25 MG CAPSULE PO ONE (19:07)
[2021-07-08] MEDS: Topiramate 25 MG TABLET PO SCH (19:52)
[2021-07-09 05:08] LABS: Hematocrit 24.1 % (35.3-44.9); Hemoglobin 7.1 g/dL (11.5-15.4); Mean Corpuscular HGB Conc 29.5 g/dL (31.6-35.5); Mean Corpuscular Hemoglobin 26.4 pg (28.0-33.3); Mean Corpuscular Volume 89.6 fL (83.0-100.0); Mean Platelet Volume 11.2 fL (9.4-12.4); Platelet Count 143 K/mcL (140-400); Red Blood Count 2.69 M/mcL (3.82-4.97); Red Cell Distribution Width 17.5 % (11.5-14.5); White Blood Count 5.4 K/mcL (4.3-11.1)
[2021-07-09 05:25] LABS: BUN/Creatinine Ratio 35 (6-26); Blood Urea Nitrogen 25 mg/dL (8-23); Calcium 8.9 mg/dL (8.6-10.3); Carbon Dioxide 35 mEq/L (23-29); Chloride 96 mEq/L (98-107); Glucose 173 mg/dL (70-105); Osmolality,Calculated 285 (280-300); Potassium 3.8 mEq/L (3.5-5.1); Sodium 133 mEq/L (136-145); eGFR For African Americans > 60 (> 60); eGFR For Non-African Americans > 60 (> 60)
[2021-07-09] MEDS: Budesonide/Formoterol 160/4.5 1 PUFF INH IH SCH (07:38)
[2021-07-09] MEDS: Aspirin Enteric Coated 81 MG Tablet PO SCH (08:30)
[2021-07-09] MEDS: Insulin LISPRO 300 UNITS/3 ML VIAL SUBQ SCH ×7 (08:53→19:38)
[2021-07-09] MEDS: Insulin DETEMIR 100 UNIT/ML X5UNITS SUBQ SCH ×2 (08:53→19:41)
[2021-07-09] MEDS: Metoprolol XL (24 HR) Succ 25 MG TAB.ER.24H PO SCH (08:55)
[2021-07-09] MEDS: Furosemide 40 MG TABLET PO SCH ×2 (08:55→18:05)
[2021-07-09] MEDS: Folic Acid 1 MG TABLET PO SCH (08:55)
[2021-07-09] MEDS: Topiramate 25 MG TABLET PO SCH ×2 (08:55→19:37)
[2021-07-09] MEDS: Lactulose Oral Soln 20 GM/30 ML UDC PO SCH ×2 (08:57→19:43)
[2021-07-09] MEDS: Fluticasone Propionate Nasal 50 MCG/SPRAY BOTTLE NS SCH (08:57)
[2021-07-09 11:49] VITALS: TEMP 97.9
[2021-07-09 16:53] LABS: Adenovirus Not Detected (Not Detect); Bordetella Pertussis Not Detected (Not Detect); Chlamydophila pneumoniae Not Detected (Not Detect); Coronavirus 229E Not Detected (Not Detect); Coronavirus HKU1 Not Detected (Not Detect); Coronavirus NL63 Not Detected (Not Detect); Coronavirus OC43 Not Detected (Not Detect); Human Metapneumovirus Not Detected (Not Detect); Human Rhinovirus/Enterovirus Not Detected (Not Detect); Influenza A Subtype 2009 H1 Not Detected (Not Detect); Influenza B Not Detected (Not Detect); Mycoplasma pneumoniae Not Detected (Not Detect); Parainfluenza Virus 1 Not Detected (Not Detect); Parainfluenza Virus 2 Not Detected (Not Detect); Parainfluenza Virus 3 Not Detected (Not Detect); Parainfluenza Virus 4 Not Detected (Not Detect); Respiratory Syncytial Virus Not Detected (Not Detect); SARS-CoV-2 Not Detected (Not Detect)
[2021-07-09 17:04] VITALS: BP 115/55; PULSE 86; O2SAT 96
== END 2021-07-09 20:17 | DRG 870 ==
LOC: EMEROOARM 00:21 → ICNU 15:28 → SUATTDRO 19:48 → ICNU 20:39 → 2ANU 06-13 20:10
PROVIDERS: ADMIT Pediatrics; ATTEND Internal Medicine

== ENCOUNTER 2021-09-02 06:24 | Inpatient (IN) ==
[2021-09-02] MEDS ORDERED: 0.9 % Sodium Chloride 1,000 ML ONE ×2 (06:59→07:48)
[2021-09-02] MEDS ORDERED: *HR* Heparin 10,000 UNIT/10 ML VIAL ONE (07:48)
[2021-09-02] MEDS ORDERED: Heparin 1,000 UNITS/500 mL 500 ML ONE (07:48)
[2021-09-02] MEDS ORDERED: Nitroglycerin 1,000 MCG/5 ML VIAL IV ONE (07:49)
[2021-09-02] MEDS ORDERED: ISOVUE-370 200 ML INFUS..BTL ONE (07:49)
[2021-09-02] MEDS ORDERED: *HR* FentaNYL (PF) 100 MCG/2 ML VIAL ONE (07:50)
[2021-09-02] MEDS ORDERED: *HR* Midazolam HCl 2 MG/2 ML VIAL ONE (07:50)
[2021-09-02] MEDS ORDERED: Ondansetron 4 MG/2 ML VIAL IVP PRN (09:12)
[2021-09-02] MEDS ORDERED: Naloxone 0.4 MG/ML INJ IVP PRN (09:12)
[2021-09-02] MEDS ORDERED: Dextrose 4 GM Chewable Tablets PO PRN ×2 (10:15)
[2021-09-02] MEDS ORDERED: *HR* Dextrose 50 % in Water (Syg) 50 ML SYRINGE IVP PRN (10:15)
[2021-09-02] MEDS ORDERED: D5% in Water 1,000 ML IVC PRN (10:15)
[2021-09-02] MEDS: Iron Sucrose Complex 250 MG in 0.9 % Sodium Chloride 250 ML IVPB SCH (11:10)
[2021-09-02] MEDS ORDERED: Insulin LISPRO 300 UNITS/3 ML VIAL SUBQ SCH (12:00)
[2021-09-02 12:03] LABS: Basophils % 0.2 %; Eosinophils # 0.2 K/mcL (0.0-0.6); Eosinophils % 4.8 %; Hematocrit 17.4 % (35.3-44.9); Immature Granulocytes % 0.9 % (0-4); Lymphocytes % 22.6 %; Mean Corpuscular HGB Conc 28.2 g/dL (31.6-35.5); Mean Corpuscular Hemoglobin 24.1 pg (28.0-33.3); Mean Corpuscular Volume 85.7 fL (83.0-100.0); Mean Platelet Volume 13.9 fL (9.4-12.4); Monocytes # 0.3 K/mcL (0.0-1.3); Monocytes % 7.7 %; Neutrophils # 2.8 K/mcL (1.6-8.9); Nucleated Red Blood Cells 0.5 /100 WBC (0); Platelet Count 149 K/mcL (140-400); Red Blood Count 2.03 M/mcL (3.82-4.97); Red Cell Distribution Width 19.8 % (11.5-14.5); Segmented Neutrophils % 63.8 %; White Blood Count 4.4 K/mcL (4.3-11.1)
[2021-09-02 12:13] LABS: INR 1.2; Prothrombin Time 13.6 Seconds (9.4-12.1)
[2021-09-02 12:16] LABS: Hemoglobin 4.9 g/dL (11.5-15.4)
[2021-09-02 12:28] LABS: % Iron Saturation 3 % (15-50); Alanine Aminotransferase 7 Units/L (7-52); Albumin 2.9 g/dL (3.5-5.7); Alkaline Phosphatase 94 Units/L (34-104); Aspartate Amino Transferase 16 Units/L (13-39); BUN/Creatinine Ratio 13 (6-26); Bilirubin,Indirect 0.4 mg/dL (0.0-1.0); Bilirubin,Total 0.4 mg/dL (0.3-1.0); Blood Urea Nitrogen 14 mg/dL (8-23); Calcium 8.1 mg/dL (8.6-10.3); Carbon Dioxide 19 mEq/L (23-29); Chloride 115 mEq/L (98-107); Glucose 211 mg/dL (70-105); Iron 12 mcg/dL (50-170); Osmolality,Calculated 299 (280-300); Potassium 3.9 mEq/L (3.5-5.1); Sodium 141 mEq/L (136-145); Total Protein 5.9 g/dL (6.4-8.9); Transferrin 251 mg/dL (203-362); eGFR For African Americans > 60 (> 60); eGFR For Non-African Americans 50 (> 60)
[2021-09-02 12:37] LABS: Anisocytosis 2+ (Not Present); Hypochromasia Present (Not Present); Microcytosis Present (Not Present); Platelet Estimate Normal (Normal)
[2021-09-02 12:41] LABS: Ferritin 8 ng/mL (10-120)
[2021-09-02] MEDS ORDERED: 0.9 % Sodium Chloride 500 ML ONE (12:50)
[2021-09-02 13:42] LABS: Folate > 22.3 ng/mL (3.0-16.0); Vitamin B12 1008 pg/mL (250-1100)
[2021-09-02] MEDS: Insulin LISPRO 300 UNITS/3 ML VIAL SUBQ SCH ×2 (17:44→20:41)
[2021-09-02] MEDS ORDERED: Albuterol 2.5 MG/3 ML NEBULIZER IH PRN (18:23)
[2021-09-02] MEDS: Metoprolol XL (24 HR) Succ 50 MG TAB.ER.24H PO SCH (20:27)
[2021-09-02] MEDS: Loratadine 10 MG TABLET PO SCH (20:27)
[2021-09-02] MEDS: Topiramate 25 MG TABLET PO SCH (20:27)
[2021-09-02] MEDS: Pregabalin 75 MG CAPSULE PO SCH (20:27)
[2021-09-02 23:03] LABS: Hematocrit 23.2 % (35.3-44.9)
[2021-09-02 23:04] LABS: Hemoglobin 7.2 g/dL (11.5-15.4)
[2021-09-03 01:56] LABS: Basophils % 0.8 %; Eosinophils # 0.3 K/mcL (0.0-0.6); Eosinophils % 5.2 %; Hematocrit 23.5 % (35.3-44.9); Hemoglobin 7.1 g/dL (11.5-15.4); Lymphocytes # 0.6 K/mcL (0.6-4.6); Mean Corpuscular HGB Conc 30.2 g/dL (31.6-35.5); Mean Corpuscular Hemoglobin 24.9 pg (28.0-33.3); Mean Corpuscular Volume 82.5 fL (83.0-100.0); Mean Platelet Volume 11.6 fL (9.4-12.4); Monocytes # 0.4 K/mcL (0.0-1.3); Neutrophils # 3.8 K/mcL (1.6-8.9); Nucleated Red Blood Cells 1.6 /100 WBC (0); Platelet Count 133 K/mcL (140-400); Red Blood Count 2.85 M/mcL (3.82-4.97); Red Cell Distribution Width 17.7 % (11.5-14.5); White Blood Count 5.2 K/mcL (4.3-11.1)
[2021-09-03 02:13] LABS: BUN/Creatinine Ratio 12 (6-26); Blood Urea Nitrogen 11 mg/dL (8-23); Calcium 8.1 mg/dL (8.6-10.3); Carbon Dioxide 19 mEq/L (23-29); Chloride 114 mEq/L (98-107); Glucose 157 mg/dL (70-105); Osmolality,Calculated 293 (280-300); Potassium 3.8 mEq/L (3.5-5.1); Sodium 140 mEq/L (136-145); eGFR For African Americans > 60 (> 60); eGFR For Non-African Americans 60 (> 60)
[2021-09-03] MEDS: Insulin LISPRO 300 UNITS/3 ML VIAL SUBQ SCH ×4 (06:18→21:55)
[2021-09-03] MEDS: *HR* Insulin Regular U-500 500 UNIT/ML SUBQ SCH ×3 (08:49→17:43)
[2021-09-03] MEDS: Cholecalciferol (D-3) 1,000 UNIT (25MCG) TABLET PO SCH (08:50)
[2021-09-03] MEDS: Metoprolol XL (24 HR) Succ 50 MG TAB.ER.24H PO SCH ×2 (08:51→20:16)
[2021-09-03] MEDS: Folic Acid 1 MG TABLET PO SCH (08:51)
[2021-09-03] MEDS: Aspirin Enteric Coated 81 MG Tablet PO SCH (08:51)
[2021-09-03] MEDS: Furosemide 40 MG TABLET PO SCH (08:52)
[2021-09-03] MEDS: Lactobacillus 1 EACH CAP.SPRINK PO SCH (08:52)
[2021-09-03] MEDS: Topiramate 25 MG TABLET PO SCH ×2 (08:52→20:17)
[2021-09-03] MEDS: Pregabalin 75 MG CAPSULE PO SCH ×2 (08:53→20:16)
[2021-09-03] MEDS: Cyanocobalamin (B-12) 1,000 MCG TABLET PO SCH (08:53)
[2021-09-03] MEDS: Iron Sucrose Complex 250 MG in 0.9 % Sodium Chloride 250 ML IVPB SCH (11:28)
[2021-09-03 12:35] LABS: RBC,Peritoneal Fluid < 2000 RBC/mcL
[2021-09-03 12:37] LABS: Appearance of Peritoneal Fl CLEAR (Clear)
[2021-09-03 13:13] LABS: Glucose,Peritoneal Fluid 210 mg/dL (No Ref Range); LDH,Peritoneal Fluid 47 Units/L (No Ref Range); Total Protein,Peritoneal Fluid < 2.0 g/dL
[2021-09-03 13:44] LABS: Basophils,Peritoneal Fluid 0 %; Eosinophils,Peritoneal Fluid 0 %
[2021-09-03] MEDS: Loratadine 10 MG TABLET PO SCH (20:16)
[2021-09-04 05:49] LABS: Hematocrit 25.4 % (35.3-44.9); Hemoglobin 7.5 g/dL (11.5-15.4); Mean Corpuscular HGB Conc 29.5 g/dL (31.6-35.5); Mean Corpuscular Hemoglobin 24.8 pg (28.0-33.3); Mean Corpuscular Volume 84.1 fL (83.0-100.0); Mean Platelet Volume 11.3 fL (9.4-12.4); Platelet Count 167 K/mcL (140-400); Red Blood Count 3.02 M/mcL (3.82-4.97); Red Cell Distribution Width 18.6 % (11.5-14.5)
[2021-09-04 05:50] LABS: White Blood Count 7.7 K/mcL (4.3-11.1)
[2021-09-04 06:11] LABS: Alanine Aminotransferase 7 Units/L (7-52); Alkaline Phosphatase 90 Units/L (34-104); Aspartate Amino Transferase 14 Units/L (13-39); BUN/Creatinine Ratio 13 (6-26); Bilirubin,Indirect 0.4 mg/dL (0.0-1.0); Bilirubin,Total 0.4 mg/dL (0.3-1.0); Blood Urea Nitrogen 12 mg/dL (8-23); Calcium 8.1 mg/dL (8.6-10.3); Carbon Dioxide 21 mEq/L (23-29); Chloride 111 mEq/L (98-107); Globulin 3.1 g/dL (2.4-3.5); Glucose 44 mg/dL (70-105); Magnesium 1.6 mg/dL (1.6-2.6); Osmolality,Calculated 287 (280-300); Potassium 3.4 mEq/L (3.5-5.1); Sodium 140 mEq/L (136-145); Total Protein 6.1 g/dL (6.4-8.9); eGFR For African Americans > 60 (> 60); eGFR For Non-African Americans 59 (> 60)
[2021-09-04] MEDS: *HR* Insulin Regular U-500 500 UNIT/ML SUBQ SCH ×3 (08:19→16:50)
[2021-09-04] MEDS: Insulin LISPRO 300 UNITS/3 ML VIAL SUBQ SCH ×4 (08:20→20:21)
[2021-09-04] MEDS: Aspirin Enteric Coated 81 MG Tablet PO SCH (09:21)
[2021-09-04] MEDS: Folic Acid 1 MG TABLET PO SCH (09:25)
[2021-09-04] MEDS: Cholecalciferol (D-3) 1,000 UNIT (25MCG) TABLET PO SCH (09:26)
[2021-09-04] MEDS: Lactobacillus 1 EACH CAP.SPRINK PO SCH (09:27)
[2021-09-04] MEDS: Pregabalin 75 MG CAPSULE PO SCH ×2 (09:28→20:37)
[2021-09-04] MEDS: Topiramate 25 MG TABLET PO SCH ×2 (09:29→20:37)
[2021-09-04] MEDS: Furosemide 40 MG TABLET PO SCH (09:30)
[2021-09-04] MEDS: Metoprolol XL (24 HR) Succ 50 MG TAB.ER.24H PO SCH ×2 (09:30→20:36)
[2021-09-04] MEDS: Cyanocobalamin (B-12) 1,000 MCG TABLET PO SCH (09:30)
[2021-09-04] MEDS: Iron Sucrose Complex 250 MG in 0.9 % Sodium Chloride 250 ML IVPB SCH (10:20)
[2021-09-04] MEDS: Loratadine 10 MG TABLET PO SCH (20:37)
[2021-09-04] MEDS ORDERED: methylPREDNISolone 125 MG/2 ML VIAL IVP ONE (22:53)
[2021-09-05 02:43] LABS: Fluid Source for Albumin ASCITES FLUID
[2021-09-05] MEDS: Insulin LISPRO 300 UNITS/3 ML VIAL SUBQ SCH ×4 (06:00→21:47)
[2021-09-05] MEDS: Topiramate 25 MG TABLET PO SCH ×2 (08:30→21:46)
[2021-09-05] MEDS: *HR* Insulin Regular U-500 500 UNIT/ML SUBQ SCH ×3 (08:30→16:55)
[2021-09-05] MEDS: Folic Acid 1 MG TABLET PO SCH (08:31)
[2021-09-05] MEDS: Furosemide 40 MG TABLET PO SCH (08:31)
[2021-09-05] MEDS: Cholecalciferol (D-3) 1,000 UNIT (25MCG) TABLET PO SCH (08:31)
[2021-09-05] MEDS: Lactobacillus 1 EACH CAP.SPRINK PO SCH (08:31)
[2021-09-05] MEDS: Metoprolol XL (24 HR) Succ 50 MG TAB.ER.24H PO SCH ×2 (08:31→21:47)
[2021-09-05] MEDS: Pregabalin 75 MG CAPSULE PO SCH ×2 (08:31→21:46)
[2021-09-05] MEDS: Aspirin Enteric Coated 81 MG Tablet PO SCH (08:31)
[2021-09-05] MEDS: Cyanocobalamin (B-12) 1,000 MCG TABLET PO SCH (08:32)
[2021-09-05] MEDS: Iron Sucrose Complex 250 MG in 0.9 % Sodium Chloride 250 ML IVPB SCH (09:56)
[2021-09-05 13:43] LABS: Hematocrit 27.7 % (35.3-44.9); Hemoglobin 8.2 g/dL (11.5-15.4); Mean Corpuscular HGB Conc 29.6 g/dL (31.6-35.5); Mean Corpuscular Hemoglobin 25.9 pg (28.0-33.3); Mean Corpuscular Volume 87.4 fL (83.0-100.0); Mean Platelet Volume 10.3 fL (9.4-12.4); Platelet Count 163 K/mcL (140-400); Red Blood Count 3.17 M/mcL (3.82-4.97); Red Cell Distribution Width 20.6 % (11.5-14.5); White Blood Count 6.2 K/mcL (4.3-11.1)
[2021-09-05] MEDS: Loratadine 10 MG TABLET PO SCH (21:47)
[2021-09-06 02:35] LABS: Hemoglobin 7.7 g/dL (11.5-15.4); Mean Corpuscular HGB Conc 29.6 g/dL (31.6-35.5); Mean Corpuscular Volume 87.8 fL (83.0-100.0); Mean Platelet Volume 11.4 fL (9.4-12.4); Platelet Count 174 K/mcL (140-400); Red Blood Count 2.96 M/mcL (3.82-4.97); Red Cell Distribution Width 20.9 % (11.5-14.5); White Blood Count 5.3 K/mcL (4.3-11.1)
[2021-09-06] MEDS: Insulin LISPRO 300 UNITS/3 ML VIAL SUBQ SCH ×3 (07:37→17:18)
[2021-09-06] MEDS: *HR* Insulin Regular U-500 500 UNIT/ML SUBQ SCH ×3 (07:37→17:17)
[2021-09-06] MEDS: Iron Sucrose Complex 250 MG in 0.9 % Sodium Chloride 250 ML IVPB SCH (09:09)
[2021-09-06] MEDS: Folic Acid 1 MG TABLET PO SCH (09:10)
[2021-09-06] MEDS: Cholecalciferol (D-3) 1,000 UNIT (25MCG) TABLET PO SCH (09:10)
[2021-09-06] MEDS: Lactobacillus 1 EACH CAP.SPRINK PO SCH (09:10)
[2021-09-06] MEDS: Topiramate 25 MG TABLET PO SCH ×2 (09:10→20:45)
[2021-09-06] MEDS: Cyanocobalamin (B-12) 1,000 MCG TABLET PO SCH (09:10)
[2021-09-06] MEDS: Aspirin Enteric Coated 81 MG Tablet PO SCH (09:10)
[2021-09-06] MEDS: Furosemide 40 MG TABLET PO SCH (09:11)
[2021-09-06] MEDS: Pregabalin 75 MG CAPSULE PO SCH ×2 (09:11→20:38)
[2021-09-06] MEDS: Metoprolol XL (24 HR) Succ 50 MG TAB.ER.24H PO SCH ×2 (09:11→20:44)
[2021-09-06] MEDS: Loratadine 10 MG TABLET PO SCH (20:45)
[2021-09-07 03:22] LABS: Hematocrit 27.6 % (35.3-44.9); Hemoglobin 8.2 g/dL (11.5-15.4); Mean Corpuscular HGB Conc 29.7 g/dL (31.6-35.5); Mean Corpuscular Hemoglobin 26.5 pg (28.0-33.3); Mean Corpuscular Volume 89.3 fL (83.0-100.0); Mean Platelet Volume 11.3 fL (9.4-12.4); Platelet Count 189 K/mcL (140-400); Red Blood Count 3.09 M/mcL (3.82-4.97); Red Cell Distribution Width 22.3 % (11.5-14.5)
[2021-09-07 03:42] LABS: Potassium 3.6 mEq/L (3.5-5.1)
[2021-09-07] MEDS: *HR* Insulin Regular U-500 500 UNIT/ML SUBQ SCH ×3 (07:37→16:50)
[2021-09-07] MEDS: Insulin LISPRO 300 UNITS/3 ML VIAL SUBQ SCH ×3 (07:37→16:49)
[2021-09-07] MEDS: Metoprolol XL (24 HR) Succ 50 MG TAB.ER.24H PO SCH ×2 (07:38→20:35)
[2021-09-07] MEDS: Cholecalciferol (D-3) 1,000 UNIT (25MCG) TABLET PO SCH (07:38)
[2021-09-07] MEDS: Pregabalin 75 MG CAPSULE PO SCH ×2 (07:38→20:35)
[2021-09-07] MEDS: Cyanocobalamin (B-12) 1,000 MCG TABLET PO SCH (07:39)
[2021-09-07] MEDS: Aspirin Enteric Coated 81 MG Tablet PO SCH (07:39)
[2021-09-07] MEDS: Topiramate 25 MG TABLET PO SCH ×2 (07:39→20:35)
[2021-09-07] MEDS: Folic Acid 1 MG TABLET PO SCH (07:39)
[2021-09-07] MEDS: Furosemide 40 MG TABLET PO SCH (07:39)
[2021-09-07] MEDS: Lactobacillus 1 EACH CAP.SPRINK PO SCH (07:39)
[2021-09-07] MEDS: Loratadine 10 MG TABLET PO SCH (20:35)
[2021-09-08 02:50] LABS: Hematocrit 26.6 % (35.3-44.9); Hemoglobin 7.9 g/dL (11.5-15.4); Mean Corpuscular HGB Conc 29.7 g/dL (31.6-35.5); Mean Corpuscular Hemoglobin 26.8 pg (28.0-33.3); Mean Corpuscular Volume 90.2 fL (83.0-100.0); Mean Platelet Volume 10.9 fL (9.4-12.4); Platelet Count 166 K/mcL (140-400); Red Blood Count 2.95 M/mcL (3.82-4.97); Red Cell Distribution Width 23.3 % (11.5-14.5); White Blood Count 5.6 K/mcL (4.3-11.1)
[2021-09-08 03:08] LABS: Calcium 8.1 mg/dL (8.6-10.3); Potassium 3.7 mEq/L (3.5-5.1)
[2021-09-08] MEDS: Lactobacillus 1 EACH CAP.SPRINK PO SCH (07:31)
[2021-09-08] MEDS: Aspirin Enteric Coated 81 MG Tablet PO SCH (07:31)
[2021-09-08] MEDS: Insulin LISPRO 300 UNITS/3 ML VIAL SUBQ SCH ×3 (07:31→13:40)
[2021-09-08] MEDS: Cyanocobalamin (B-12) 1,000 MCG TABLET PO SCH (07:32)
[2021-09-08] MEDS: Topiramate 25 MG TABLET PO SCH (07:32)
[2021-09-08] MEDS: Pregabalin 75 MG CAPSULE PO SCH (07:32)
[2021-09-08] MEDS: Folic Acid 1 MG TABLET PO SCH (07:32)
[2021-09-08] MEDS: Cholecalciferol (D-3) 1,000 UNIT (25MCG) TABLET PO SCH (07:32)
[2021-09-08] MEDS: Metoprolol XL (24 HR) Succ 50 MG TAB.ER.24H PO SCH (07:32)
[2021-09-08] MEDS: *HR* Insulin Regular U-500 500 UNIT/ML SUBQ SCH ×3 (07:58→16:50)
[2021-09-08 13:53] VITALS: BP 115/78; PULSE 76; TEMP 97.9; O2SAT 99
[2021-09-08] MEDS ORDERED: Pregabalin 75 MG CAPSULE PO SCH (21:00)
== END 2021-09-08 18:10 | disposition short-term general hospital (02) | DRG 812 ==
LOC: 2NENU 06:24 → INVDIALAB 06:24 → 2NENU 09:11 → SUATTDRO 09-03 15:37
PROVIDERS: ADMIT Internal Medicine; ATTEND Internal Medicine

== ENCOUNTER 2021-10-19 07:12 | Observation (INO) ==
[2021-10-19] MEDS ORDERED: 0.9 % Sodium Chloride 1,000 ML ONE ×2 (08:18→08:38)
[2021-10-19] MEDS ORDERED: *HR* Midazolam HCl 2 MG/2 ML VIAL ONE (08:38)
[2021-10-19] MEDS ORDERED: *HR* FentaNYL (PF) 100 MCG/2 ML VIAL ONE (08:38)
[2021-10-19] MEDS ORDERED: Heparin 1,000 UNITS/500 mL 500 ML ONE (08:39)
[2021-10-19] MEDS ORDERED: *HR* Heparin 10,000 UNIT/10 ML VIAL ONE (08:39)
[2021-10-19] MEDS ORDERED: ISOVUE-370 200 ML INFUS..BTL ONE (08:39)
[2021-10-19] MEDS ORDERED: Nitroglycerin 1,000 MCG/5 ML VIAL IV ONE (08:39)
[2021-10-19] MEDS ORDERED: Tirofiban 12.5 MG/250ML 12.5 MG/250 ML BAG ONE (09:07)
[2021-10-19] MEDS ORDERED: Tirofiban 12.5 MG/250ML 12.5 MG/250 ML BAG IVC SCH (09:45)
[2021-10-19] MEDS ORDERED: Fluticasone Propionate Nasal 50 MCG/SPRAY BOTTLE NS PRN (09:50)
[2021-10-19] MEDS ORDERED: Albuterol 2.5 MG/3 ML NEBULIZER IH PRN (09:50)
[2021-10-19] MEDS: Insulin LISPRO 300 UNITS/3 ML VIAL SUBQ SCH ×2 (20:19→20:26)
[2021-10-19] MEDS: GuaiFENesin Liq 200 MG/10 ML UDC PO SCH (20:25)
[2021-10-19] MEDS: Topiramate 25 MG TABLET PO SCH (20:25)
[2021-10-19] MEDS: Pregabalin 75 MG CAPSULE PO SCH (20:25)
[2021-10-20 01:37] LABS: Hematocrit 18.7 % (35.3-44.9)
[2021-10-20 01:52] LABS: BUN/Creatinine Ratio 20 (6-26); Blood Urea Nitrogen 27 mg/dL (8-23); eGFR For African Americans 48 (> 60); eGFR For Non-African Americans 40 (> 60)
[2021-10-20 01:55] LABS: Hemoglobin 5.6 g/dL (11.5-15.4)
[2021-10-20 04:11] LABS: Hematocrit 19.8 % (35.3-44.9); Mean Corpuscular HGB Conc 28.8 g/dL (31.6-35.5); Mean Corpuscular Hemoglobin 30.3 pg (28.0-33.3); Mean Corpuscular Volume 105.3 fL (83.0-100.0); Red Blood Count 1.88 M/mcL (3.82-4.97)
[2021-10-20 04:13] LABS: Basophils % 0.3 %; Eosinophils # 0.1 K/mcL (0.0-0.6); Eosinophils % 2.8 %; Immature Platelets 3.5 % (1.1-6.1); Lymphocytes % 24.7 %; Mean Platelet Volume 11.6 fL (9.4-12.4); Monocytes # 0.4 K/mcL (0.0-1.3); Monocytes % 9.2 %; Neutrophils # 2.4 K/mcL (1.6-8.9); Red Cell Distribution Width 19.1 % (11.5-14.5); White Blood Count 3.9 K/mcL (4.3-11.1)
[2021-10-20 04:16] LABS: Hemoglobin 5.7 g/dL (11.5-15.4); Platelet Count 89 K/mcL (140-400)
[2021-10-20] MEDS ORDERED: 0.9 % Sodium Chloride 500 ML ONE (04:35)
[2021-10-20 04:53] LABS: Hypochromasia Present (Not Present); Platelet Estimate Decreased (Normal); Polychromasia 1+ (Not Present)
[2021-10-20] MEDS ORDERED: Tiotropium 10 INH DOSE IH ONE (07:52)
[2021-10-20] MEDS: Tiotropium 10 INH DOSE IH SCH (07:53)
[2021-10-20] MEDS: Cyanocobalamin (B-12) 1,000 MCG TABLET PO SCH (08:42)
[2021-10-20] MEDS: Topiramate 25 MG TABLET PO SCH ×2 (08:42→20:24)
[2021-10-20] MEDS: Folic Acid 1 MG TABLET PO SCH (08:42)
[2021-10-20] MEDS: Loratadine 10 MG TABLET PO SCH (08:42)
[2021-10-20] MEDS: Lactobacillus 1 EACH CAP.SPRINK PO SCH (08:42)
[2021-10-20] MEDS: Aspirin Enteric Coated 81 MG Tablet PO SCH (08:42)
[2021-10-20] MEDS: GuaiFENesin Liq 200 MG/10 ML UDC PO SCH ×2 (08:42→20:23)
[2021-10-20] MEDS: Metoprolol XL (24 HR) Succ 25 MG TAB.ER.24H PO SCH (08:42)
[2021-10-20] MEDS: *HR* Insulin Regular U-500 500 UNIT/ML SUBQ SCH ×3 (08:43→17:41)
[2021-10-20] MEDS: Pregabalin 75 MG CAPSULE PO SCH ×2 (08:43→20:24)
[2021-10-20] MEDS: Cholecalciferol (D-3) 1,000 UNIT (25MCG) TABLET PO SCH (08:43)
[2021-10-20] MEDS: Insulin LISPRO 300 UNITS/3 ML VIAL SUBQ SCH ×4 (08:43→20:15)
[2021-10-20 10:15] LABS: % Iron Saturation 24 % (15-50); Iron 77 mcg/dL (50-170); Transferrin 225 mg/dL (203-362)
[2021-10-20 10:32] LABS: Ferritin 50 ng/mL (10-120)
[2021-10-20 13:28] LABS: Hematocrit 24.1 % (35.3-44.9); Hemoglobin 7.1 g/dL (11.5-15.4); Nucleated Red Blood Cells 0.4 /100 WBC (0); Red Cell Distribution Width 19.1 % (11.5-14.5)
[2021-10-20 13:30] LABS: Basophils % 0.4 %; Eosinophils # 0.1 K/mcL (0.0-0.6); Eosinophils % 2.9 %; Hematocrit 24.2 % (35.3-44.9); Hemoglobin 7.1 g/dL (11.5-15.4); Immature Granulocytes % 0.4 % (0-4); Immature Platelets 3.9 % (1.1-6.1); Lymphocytes # 1.2 K/mcL (0.6-4.6); Lymphocytes % 24.3 %; Mean Corpuscular HGB Conc 29.3 g/dL (31.6-35.5); Mean Corpuscular Hemoglobin 29.8 pg (28.0-33.3); Mean Corpuscular Volume 101.7 fL (83.0-100.0); Monocytes # 0.3 K/mcL (0.0-1.3); Monocytes % 6.6 %; Neutrophils # 3.2 K/mcL (1.6-8.9); Red Blood Count 2.38 M/mcL (3.82-4.97); Segmented Neutrophils % 65.4 %; White Blood Count 4.9 K/mcL (4.3-11.1)
[2021-10-20 13:39] LABS: Platelet Count 89 K/mcL (140-400)
[2021-10-21 01:27] LABS: Basophils % 0.5 %; Eosinophils # 0.2 K/mcL (0.0-0.6); Eosinophils % 2.4 %; Hematocrit 26.4 % (35.3-44.9); Hemoglobin 8.1 g/dL (11.5-15.4); Immature Granulocytes % 1.4 % (0-4); Immature Platelets 4.1 % (1.1-6.1); Lymphocytes # 1.6 K/mcL (0.6-4.6); Lymphocytes % 26.1 %; Mean Corpuscular HGB Conc 30.7 g/dL (31.6-35.5); Mean Corpuscular Hemoglobin 29.9 pg (28.0-33.3); Mean Corpuscular Volume 97.4 fL (83.0-100.0); Mean Platelet Volume 11.2 fL (9.4-12.4); Monocytes # 0.5 K/mcL (0.0-1.3); Monocytes % 8.3 %; Neutrophils # 3.8 K/mcL (1.6-8.9); Nucleated Red Blood Cells 0.8 /100 WBC (0); Red Blood Count 2.71 M/mcL (3.82-4.97); Red Cell Distribution Width 19.6 % (11.5-14.5); Segmented Neutrophils % 61.3 %; White Blood Count 6.2 K/mcL (4.3-11.1)
[2021-10-21 01:29] LABS: Platelet Count 91 K/mcL (140-400)
[2021-10-21 01:37] LABS: BUN/Creatinine Ratio 27 (6-26); Blood Urea Nitrogen 28 mg/dL (8-23); Calcium 8.7 mg/dL (8.6-10.3); Carbon Dioxide 17 mEq/L (23-29); Chloride 117 mEq/L (98-107); Glucose 99 mg/dL (70-105); Osmolality,Calculated 298 (280-300); Potassium 4.4 mEq/L (3.5-5.1); Sodium 141 mEq/L (136-145); eGFR For African Americans > 60 (> 60); eGFR For Non-African Americans 53 (> 60)
[2021-10-21] MEDS: Tiotropium 10 INH DOSE IH SCH (07:15)
[2021-10-21] MEDS: Loratadine 10 MG TABLET PO SCH (08:35)
[2021-10-21] MEDS: GuaiFENesin Liq 200 MG/10 ML UDC PO SCH ×2 (08:35→20:35)
[2021-10-21] MEDS: Topiramate 25 MG TABLET PO SCH ×2 (08:36→20:36)
[2021-10-21] MEDS: Folic Acid 1 MG TABLET PO SCH (08:36)
[2021-10-21] MEDS: Pregabalin 75 MG CAPSULE PO SCH ×2 (08:36→20:36)
[2021-10-21] MEDS: Aspirin Enteric Coated 81 MG Tablet PO SCH (08:36)
[2021-10-21] MEDS: Metoprolol XL (24 HR) Succ 25 MG TAB.ER.24H PO SCH (08:36)
[2021-10-21] MEDS: Lactobacillus 1 EACH CAP.SPRINK PO SCH (08:36)
[2021-10-21] MEDS: Insulin LISPRO 300 UNITS/3 ML VIAL SUBQ SCH ×4 (08:37→20:36)
[2021-10-21] MEDS: *HR* Insulin Regular U-500 500 UNIT/ML SUBQ SCH ×3 (08:37→15:54)
[2021-10-21] MEDS: Cholecalciferol (D-3) 1,000 UNIT (25MCG) TABLET PO SCH (08:37)
[2021-10-21] MEDS: Cyanocobalamin (B-12) 1,000 MCG TABLET PO SCH (08:37)
[2021-10-21 11:36] LABS: Hemoglobin 7.7 g/dL (11.5-15.4)
[2021-10-21] MEDS ORDERED: Dextrose 4 GM Chewable Tablets PO PRN ×2 (12:10)
[2021-10-21] MEDS ORDERED: D5% in Water 1,000 ML IVC PRN (12:10)
[2021-10-21] MEDS ORDERED: *HR* Dextrose 50 % in Water (Syg) 50 ML SYRINGE IVP PRN (12:10)
[2021-10-21] MEDS ORDERED: Iron Sucrose Complex 400 MG in 0.9 % Sodium Chloride 250 ML IVPB ONE (13:03)
[2021-10-21 16:27] LABS: Estimated Average Glucose 105 mg/dl; Hemoglobin A1C 5.3 %
[2021-10-21] MEDS: Doxycycline 100 MG CAPSULE PO SCH (17:04)
[2021-10-22 04:07] LABS: Basophils % 0.5 %; Eosinophils # 0.2 K/mcL (0.0-0.6); Eosinophils % 3.2 %; Hematocrit 28.7 % (35.3-44.9); Immature Granulocytes % 1.2 % (0-4); Lymphocytes # 1.2 K/mcL (0.6-4.6); Lymphocytes % 19.8 %; Mean Corpuscular HGB Conc 31.4 g/dL (31.6-35.5); Mean Corpuscular Hemoglobin 30.7 pg (28.0-33.3); Mean Platelet Volume 12.3 fL (9.4-12.4); Monocytes # 0.5 K/mcL (0.0-1.3); Monocytes % 8.4 %; Nucleated Red Blood Cells 1.2 /100 WBC (0); Red Blood Count 2.93 M/mcL (3.82-4.97); Red Cell Distribution Width 19.5 % (11.5-14.5); Segmented Neutrophils % 66.9 %
[2021-10-22 04:08] LABS: Platelet Count 88 K/mcL (140-400)
[2021-10-22 04:29] LABS: BUN/Creatinine Ratio 22 (6-26); Blood Urea Nitrogen 23 mg/dL (8-23); Calcium 8.4 mg/dL (8.6-10.3); Carbon Dioxide 19 mEq/L (23-29); Chloride 117 mEq/L (98-107); Glucose 126 mg/dL (70-105); Magnesium 1.7 mg/dL (1.6-2.6); Osmolality,Calculated 297 (280-300); Potassium 4.2 mEq/L (3.5-5.1); Sodium 141 mEq/L (136-145); eGFR For African Americans > 60 (> 60); eGFR For Non-African Americans 53 (> 60)
[2021-10-22] MEDS: Doxycycline 100 MG CAPSULE PO SCH (05:01)
[2021-10-22] MEDS: GuaiFENesin Liq 200 MG/10 ML UDC PO SCH (09:09)
[2021-10-22] MEDS: *HR* Insulin Regular U-500 500 UNIT/ML SUBQ SCH ×2 (09:09→13:43)
[2021-10-22] MEDS: Cholecalciferol (D-3) 1,000 UNIT (25MCG) TABLET PO SCH (09:10)
[2021-10-22] MEDS: Aspirin Enteric Coated 81 MG Tablet PO SCH (09:10)
[2021-10-22] MEDS: Metoprolol XL (24 HR) Succ 25 MG TAB.ER.24H PO SCH (09:10)
[2021-10-22] MEDS: Pregabalin 75 MG CAPSULE PO SCH (09:10)
[2021-10-22] MEDS: Folic Acid 1 MG TABLET PO SCH (09:10)
[2021-10-22] MEDS: Lactobacillus 1 EACH CAP.SPRINK PO SCH (09:10)
[2021-10-22] MEDS: Cyanocobalamin (B-12) 1,000 MCG TABLET PO SCH (09:11)
[2021-10-22] MEDS: Loratadine 10 MG TABLET PO SCH (09:11)
[2021-10-22] MEDS: Insulin LISPRO 300 UNITS/3 ML VIAL SUBQ SCH ×2 (09:11→13:43)
[2021-10-22] MEDS: Topiramate 25 MG TABLET PO SCH (09:11)
[2021-10-22] MEDS: Tiotropium 10 INH DOSE IH SCH (09:43)
[2021-10-22 11:08] VITALS: BP 121/64; PULSE 89; TEMP 98.4; O2SAT 99
[2021-10-22] MEDS ORDERED: Topiramate 25 MG TABLET PO SCH (21:00)
== END 2021-10-22 15:24 | disposition home or self-care (01) ==
LOC: 2ANU 07:12 → INVDIALAB 07:12 → 2ANU 12:59 → SUATTDRO 10-20 12:35
PROVIDERS: ADMIT Internal Medicine Cardiovascular Disease; ATTEND General Practice

== ENCOUNTER 2021-12-25 13:20 | Inpatient (IN) ==
[2021-12-25 14:24] LABS: Basophils % 0.6 %; Eosinophils # 0.1 K/mcL (0.0-0.6); Eosinophils % 1.5 %; Hematocrit 18.2 % (35.3-44.9); Immature Granulocytes % 0.9 % (0-4); Lymphocytes # 1.4 K/mcL (0.6-4.6); Lymphocytes % 26.5 %; Mean Corpuscular HGB Conc 26.9 g/dL (31.6-35.5); Mean Corpuscular Volume 107.7 fL (83.0-100.0); Mean Platelet Volume 11.4 fL (9.4-12.4); Monocytes # 0.4 K/mcL (0.0-1.3); Monocytes % 7.7 %; Platelet Count 106 K/mcL (140-400); Red Blood Count 1.69 M/mcL (3.82-4.97); Segmented Neutrophils % 62.8 %; White Blood Count 5.3 K/mcL (4.3-11.1)
[2021-12-25 14:45] LABS: Albumin 3.2 g/dL (3.5-5.7); Albumin/Globulin Ratio 1.2 (1.1-2.2); Bilirubin,Total 0.3 mg/dL (0.3-1.0); Calcium 7.9 mg/dL (8.6-10.3); Globulin 2.6 g/dL (2.4-3.5); Potassium 4.3 mEq/L (3.5-5.1); Total Protein 5.8 g/dL (6.4-8.9)
[2021-12-25 14:49] LABS: Hemoglobin 4.9 g/dL (11.5-15.4); Neutrophils # 3.3 K/mcL (1.6-8.9)
[2021-12-25 15:20] LABS: Anisocytosis 1+ (Not Present); Hypochromasia Present (Not Present)
[2021-12-25 15:21] LABS: Platelet Estimate Slight Decrease (Normal); Polychromasia 1+ (Not Present)
[2021-12-25] MEDS ORDERED: 0.9 % Sodium Chloride 1,000 ML IVC ONE (16:20)
[2021-12-25] MEDS ORDERED: Naloxone 0.4 MG/ML INJ IVP PRN (17:08)
[2021-12-25] MEDS ORDERED: Melatonin 3 MG TABLET PO PRN (17:08)
[2021-12-25] MEDS ORDERED: Acetaminophen 325 MG TABLET PO PRN (17:08)
[2021-12-25] MEDS ORDERED: Ondansetron ODT 4 MG TAB.RAPDIS SL PRN (17:08)
[2021-12-25] MEDS ORDERED: Dextrose Gel 15 GM/37.5 ML TUBE PO PRN ×2 (18:05)
[2021-12-25] MEDS ORDERED: D5% in Water 1,000 ML IVC PRN (18:05)
[2021-12-25] MEDS ORDERED: *HR* Dextrose 50 % in Water (Syg) 50 ML SYRINGE IVP PRN (18:05)
[2021-12-25 18:06] LABS: Bilirubin,Direct 0.1 mg/dL (0.0-0.2); Bilirubin,Indirect 0.2 mg/dL (0.0-1.0)
[2021-12-25] MEDS ORDERED: Albuterol 2.5 MG/3 ML NEBULIZER IH PRN (18:21)
[2021-12-25] MEDS ORDERED: Nitroglycerin 0.4 MG TAB.SUBL SL PRN (18:21)
[2021-12-25] MEDS: Pregabalin 75 MG CAPSULE PO SCH (20:55)
[2021-12-25] MEDS: Chlorhexidine Rinse 15 ML MOUTHWASH MM SCH ×2 (20:55→21:23)
[2021-12-25] MEDS: Topiramate 25 MG TABLET PO SCH (20:56)
[2021-12-25] MEDS ORDERED: Aspirin Enteric Coated 81 MG Tablet PO SCH (21:00)
[2021-12-26 01:09] LABS: Hematocrit 23.9 % (35.3-44.9); Red Cell Distribution Width 19.4 % (11.5-14.5)
[2021-12-26 01:11] LABS: Basophils % 0.6 %; Eosinophils # 0.1 K/mcL (0.0-0.6); Eosinophils % 2.7 %; Hemoglobin 7.3 g/dL (11.5-15.4); Immature Platelets 3.5 % (1.1-6.1); Lymphocytes % 21.1 %; Mean Corpuscular HGB Conc 30.5 g/dL (31.6-35.5); Mean Corpuscular Hemoglobin 29.7 pg (28.0-33.3); Mean Corpuscular Volume 97.2 fL (83.0-100.0); Mean Platelet Volume 11.2 fL (9.4-12.4); Monocytes # 0.3 K/mcL (0.0-1.3); Monocytes % 5.9 %; Neutrophils # 3.3 K/mcL (1.6-8.9); Nucleated Red Blood Cells 0.6 /100 WBC (0); Red Blood Count 2.46 M/mcL (3.82-4.97); Segmented Neutrophils % 68.7 %; White Blood Count 4.8 K/mcL (4.3-11.1)
[2021-12-26 01:15] LABS: Platelet Count 97 K/mcL (140-400)
[2021-12-26 01:29] LABS: Calcium 7.6 mg/dL (8.6-10.3); Chol/HDL Ratio 4.2 (0-4.9); Phosphorous 2.4 mg/dL (2.7-4.5); Potassium 4.7 mEq/L (3.5-5.1)
[2021-12-26] MEDS: Pantoprazole 40 MG VIAL IVP SCH ×3 (05:20→16:03)
[2021-12-26] MEDS: Insulin LISPRO 300 UNITS/3 ML VIAL SUBQ SCH ×4 (07:29→16:04)
[2021-12-26] MEDS ORDERED: Tiotropium 10 INH DOSE IH ONE (07:37)
[2021-12-26 07:41] VITALS: O2SAT 100
[2021-12-26] MEDS: Pregabalin 75 MG CAPSULE PO SCH (08:59)
[2021-12-26] MEDS: Topiramate 25 MG TABLET PO SCH (08:59)
[2021-12-26] MEDS: Chlorhexidine Rinse 15 ML MOUTHWASH MM SCH (08:59)
[2021-12-26] MEDS ORDERED: Furosemide 20 MG TABLET PO SCH (09:00)
[2021-12-26] MEDS ORDERED: Spironolactone 25 MG TABLET PO SCH (09:00)
[2021-12-26] MEDS ORDERED: Metoprolol XL (24 HR) Succ 25 MG TAB.ER.24H PO SCH (09:00)
[2021-12-26] MEDS ORDERED: 0.9 % Sodium Chloride 1,000 ML IVC SCH (09:45)
[2021-12-26] MEDS ORDERED: Tiotropium 10 INH DOSE IH SCH (10:00)
[2021-12-26 14:24] LABS: Hematocrit 40.6 % (35.3-44.9); Hemoglobin 12.3 g/dL (11.5-15.4)
[2021-12-26] MEDS: Calcium Gluconate 1gm/50mL 1 GM/50 ML BAG IVPB SCH ×2 (14:39→16:04)
[2021-12-26 16:01] VITALS: BP 122/62; PULSE 77; TEMP 97.3
[2021-12-26 17:25] LABS: Hematocrit 28.9 % (35.3-44.9)
[2021-12-26 17:30] LABS: Hemoglobin 8.4 g/dL (11.5-15.4)
== END 2021-12-26 17:45 | disposition home or self-care (01) | DRG 812 ==
LOC: EMEROOARM 13:20 → 3NENU 13:20
PROVIDERS: ADMIT Internal Medicine; ATTEND Internal Medicine

== ENCOUNTER 2021-12-31 15:38 | Inpatient (IN) ==
[2021-12-31] MEDS ORDERED: 0.9 % Sodium Chloride 1,000 ML IVC ONE (16:05)
[2021-12-31 16:08] LABS: Immature Granulocytes % 0.8 % (0-4); Mean Corpuscular Volume 101.3 fL (83.0-100.0)
[2021-12-31 16:10] LABS: Basophils % 0.8 %; Eosinophils # 0.1 K/mcL (0.0-0.6); Hematocrit 23.2 % (35.3-44.9); Hemoglobin 6.5 g/dL (11.5-15.4); Immature Platelets 6.6 % (1.1-6.1); Lymphocytes # 1.1 K/mcL (0.6-4.6); Lymphocytes % 21.8 %; Mean Corpuscular Hemoglobin 28.4 pg (28.0-33.3); Mean Platelet Volume 12.1 fL (9.4-12.4); Monocytes # 0.4 K/mcL (0.0-1.3); Monocytes % 7.7 %; Red Blood Count 2.29 M/mcL (3.82-4.97); Red Cell Distribution Width 18.4 % (11.5-14.5); Segmented Neutrophils % 66.9 %
[2021-12-31 16:16] LABS: INR 1.1; Prothrombin Time 12.4 Seconds (9.4-12.1)
[2021-12-31 16:19] LABS: Activated Partial Thrombo Time 30.1 Seconds (26.0-36.0)
[2021-12-31 16:38] LABS: Albumin 3.3 g/dL (3.5-5.7); Albumin/Globulin Ratio 1.3 (1.1-2.2); Bilirubin,Total 0.3 mg/dL (0.3-1.0); Calcium 7.8 mg/dL (8.6-10.3); Globulin 2.6 g/dL (2.4-3.5); Potassium 4.8 mEq/L (3.5-5.1); Total Protein 5.9 g/dL (6.4-8.9)
[2021-12-31 16:45] LABS: Neutrophils # 3.4 K/mcL (1.6-8.9); Platelet Count 94 K/mcL (140-400)
[2021-12-31 16:47] LABS: Anisocytosis 1+ (Not Present); Hypochromasia Present (Not Present); Platelet Estimate Decreased (Normal)
[2021-12-31] MEDS ORDERED: 0.9 % Sodium Chloride 250 ML ONE (17:02)
[2021-12-31] MEDS ORDERED: Albuterol 2.5 MG/3 ML NEBULIZER IH PRN (18:11)
[2021-12-31] MEDS ORDERED: Nitroglycerin 0.4 MG TAB.SUBL SL PRN (18:11)
[2021-12-31] MEDS ORDERED: Topiramate 25 MG TABLET PO ONE (21:00)
[2021-12-31] MEDS ORDERED: Aspirin Enteric Coated 81 MG Tablet PO SCH (21:00)
[2021-12-31 21:05] LABS: Hematocrit 24.5 % (35.3-44.9); Hemoglobin 7.1 g/dL (11.5-15.4)
[2022-01-01 02:28] LABS: Basophils % 0.8 %
[2022-01-01 02:29] LABS: Eosinophils # 0.1 K/mcL (0.0-0.6); Eosinophils % 2.1 %; Hematocrit 23.9 % (35.3-44.9); Hemoglobin 7.1 g/dL (11.5-15.4); Immature Granulocytes % 0.5 % (0-4); Immature Platelets 4.5 % (1.1-6.1); Lymphocytes % 26.7 %; Mean Corpuscular HGB Conc 29.7 g/dL (31.6-35.5); Mean Corpuscular Hemoglobin 29.2 pg (28.0-33.3); Mean Corpuscular Volume 98.4 fL (83.0-100.0); Mean Platelet Volume 12.1 fL (9.4-12.4); Monocytes # 0.4 K/mcL (0.0-1.3); Monocytes % 9.9 %; Neutrophils # 2.2 K/mcL (1.6-8.9); Red Blood Count 2.43 M/mcL (3.82-4.97); Red Cell Distribution Width 19.1 % (11.5-14.5); White Blood Count 3.7 K/mcL (4.3-11.1)
[2022-01-01 02:31] LABS: Platelet Count 79 K/mcL (140-400)
[2022-01-01 02:45] LABS: Calcium 7.9 mg/dL (8.6-10.3); Potassium 5.2 mEq/L (3.5-5.1)
[2022-01-01 06:58] LABS: Bacteria,Urine Moderate per hpf (None-Few); Bilirubin,Urine Negative (Negative); Blood,Urine Negative (Negative); Clarity,Urine Clear (Clear); Color,Urine Light-Yellow (Yellow); Glucose,Urine (UA) 70 mg/dL (Normal); Ketones,Urine Negative (Negative); Leukocyte Esterase,Urine Moderate (Negative); Nitrite,Urine Positive (Negative); PH,Urine 6.5 pH Units (5.0-8.0); Protein,Urine Negative (Neg-Trace); RBC,Urine 0-3 per hpf (0-3); Specific Gravity,Urine 1.013 (1.010-1.025); Squamous Epithelial Cell,Urine Few per hpf (None-Few); Urobilinogen,Urine Normal (Normal); WBC,Urine 15-30 per hpf (0-3)
[2022-01-01] MEDS ORDERED: 0.9 % Sodium Chloride 250 ML ONE (08:30)
[2022-01-01] MEDS ORDERED: Iron Sucrose Complex 200 MG in 0.9 % Sodium Chloride 100 ML IVPB ONE ×2 (08:31→14:45)
[2022-01-01] MEDS ORDERED: Folic Acid 1 MG TABLET PO SCH (09:00)
[2022-01-01] MEDS ORDERED: Cyanocobalamin (B-12) 1,000 MCG TABLET PO SCH (09:00)
[2022-01-01] MEDS ORDERED: cefTRIAXone 1,000 MG in 0.9 % Sodium Chloride 10 ML IVP SCH (09:00)
[2022-01-01] MEDS ORDERED: TOPIRAMATE PO SCH (09:00)
[2022-01-01 13:40] LABS: Hematocrit 30.8 % (35.3-44.9); Hemoglobin 9.1 g/dL (11.5-15.4)
[2022-01-01] MEDS ORDERED: Albuterol 2.5 MG/3 ML NEBULIZER IH PRN (13:44)
[2022-01-01] MEDS ORDERED: Nitroglycerin 0.4 MG TAB.SUBL SL PRN (13:44)
[2022-01-01] MEDS: Insulin LISPRO 300 UNITS/3 ML VIAL SUBQ SCH ×3 (15:21→20:02)
[2022-01-01] MEDS: TOPIRAMATE PO SCH (20:33)
[2022-01-01] MEDS ORDERED: Aspirin Enteric Coated 81 MG Tablet PO SCH (21:00)
[2022-01-02 07:20] VITALS: TEMP 98.4
[2022-01-02] MEDS ORDERED: cefTRIAXone 1,000 MG in 0.9 % Sodium Chloride 10 ML IVP SCH (09:00)
[2022-01-02] MEDS ORDERED: Folic Acid 1 MG TABLET PO SCH (09:00)
[2022-01-02] MEDS ORDERED: Cyanocobalamin (B-12) 1,000 MCG TABLET PO SCH (09:00)
[2022-01-02] MEDS: TOPIRAMATE PO SCH (09:18)
[2022-01-02] MEDS: Insulin LISPRO 300 UNITS/3 ML VIAL SUBQ SCH ×2 (09:21→13:05)
[2022-01-02] MEDS ORDERED: Furosemide 20 MG TABLET PO SCH (10:15)
[2022-01-02 12:43] VITALS: BP 142/66; PULSE 87; O2SAT 99
== END 2022-01-02 13:40 | disposition home or self-care (01) | DRG 811 ==
LOC: EMEROOARM 15:38 → ICNU 15:38 → SUATTDRO 18:24 → 3NENU 01-01 13:15
PROVIDERS: ADMIT Family Medicine; ATTEND Family Medicine

== ENCOUNTER 2022-03-02 12:38 | Observation (INO) ==
[~2022-03-02 12:38] MED LIST: 0.9 % Sodium Chloride 250 ML IVC SCH
[2022-03-02 20:38] VITALS: BP 112/59; PULSE 84; TEMP 97.9; O2SAT 97
== END 2022-03-02 21:00 | disposition home or self-care (01) ==
LOC: 1NENUPED 12:38 → INFINJ 12:38
PROVIDERS: ADMIT Internal Medicine; ATTEND Internal Medicine